=== PATIENT | male | born 1950 | race Caucasian/White ===

== ENCOUNTER 2018-11-27 19:04 | Emergency (ER) | payer OTHER ==
--- OUTSIDE RECORDS SUMMARY | 2018-11-27 19:08 | XMS REPORT | CCD ---
:1950 Demographics Address [address] [place] [address]- Home Phone Preferred Language Unknown Marital Status Unknown [employer]ar[employer] Affiliation Unknown Race Unknown Ethnic Group Unknown Author Organization [facility] Care Team Providers Name Role Phone Herlinda Sheikh Consulting Provider Unavailable Leslie Blum Consulting Provider TeriYeimy silvestre Consulting Provider Unavailable Neal Sethi Consulting Provider Unavailable PapThalia bell Consulting Provider Unavailable ChartServer, Login Consulting Provider Unavailable Cornelio Odell Consulting Provider Unavailable NONE, None Primary Care Provider Unavailable Franca Torres Consulting Provider Unavailable Adithya Larios Consulting Provider Unavailable Harley III, Justice A Consulting Provider Unavailable SYSTEM, SYSTEM Consulting Provider Unavailable Jes Nassar Consulting Provider Jose Enrique Zamora Consulting Provider Unavailable Andrew Rm Consulting Provider [phone] Tere Vivar Consulting Provider Unavailable Lori Bill Consulting Provider Unavailable Lyssa Draper Consulting Provider Dontae Quesada Consulting Provider [phone] Mike Newton Consulting Provider Argelia Tolbert Consulting Provider Mayelin Carrillo Consulting Provider Unavailable Prasanna Brandt Consulting Provider Unavailable Jeff Diamond Consulting Provider Sarah Lindsay Consulting Provider Nedra Saba Consulting Provider Unavailable Wood Sethi II Consulting Provider Unavailable Sherly Langford Consulting Provider Allergies, Adverse Reactions, Alerts Substance Reaction Status CODEINE ?? Active penicillins ?? Active Problem List Condition Effective Dates Status Kidney stone ?? Active Nephrostomy tube ?? Active Pain ?? Active Medications Medication Instructions Start Date End Date Status hydromorphone 1 mg, Route: IVP, ONCE, 01/20/2011 01/20/2011 Completed Priority: STAT, Start date: 01/20/11 17:54:00, Stop date: 01/20/11 17:54:00 Levsin SL 0.125 mg 0.125 mg, 1 tab, SL, 01/20/2011 ?? Ordered sublingual tablet Q8H, 90 tab, Substitution Allowed, TAB Levsin SL 0.125 mg 0.125 mg, 1 tab, SL, 01/20/2011 ?? Ordered sublingual tablet Q8H, 90 tab, Substitution Allowed, TAB Dilaudid 2 mg, Route: IV, ONCE, 01/20/2011 01/20/2011 Completed Priority: STAT, Start date: 01/20/11 17:55:00, Stop date: 01/20/11 17:55:00 ondansetron 4 mg, Route: IVP, Drug 01/20/2011 01/20/2011 Completed form: INJ, ONCE, Priority: STAT, Start date: 01/20/11 19:18:00, Stop date: 01/20/11 19:18:00 morphine Sulfate 4 mg, 1 mL, Route: IVP, 01/20/2011 01/20/2011 Discontinued Drug form: INJ, ONCE, Priority: STAT, Start date: 01/20/11 16:44:00, Stop date: 01/20/11 16:44:00 Sodium Chloride 0.9% 500 mL, Rate: 500 ml/hr, 01/20/2011 01/20/2011 Completed (Bolus) IV 500 mL Infuse over: 1 hr, Route: IV, Total Volume: 500, Bolus Dose, Priority: STAT, Start date: 01/20/11 16:44:00, Duration: 1 doses or times, Stop date: 01/20/11 17:43:00 Vital Signs Most recent to oldest 1 2 3 [Reference Range]: Height 175.26 cm ? (01/20/2011 12:27:00) ?? Temperature Oral 97.4 DegF 98.0 DegF 97.0 DegF [96.4-99.1 DegF] (01/20/2011 22:33:00) ?? (01/20/2011 17:07:00) ?? (2010 12:27:00) ?? Systolic Blood Pressure 125 mmHg 140 mmHg 133 mmHg [90-140 mmHg] (01/20/2011 22:33:00) ?? (01/20/2011 19:57:00) ?? (01/20/2011 17:07:00) ?? Diastolic Blood Pressure 68 mmHg 73 mmHg 70 mmHg [60-90 mmHg] (01/20/2011 22:33:00) ?? (01/20/2011 19:57:00) ?? (01/20/2011 17:07:00) ?? Respiratory Rate [14-20 18 BRMIN 16 BRMIN 16 BRMIN BRMIN] (01/20/2011 22:33:00) ?? (01/20/2011 19:57:00) ?? (01/20/2011 17:07: 00) ?? Peripheral Pulse Rate 61 bpm 61 bpm 68 bpm [60-100 bpm] (01/20/2011 22:33:00) ?? (01/20/2011 19:57:00) ?? (01/20/2011 17:07:00) ?? Weight 56.364 kg ? (01/20/2011 12:27:00) ?? Results URINALYSIS Most recent to oldest [Reference Range]: 1 UA Turbidity [>Clear] Cloudy *ABN* (01/20/2011 17:30:00) ?? UA Color [>Yellow] Red *ABN* (01/20/2011 17:30:00) ?? UA pH [5.0-8.0] 7.0 (01/20/2011 17:30:00) ?? UA Spec Grav [<<=1.030] 1.020 (01/20/2011 17:30:00) ?? UA Glucose [>Negative] Negative (01/20/2011 17:30:00) ?? UA Blood [>Negative] Large *ABN* (01/20/2011 17:30:00) ?? UA Ketones [>Negative] Negative *NA* (01/20/2011 17:30:00) ?? UA Protein [>Negative mg/dL] 100 mg/dL *ABN* (01/20/2011 17:30:00) ?? UA Urobilinogen [0.1-1.0 EU/dL] 0.2 EU/dL (01/20/2011 17:30:00) ?? UA Bili [>Negative] Negative (01/20/2011 17:30:00) ?? UA Leuk Est [>Negative] Moderate *ABN* (01/20/2011 17:30:00) ?? UA Nitrite [>Negative] Negative (01/20/2011 17:30:00) ?? UA WBC [>None Seen /HPF] 0-2 /HPF (01/20/2011 17:30:00) ?? UA RBC [>0-2 /HPF] >100 /HPF *ABN* (01/20/2011 17:30:00) ?? UA Bacteria [>None Seen /HPF] Occasional /HPF (01/20/2011 17:30:00) ?? UA Sq Epi [>Few /LPF] Rare /LPF (01/20/2011 17:30:00) ?? UA Amorph Letty [>None Seen /HPF] Occasional /HPF *ABN* (01/20/2011 17:30:00) ?? UA Mucus [>None Seen] None Seen (01/20/2011 17:30:00) ?? CHEMISTRY Most recent to oldest [Reference Range]: 1 Sodium Lvl [135-145 mEq/L] 135 mEq/L (01/20/2011 17:30:00) ?? Potassium Lvl [3.5-5.1 mEq/L] 4.3 mEq/L (01/20/2011 17:30:00) ?? Chloride Lvl [95-109 mEq/L] 97 mEq/L (01/20/2011 17:30:00) ?? CO2 [24-32 mEq/L] 28 mEq/L (01/20/2011 17:30:00) ?? AGAP [10.0-20.0 mEq/L] 14.3 mEq/L (01/20/2011 17:30:00) ?? Creatinine Lvl [0.5-1.4 mg/dL] 1.3 mg/dL (01/20/2011 17:30:00) ?? BUN [7-22 mg/dL] 14 mg/dL (01/20/2011 17:30:00) ?? Glucose Lvl 90 mg/dL 1 *NA* (01/20/2011 17:30:00) ?? Calcium Lvl [8.5-10.5 mg/dL] 9.1 mg/dL (01/20/2011 17:30:00) ?? 1Interpretive Data: Reference Ranges : 0 - 7 days : 41 - 90 mg/dL7 days - 150 yrs : 70 - 99 mg/dL (fasting), based on the clinical recommendations of the [employer].HEMATOLOGY Most recent to oldest [Reference Range]: 1 WBC [3.7-10.4 K/CMM] 5.4 K/CMM (01/20/2011 17:30:00) ?? RBC [4.70-6.10 M/CMM] 4.51 M/CMM *LOW* (01/20/2011:30:00) ?? Hgb [14.0-18.0 g/dL] 14.4 g/dL (01/20/2011:30:00) ?? Hct [42.0-54.0 %] 42.2 % (01/20/2011:30:00) ?? MCV [80.0-94.0 fL] 93.6 fL (01/20/2011:30:00) ?? MCH [27.0-31.0 pg] 31.8 pg *HI* (01/20/2011:30:00) ?? MCHC [32.0-36.0 g/dL] 34.0 g/dL (01/20/2011:30:00) ?? RDW [11.5-14.5 %] 12.5 % (01/20/2011:30:00) ?? Platelet [133-450 K/CMM] 183 K/CMM (01/20/2011:30:00) ?? MPV [7.4-10.4 fL] 8.1 fL (01/20/2011:30:00) ?? Segs [45.0-75.0 %] 65.0 % (01/20/2011:30:00) ?? Lymphocytes [20.0-40.0 %] 22.3 % (01/20/2011:30:00) ?? Monocytes [2.0-12.0 %] 8.1 % (01/20/2011:30:00) ?? Eosinophils [0.0-4.0 %] 3.0 % (01/20/2011 17:30:00) ?? Basophils [0.0-1.0 %] 1.6 % *HI* (01/20/2011 17:30:00) ?? Segs-Bands # [1.5-8.1 K/CMM] 3.5 K/CMM (01/20/2011 17:30:00) ?? Lymphocytes # [1.0-5.5 K/CMM] 1.2 K/CMM (01/20/2011 17:30:00) ?? Monocytes # [0.0-0.8 K/CMM] 0.4 K/CMM (01/20/2011 17:30:00) ?? Eosinophils # [0.0-0.5 K/CMM] 0.2 K/CMM (01/20/2011 17:30:00) ?? Basophils # [0.0-0.2 K/CMM] 0.1 K/CMM (01/20/2011 17:30:00) ?? RBC Morph Normal (01/20/2011 17:30:00) ?? Plt Morph Normal (01/20/2011 17:30:00) ?? IMMUNOLOGY Most recent to oldest [Reference Range]: 1 CDC-HIV 1/2 Ab [>Negative] Negative *NA* (01/20/2011 17:41:00) ?? Microbiology Reports PROCEDURE:Culture: Urine STATUS: Auth (Verified) BODY SITE: ?? COLLECTED DATE/TIME: 01/20/2011 16:40:00 SOURCE: Urine, Catheterized FREE TEXT SOURCE: CUP FINAL REPORTS Final ReportNo Growth At 2 DaysPRELIMINARY REPORTS* Preliminary ReportNo Growth After Overnight Incubation
--- OUTSIDE RECORDS SUMMARY | 2018-11-27 19:08 | XMS REPORT | Continuity of Care Document ---
:1950 Demographics Address [address] [place] [address] Home Phone Preferred Language en-US Marital Status Unknown Hoahaoism Affiliation Unknown Race Unknown Ethnic Group Unknown Author Organization [facility] Care Team Providers Name Role Phone [employer] Unavailable Unavailable Problems Problem Status Onset Classification Date Comments Source Date Reported CHEST PAIN Active [place] LOWER BACK PAIN Active [address] KIDNEY STONES Active [address] LIFEFL[employer] Active [address] HEADACHE Active [address] Kidney stone Active Problem 01/26/2011 [facility] [place] Nephrostomy Active Problem 01/26/2011 [facility] [place] Pain Active Problem 01/26/2011 [facility] [place] CALCULUS OF Active [facility] KIDNEY ANOMALY Active [facility] Medications Medication Details Route Status Patient Ordering Order Source Instructions Provider Date Vicodin 5/500 2 tab, Route: PO No Cristian [place] oral tablet PO, Drug Form: [place] [place] TAB, ONCE, Active Start date: 01/24/11 19:10:00, Stop date: 01/24/11 19:10:00 Flomax 0.4 mg 0.4 mg, 1 cap, PO Active Cristian [place] oral capsule PO, Daily, 30 [address] [place] cap, Substitution Allowed, CAP [place] 10/325 1 tab, PO, PO Active Cristian [place] oral tablet Q4-6H, PRN, 24 011 [place] tab, as needed for pain, Substitution Allowed, Maintenance NS (Bolus) IV 1,000 mL, IV No Cristian [place] 1000 mL Rate: 1,000 Longer 011 [place] ml/hr, Infuse Active over: 1 hr, Route: IV, Total Volume: 1,000, Priority: STAT, Start date: 01/24/11 16:03:00, Duration: 1 doses or times, Stop date: 01/24/11 17:02:00, Bolus DoseBolus Dose Zofran 4 mg, 2 mL, IVP No Cristian [place] Route: IVP, Longer [facility] Drug form: Active INJ, ONCE, Priority: STAT, Start date: 01/24/11 16:03:00, Stop date: 01/24/11 16:03:00 Dilaudid 1 mg, 0.5 mL, IV No Cristian [place] Route: IV, Longer [facility] Drug form: Active INJ, ONCE, Priority: STAT, Start date: 01/24/11 16:03:00, Stop date: 01/24/11 16:03:00 Saline Flush 5 ml, Route: IVP No Cristian [place] 0.9% IVP, Drug Longer [facility] Form: INJ, Active PRN, PRN Line Flush, Start date: 01/24/11 15:10:00, Duration: 24 hr, Stop date: 01/25/11 15:09:00 aspirin 325 mg 325 mg, 1 tab, PO No Yeaton [place] tablet Route: PO, Longer [facility] Drug form: Active TAB, ONCE, Priority: STAT, Start date: 01/24/11 15:03:00, Stop date: 01/24/11 15:03:00 Saline Flush 5 ml, Route: IVP No Milile [place] 0.9% IVP, Drug Longer [facility] Form: INJ, Active PRN, PRN Line Flush, Start date: 01/24/11 15:03:00, Duration: 30 day, Stop date: 02/23/11 15:02:00 Unknown Home Substitution Active [place] Medication Allowed [facility] Vicodin 5/500 Substitution Active [place] oral tablet Allowed, [address] [place] Maintenance Levsin SL 0.125 0.125 mg, 1 SL Active Sethi [place] mg sublingual tab, SL, Q8H, 011 Medical tablet 90 tab, Center Substitution Allowed, TAB Levsin SL 0.125 0.125 mg, 1 SL Active Sethi [place] mg sublingual tab, SL, Q8H, 011 Medical tablet 90 tab, Center Substitution Allowed, TAB ondansetron 4 mg, Route: IVP No Ric [facility] [place] IVP, Drug Longer 011 Medical form: INJ, Active Center ONCE, Priority: STAT, Start date: 01/20/11 19:18:00, Stop date: 01/20/11 19:18:00 Dilaudid 2 mg, Route: IV Zoë Larios [facility] [place] IV, ONCE, Longer 011 Medical Priority: Active Center STAT, Start date: 01/20/11 17:55:00, Stop date: 01/20/11 17:55:00 hydromorphone 1 mg, Route: IVP Zoë Larios [facility] IVP, ONCE, Longer 011 Medical Priority: Active Center STAT, Start date: 01/20/11 17:54:00, Stop date: 01/20/11 17:54:00 morphine Sulfate 4 mg, 1 mL, IVP Zoë Larios [facility] Route: IVP, Longer 011 Medical Drug form: Active Center INJ, ONCE, Priority: STAT, Start date: 01/20/11 16:44:00, Stop date: 01/20/11 16:44:00 Sodium Chloride 500 mL, Rate: IV Zoë Larios [facility] 0.9% (Bolus) IV 500 ml/hr, Longer 011 Medical 500 mL Infuse over: 1 Active Center hr, Route: IV, Total Volume: 500, Bolus Dose, Priority: STAT, Start date: 01/20/11 16:44:00, Duration: 1 doses or times, Stop date: 01/20/11 17:43:00 Allergies, Adverse Reactions, Alerts Substance Category Reaction Severity Reaction Status Date Comments Source type Reported CODEINE drug Allergy Active [place] allergy [facility] penicillins drug Allergy Active [facility] Immunizations No Data Provided for This Section Results Order Name Results Value Reference Date Interpretation Comments Source Range CHEMISTRY Lipase Lvl 127.0 73 - 393 01/24 [place] CHEMISTRY Amylase Lvl 63.0 25 - 115 01/24 [place] CHEMISTRY Total CK 74.0 12 - 191 01/24 [place] CHEMISTRY CK MB 1.2 0.5 - 3.6 01/24 [place] CHEMISTRY Troponin-I <0.02 0.00 - 09 Normal [place] 0.40 /2010 [place] CHEMISTRY AST 11.0 0 - 37 01/24 [place] CHEMISTRY Bili Total 0.2 0.2 - 1.3 01/24 Normal [place] CHEMISTRY Alk Phos 84.0 39 - 136 01/24 Normal [place] CHEMISTRY ALT 16.0 0 - 65 01/24 Normal [place] CHEMISTRY Albumin Lvl 3.7 3.5 - 5.0 01/24 Normal [place] CHEMISTRY A/G Ratio 0.9 0.7 - 1.6 01/24 Normal [place] /2010 [place] CHEMISTRY Globulin 3.9 2.0 - 4.0 01/24 Normal [place] CHEMISTRY B/C Ratio 13.0 6 - 25 01/24 Normal [place] CHEMISTRY AGAP 13.7 10.0 - 09 Normal [place] 20.0 /2010 [place] CHEMISTRY Sodium Lvl 136.0 135 - 145 01/24 Normal [place] CHEMISTRY Creatinine 1.6 0.5 - 1.4 01/24 HI [place] Lvl /2010 [place] CHEMISTRY BUN 20.0 7 - 22 01/24 Normal [place] CHEMISTRY Glucose Lvl 97.0 01/24 NA <sup>1</sup>I [place] nterpretive [place] Data: Reference Ranges : 0 - 7 days : 41 - 90 mg/dL 7 days - 150 yrs : 70 - 99 mg/dL (fasting), based on the clinical recommendatio ns of the [place] [employer]. CHEMISTRY Potassium Lvl 3.7 3.5 - 5.1 01/24 Normal [place] CHEMISTRY Total Protein 7.6 6.4 - 8.4 01/24 Normal [place] CHEMISTRY Calcium Lvl 9.1 8.5 - 10.5 01/24 Normal [place] CHEMISTRY CO2 25.0 24 - 32 01/24 Normal [place] CHEMISTRY Chloride Lvl 101.0 95 - 109 01/24 Normal [place] CHEMISTRY CK MB Index 1.6 0.0 - 2.5 01/24 Normal [place] HEMATOLOGY PTT 30.9 22.9 - 01/24 Normal <sup>3</sup>I MH [place] 35.8 /2011 nterpretive [place] Data: Heparin Therapeutic Range: 57 - 92 Seconds HEMATOLOGY PT 12.0 12.0 - 09 Normal [place] 14.7 /2011 [place] HEMATOLOGY INR 0.88 0.85 - 01/24 Normal <sup>2</sup>I [place] 1.17 /2010 [place]terpretive [place] Data: RECOMMENDED RANGES FOR PROTIME INR: 2.0-3.0 for most medical and surgical thromboemboli c states. 2.5-3.5 for artificial heart valves and recurrent embolism. INR SHOULD BE USED ONLY FOR PATIENTS ON STABLE ANTICOAGULANT THERAPY. HEMATOLOGY MCH 32.2 27.0 - 01/24 [facility] [place] 31.0 /2010 [place] HEMATOLOGY MCV 94.6 80.0 - 09 [facility] Sugar 94.0 /2010 [facility] HEMATOLOGY RDW 13.4 11.5 - 09 Normal [place] 14.5 /2010 [facility] HEMATOLOGY MCHC 34.0 32.0 - 01/24 Normal [place] 36.0 /2010 [facility] HEMATOLOGY MPV 7.5 7.4 - 10.4 01/24 Normal [place] /2010 [facility] HEMATOLOGY Platelet 194.0 133 - 450 01/24 Normal [place] /2010 [facility] HEMATOLOGY Hgb 13.4 14.0 - 01/24 LOW [place] 18.0 /2010 [facility] HEMATOLOGY RBC 4.16 4.70 - 01/24 LOW [place] 6.10 /2010 [place] HEMATOLOGY Hct 39.4 42.0 - 01/24 LOW [place] 54.0 /2010 [place] HEMATOLOGY WBC 5.5 3.7 - 10.4 01/24 Normal [place] /2010 [facility] HEMATOLOGY Segs 66.1 45.0 - 01/24 Normal [place] 75.0 /2010 [place] HEMATOLOGY Monocytes 7.5 2.0 - 12.0 01/24 Normal [place] /2010 [place] HEMATOLOGY Lymphocytes 22.5 20.0 - 01/24 Normal [place] 40.0 /2010 [place] HEMATOLOGY Eosinophils 3.1 0.0 - 4.0 / Normal [place] /2010 [place] HEMATOLOGY Monocytes # 0.4 0.0 - 0.8 / Normal [place] /2010 [place] HEMATOLOGY Lymphocytes # 1.2 1.0 - 5.5 / Normal [place] /2010 [place] HEMATOLOGY Eosinophils # 0.2 0.0 - 0.5 / Normal [place] /2010 [place] HEMATOLOGY Basophils 0.8 0.0 - 1.0 / Normal [place] /2010 [place] HEMATOLOGY Segs-Bands # 3.6 1.5 - 8.1 01/24 Normal [place] /2010 [place] HEMATOLOGY Basophils # 0.0 0.0 - 0.2 01/24 Normal [place] URINALYSIS UA pH 7.0 5.0 - 8.0 01/24 Normal [place] URINALYSIS UA Protein >=300 mg/dL >Negative 01/24 ABN [place] *ABN* Land (01/24/2011 15:00:00) ?? URINALYSIS UA Color Red >Yellow 01/24 [facility] [place] *ABN* [place] (01/24/2011 15:00:00) ?? URINALYSIS UA Turbidity Cloudy >Clear 01/24 ABN [place] *ABN* [place] (01/24/2011 15:00:00) ?? URINALYSIS UA Spec Grav 1.02 <<=1.030 01/24 Normal [place] URINALYSIS UA WBC 0-2 /HPF >None Seen 01/24 Normal [place] (01/24/2011 15:00:00) ?? Land URINALYSIS UA RBC >100 /HPF >0 - 2 01/24 [facility] [place] *ABN* [place] (01/24/2011 15:00:00) ?? URINALYSIS UA Bacteria Occasional /HPF >None Seen 01/24 Normal [place] (01/24/2011 15:00:00) ?? Land URINALYSIS UA Nitrite Negative >Negative 01/24 Normal [place] (01/24/2011 15:00:00) ?? Land URINALYSIS UA Leuk Est Moderate >Negative 01/24 [facility] [place] *ABN* [place] (01/24/2011 15:00:00) ?? URINALYSIS UA Sq Epi Rare /LPF >Few 01/24 Normal [place] (01/24/2011 15:00:00) ?? Land URINALYSIS UA 0.2 0.1 - 1.0 01/24 Normal [place] Urobilinogen /2010 [place] URINALYSIS UA Glucose Negative >Negative 01/24 Normal [place] (01/24/2011 15:00:00) ?? Land URINALYSIS UA Ketones Negative >Negative 01/24 NA [place] *NA* Land (01/24/2011 15:00:00) ?? URINALYSIS UA Bili Negative >Negative 01/24 NA [place] *NA* Land (01/24/2011 15:00:00) ?? URINALYSIS UA Blood Large >Negative 01/24 ABN [place] *ABN* /2010 [place] (01/24/2011 15:00:00) ?? IMMUNOLOGY [facility]-HIV 1/2 Negative >Negative 01/20 NA [facility] Ab *NA* /2010 Medical (01/20/2011 17:41:00) ?? Center CHEMISTRY AGAP 14.3 10.0 - 01/20 Normal [facility] 20.0 Medical Center CHEMISTRY Calcium Lvl 9.1 8.5 - 10.5 01/20 Normal [facility] Center CHEMISTRY Sodium Lvl 135.0 135 - 145 01/20 Normal [facility] Center CHEMISTRY Creatinine 1.3 0.5 - 1.4 01/20 Normal [facility] Lvl [facility] Center CHEMISTRY Glucose Lvl 90.0 01/20 NA <sup>1</sup>I nterpretive Medical Data: Center Reference Ranges : 0 - 7 days : 41 - 90 mg/dL 7 days - 150 yrs : 70 - 99 mg/dL (fasting), based on the clinical recommendatio ns of the [place] [employer]. CHEMISTRY BUN 14.0 7 - 22 01/20 Normal [facility] CHEMISTRY Potassium Lvl 4.3 3.5 - 5.1 01/20 Normal [facility] Center CHEMISTRY CO2 28.0 24 - 32 01/20 Normal [facility] Center CHEMISTRY Chloride Lvl 97.0 95 - 109 01/20 Normal [facility] HEMATOLOGY MPV 8.1 7.4 - 10.4 01/20 Normal [facility] HEMATOLOGY MCHC 34.0 32.0 - 01/20 Normal [place] 36.0 [facility] Center HEMATOLOGY MCH 31.8 27.0 - 09 HI [place] 31.0 [facility] Center HEMATOLOGY RDW 12.5 11.5 - 01/20 Normal [place] 14.5 [facility] HEMATOLOGY Platelet 183.0 133 - 450 01/20 Normal [facility] HEMATOLOGY Hgb 14.4 14.0 - 01/20 Normal [place] 18.0 /2010 [facility] HEMATOLOGY MCV 93.6 80.0 - 01/20 Normal [place] 94.0 [facility] HEMATOLOGY Hct 42.2 42.0 - 01/20 Normal [place] 54.0 /2010 Medical Center HEMATOLOGY WBC 5.4 3.7 - 10.4 01/20 Normal Medical Center HEMATOLOGY RBC 4.51 4.70 - 01/20 LOW [place] 6.10 /2010 Medical Center HEMATOLOGY Basophils 1.6 0.0 - 1.0 / [place] [facility] HEMATOLOGY Segs-Bands # 3.5 1.5 - 8.1 01/20 Normal [facility] [place] HEMATOLOGY Monocytes # 0.4 0.0 - 0.8 01/20 Normal Medical [facility] HEMATOLOGY Eosinophils # 0.2 0.0 - 0.5 01/20 Normal Medical [facility] HEMATOLOGY Basophils # 0.1 0.0 - 0.2 01/20 Normal Medical [facility] HEMATOLOGY RBC Morph Normal 01/20 Normal [facility] [place] (01/20/2011 17:30:00) ?? [facility] HEMATOLOGY Monocytes 8.1 2.0 - 12.0 01/20 Normal [facility] HEMATOLOGY Eosinophils 3.0 0.0 - 4.0 01/20 Normal [facility] HEMATOLOGY Lymphocytes 22.3 20.0 - 01/20 Normal [place] 40.0 Medical Center HEMATOLOGY Lymphocytes # 1.2 1.0 - 5.5 01/20 Normal Medical Center HEMATOLOGY Plt Morph Normal 01/20 Normal [facility] [place] (01/20/2011 17:30:00) ?? [facility] HEMATOLOGY Segs 65.0 45.0 - 01/20 Normal [place] 75.0 Medical Center URINALYSIS UA Protein 100 mg/dL >Negative 01/20 ABN [facility] [place] *ABN* Medical (01/20/2011 17:30:00) ?? Center URINALYSIS UA pH 7.0 5.0 - 8.0 01/20 Normal Medical Center URINALYSIS UA Bili Negative >Negative 01/20 Normal [facility] [place] (01/20/2011 17:30:00) ? Medical Center URINALYSIS UA Ketones Negative >Negative 01/20 NA [facility] [place] *NA* Medical (01/20/2011 17:30:00) ?? Center URINALYSIS UA Glucose Negative >Negative 01/20 Normal [facility] [place] (01/20/2011 17:30:00) ?? Medical Center URINALYSIS UA Spec Grav 1.02 <<=1.030 01/20 Normal [place] [facility] URINALYSIS UA Turbidity Cloudy >Clear 01/20 ABN [place] *ABN* Medical (01/20/2011 17:30:00) ?? Center URINALYSIS UA Color Red >Yellow 01/20 [facility] *ABN* Medical (01/20/2011 17:30:00) ?? Center URINALYSIS UA Leuk Est Moderate >Negative 01/20 ABN [facility] [place] *ABN* Medical (01/20/2011 17:30:00) ?? Center URINALYSIS UA Nitrite Negative >Negative 01/20 Normal [facility] [place] (01/20/2011 17:30:00) ?? Medical Center URINALYSIS UA 0.2 0.1 - 1.0 01/20 Normal [facility] Urobilinogen [facility]YSIS [facility] Blood Large >[facility] ?? Center URINALYSIS UA Amorph Occasional /HPF >None Seen 01/20 [facility] *ABN* Medical (01/20/2011 17:30:00) ?? Center URINALYSIS UA Mucus None Seen >None Seen 01/20 Normal [facility] [place] (01/20/2011 17:30:00) ?? Medical Center URINALYSIS UA Sq Epi Rare /LPF >Few 01/20 Normal [facility] [place] (01/20/2011 17:30:00) ?? Medical Center URINALYSIS UA WBC 0-2 /HPF >None Seen 01/20 Normal [facility] [place] (01/20/2011 17:30:00) ?? Medical Center URINALYSIS UA Bacteria Occasional /HPF >None Seen 01/20 [facility] (01/20/2011 17:30:00) ?? /2010 Medical Center URINALYSIS UA RBC >100 /HPF >0 - 2 01/20 [facility] *ABN* Medical (01/20/2011 17:30:00) ?? Center Microbiolog Culture: 01/20 [facility] y Urine Medical Center Pathology Reports No Data Provided for This Section Diagnostic Reports No Data Provided for This Section Consultation Notes No Data Provided for This Section Discharge Summaries No Data Provided for This Section History and Physicals No Data Provided for This Section Vital Signs Vital Sign Value Date Comments Source Systolic (mm Hg) 136.0 01/25/2011 [place] Diastolic (mm Hg) 64.0 01/25/2011 [place] Peripheral Pulse Rate 58.0 01/25/2011 [place] Temperature Oral (F) 97.7 F 01/25/2011 [place] Respitory Rate 20.0 01/25/2011 [place] Height 175.26 cm 01/24/2011 [place] Weight 58.636 01/24/2011 [place] Temperature Oral (F) 97.4 F 01/24/2011 [place] Respitory Rate 20.0 01/24/2011 [place] Systolic (mm Hg) 129.0 01/24/2011 [place] Peripheral Pulse Rate 79.0 01/24/2011 [place] Diastolic (mm Hg) 74.0 01/24/2011 [place] Systolic (mm Hg) 125.0 01/21/2011 [facility] Diastolic (mm Hg) 68.0 01/21/2011 [facility] Peripheral Pulse Rate 61.0 01/21/2011 [facility] Temperature Oral (F) 97.4 F 01/21/2011 [facility] Respitory Rate 18.0 01/21/2011 [facility] Systolic (mm Hg) 140.0 01/21/2011 [facility] Respitory Rate 16.0 01/21/2011 [facility] Center Diastolic (mm Hg) 73.0 01/21/2011 [facility] Peripheral Pulse Rate 61.0 01/21/2011 [facility] Temperature Oral (F) 98.0 F 01/20/2011 [facility] Respitory Rate 16.0 01/20/2011 [facility] Peripheral Pulse Rate 68.0 01/20/2011 [facility] Diastolic (mm Hg) 70.0 01/20/2011 [facility] Systolic (mm Hg) 133.0 01/20/2011 [facility] Height 175.26 cm 01/20/2011 [facility] Weight 56.364 01/20/2011 [facility] Temperature Oral (F) 97.0 F 01/20/2011 [facility] Encounters Location Location Encounter Encounter Reason Attending ADM DC Status Source Details Type Number For Provider Date Date Visit [facility] Emergency [id number] HEADACHE STEPHANY 09/23 09/24 Active [facility] [place] [facility] 7 MAGDY /2009 [facility] AA [id number] [employer] KIRSTIN HENRIQUEZ 09/23 09/23 Active [facility] Medical 0 HT /2009 [facility] Inpatient [id number] KIDNEY JENNIFER 09/22 09/25 Active [facility] Medical 0 [employer] [facility] OU [id number] KIDNEY JENNIFER 10/29 10/30 Active [facility] Medical 7 [employer] [facility] Emergency [id number] MURPHY 01/20 01/20 Discharg [facility] Medical 1 NOFFSINGER /2010 ed [facility] Emergency [id number] CHEST CHRISTOPHER 01/24 01/24 Active [place] 2 PAIN CRISTIAN /2010 [place] Procedures No Data Provided for This Section Assessment and Plan No Data Provided for This Section Plan of Care No Data Provided for This Section Social History No Data Provided for This Section Family History No Data Provided for This Section Advance Directives No Data Provided for This Section Functional Status No Data Provided for This Section
--- OUTSIDE RECORDS SUMMARY | 2018-11-27 19:09 | XMS REPORT ---
:1950 [facility] Address [address] [facility] [place] [address] Care Team Providers Name Role Phone DR LOLIS EVANGELISTA Unavailable Unavailable Problems This patient has no known problems. Allergies, Adverse Reactions, Alerts This patient has no known allergies or adverse reactions. Medications This patient has no known medications. Encounters Start End Encounter Admission Attending Care Care Encounter Date/Time Date/Time Type Type Clinicians Facility Department ID 2018-02-02 2018-02-02 Inpatient C LOLIS EVANGELISTA [facility] [id number] 17:59:00 22:55:00
--- OUTSIDE RECORDS SUMMARY | 2018-11-27 19:09 | XMS REPORT | CCD ---
:1950 Demographics Address [address] [place] [address]- Home Phone Preferred Language Unknown Marital Status Unknown Anabaptist Affiliation Unknown Race Unknown Ethnic Group Unknown Author Organization [facility] Team Providers Name Role Phone Leslie Blum Consulting Provider Yeimy Williamson Consulting Provider Unavailable Ed Mckeon Consulting Provider Unavailable PCP, None Consulting Provider Unavailable Tiara Aponte Consulting Provider Unavailable Mignon Guajardo Consulting Provider Thalia Salomon Consulting Provider Unavailable Joaquina Cruz Consulting Provider [phone] Nneka Tee Consulting Provider Unavailable [employer], Login Consulting Provider Unavailable Norma Redd Consulting Provider [phone] Maria C Ken Consulting Provider Unavailable Winnie Valencia Consulting Provider [phone] NONE, None Primary Care Provider Unavailable Luis Hoover Consulting Provider [phone] Jim Foster Consulting Provider SYSTEM, SYSTEM Consulting Provider Unavailable Jes Nassar Consulting Provider Tere Vivar Consulting Provider Unavailable Gisel Parikh Consulting Provider Tyler Keareny Consulting Provider Mary Keith Consulting Provider [phone] Sarah Lindsay Consulting Provider Dolores Thompson Consulting Provider [phone] Darline Amezquita Consulting Provider Unavailable Allergies, Adverse Reactions, Alerts Substance Reaction Status CODEINE ?? Active penicillins ?? Canceled Problem List Condition Effective Dates Status Kidney stone ?? Active Nephrostomy tube ?? Active Pain ?? Active Medications Medication Instructions Start Date End Date Status aspirin 325 mg tablet 325 mg, 1 tab, Route: PO, 01/24/2011 01/24/2011 Discontinued Drug form: TAB, ONCE, Priority: STAT, Start date: 01/24/11 15:03:00, Stop date: 01/24/11 15:03:00 Saline Flush 0.9% 5 ml, Route: IVP, Drug 01/24/2011 01/24/2011 Discontinued Form: INJ, PRN, PRN Line Flush, Start date: 01/24/11 15:03:00, Duration: 30 day, Stop date: 02/23/11 15:02:00 Vicodin 5/500 oral 2 tab, Route: PO, Drug 01/24/2011 01/24/2011 Completed tablet Form: TAB, ONCE, Start date: 01/24/11 19:10:00, Stop date: 01/24/11 19:10:00 NS (Bolus) IV 1000 mL 1,000 mL, Rate: 1,000 ml/hr, Infuse over: 1 hr, Route: IV, Total Volume: 1,000, Priority: STAT, Start date: 01/24/11 16:03:00, Duration : 1 doses or times, Stop date: 01/24/11 17:02:00, Bolus Dose 01/24/20112010 Completed Bolus Dose Zofran 4 mg, 2 mL, Route: IVP, 01/24/2011 01/24/2011 Completed Drug form: INJ, ONCE, Priority: STAT, Start date: 01/24/11 16:03:00, Stop date: 01/24/11 16:03:00 Dilaudid 1 mg, 0.5 mL, Route: IV, 01/24/2011 01/24/2011 Completed Drug form: INJ, ONCE, Priority: STAT, Start date: 01/24/11 16:03:00, Stop date: 01/24/11 16:03:00 Unknown Home Medication Substitution Allowed 01/24/2011 ?? Ordered Vicodin 5/500 oral Substitution Allowed, 01/24/2011 ?? Ordered tablet Maintenance Saline Flush 0.9% 5 ml, Route: IVP, Drug 01/24/2011 01/24/2011 Discontinued Form: INJ, PRN, PRN Line Flush, Start date: 01/24/11 15:10:00, Duration: 24 hr, Stop date: 01/25/11 15:09:00 Flomax 0.4 mg oral 0.4 mg, 1 cap, PO, Daily, 01/24/2011 ?? Ordered capsule 30 cap, Substitution Allowed, CAP [place] 10/325 oral tablet 1 tab, PO, Q4-6H, PRN, 24 01/24/2011 01/28/2011 Ordered tab, as needed for pain, Substitution Allowed, Maintenance Vital Signs Most recent to oldest [Reference 1 2 Range]: Height 175.26 cm ?? (01/24/2011 14:40:00) ?? Temperature Oral [96.4-99.1 DegF] 97.7 DegF 97.4 DegF (01/24/2011 19:06:00) ?? (01/24/2011 14:40:00) ?? Systolic Blood Pressure [90-140 136 mmHg 129 mmHg mmHg] (01/24/2011 19:06:00) ?? (01/24/2011 14:40:00) ?? Diastolic Blood Pressure [60-90 64 mmHg 74 mmHg mmHg] (01/24/2011 19:06:00) ?? (01/24/2011 14:40:00) ?? Respiratory Rate [14-20 BRMIN] 20 BRMIN 20 BRMIN (01/24/2011 19:06:00) ?? (01/24/2011 14:40:00) ?? Peripheral Pulse Rate [60-100 bpm] 58 bpm 79 bpm *LOW* (01/24/2011 14:40:00) ?? (01/24/2011 19:06:00) ?? Weight 58.636 kg ?? (01/24/2011 14:40:00) ?? Results URINALYSIS Most recent to oldest [Reference Range]: 1 UA Turbidity [>Clear] Cloudy *ABN* (01/24/2011 15:00:00) ?? UA Color [>Yellow] Red *ABN* (01/24/2011 15:00:00) ?? UA pH [5.0-8.0] 7.0 (01/24/2011 15:00:00) ?? UA Spec Grav [<<=1.030] 1.020 (01/24/2011 15:00:00) ?? UA Glucose [>Negative] Negative (01/24/2011 15:00:00) ?? UA Blood [>Negative] Large *ABN* (01/24/2011 15:00:00) ?? UA Ketones [>Negative] Negative *NA* (01/24/2011 15:00:00) ?? UA Protein [>Negative mg/dL] >=300 mg/dL *ABN* (01/24/2011 15:00:00) ?? UA Urobilinogen [0.1-1.0 EU/dL] 0.2 EU/dL (01/24/2011 15:00:00) ?? UA Bili [>Negative] Negative *NA* (01/24/2011 15:00:00) ?? UA Leuk Est [>Negative] Moderate *ABN* (01/24/2011 15:00:00) ?? UA Nitrite [>Negative] Negative (01/24/2011 15:00:00) ?? UA WBC [>None Seen /HPF] 0-2 /HPF (01/24/2011 15:00:00) ?? UA RBC [>0-2 /HPF] >100 /HPF *ABN* (01/24/2011 15:00:00) ?? UA Bacteria [>None Seen /HPF] Occasional /HPF (01/24/2011 15:00:00) ?? UA Sq Epi [>Few /LPF] Rare /LPF (01/24/2011 15:00:00) ?? CHEMISTRY Most recent to oldest [Reference Range]: 1 Sodium Lvl [135-145 mEq/L] 136 mEq/L (01/24/2011 15:11:00) ?? Potassium Lvl [3.5-5.1 mEq/L] 3.7 mEq/L (01/24/2011 15:11:00) ?? Chloride Lvl [95-109 mEq/L] 101 mEq/L (01/24/2011 15:11:00) ?? CO2 [24-32 mEq/L] 25 mEq/L (01/24/2011 15:11:00) ?? AGAP [10.0-20.0 mEq/L] 13.7 mEq/L (01/24/2011 15:11:00) ?? Creatinine Lvl [0.5-1.4 mg/dL] 1.6 mg/dL *HI* (01/24/2011 15:11:00) ?? BUN [7-22 mg/dL] 20 mg/dL (01/24/2011 15:11:) ?? B/C Ratio [6-25] 13 (01/24/2011::) ?? Glucose Lvl 97 mg/dL 1 *NA* (01/24/2011::) ?? Total Protein [6.4-8.4 g/dL] 7.6 g/dL (01/24/2011::) ?? Albumin Lvl [3.5-5.0 g/dL] 3.7 g/dL (01/24/2011::) ?? Globulin [2.0-4.0 g/dL] 3.9 g/dL (01/24/2011::) ?? A/G Ratio [0.7-1.6] 0.9 (01/24/2011::) ?? Calcium Lvl [8.5-10.5 mg/dL] 9.1 mg/dL (01/24/2011::) ?? ALT [0-65 U/L] 16 U/L (01/24/2011::) ?? AST [0-37 U/L] 11 U/L (01/24/2011::) ?? Alk Phos [39-136 U/L] 84 U/L (01/24/2011::) ?? Bili Total [0.2-1.3 mg/dL] 0.2 mg/dL (01/24/2011::) ?? Amylase Lvl [25-115 U/L] 63 U/L (01/24/2011::) ?? Lipase Lvl [73-393 U/L] 127 U/L (01/24/2011:11:00) ?? Total CK [12-191 U/L] 74 U/L (01/24/2011:11:) ?? CK MB [0.5-3.6 ng/mL] 1.2 ng/mL (01/24/2011:11:00) ?? CK MB Index [0.0-2.5] 1.6 (01/24/2011:) ?? Troponin-I [0.00-0.40 ng/mL] <0.02 ng/mL (01/24/2011::) ?? 1Interpretive Data: Reference Ranges : 0 - 7 days : 41 - 90 mg/dL7 days - 150 yrs : 70 - 99 mg/dL (fasting), based on the clinical recommendations of the [place] [employer].HEMATOLOGY Most recent to oldest [Reference Range]: 1 WBC [3.7-10.4 K/CMM] 5.5 K/CMM (01/24/2011:) ?? RBC [4.70-6.10 M/CMM] 4.16 M/CMM *LOW* (01/24/2011) ?? Hgb [14.0-18.0 g/dL] 13.4 g/dL *LOW* (01/24/2011:) ?? Hct [42.0-54.0 %] 39.4 % *LOW* (01/24/2011) ?? MCV [80.0-94.0 fL] 94.6 fL *HI* (01/24/2011) ?? MCH [27.0-31.0 pg] 32.2 pg *HI* (01/24/2011) ?? MCHC [32.0-36.0 g/dL] 34.0 g/dL (01/24/2011) ?? RDW [11.5-14.5 %] 13.4 % (01/24/2011) ?? Platelet [133-450 K/CMM] 194 K/CMM (01/24/2011:) ?? MPV [7.4-10.4 fL] 7.5 fL (01/24/2011) ?? Segs [45.0-75.0 %] 66.1 % (01/24/2011:) ?? Lymphocytes [20.0-40.0 %] 22.5 % (01/24/2011) ?? Monocytes [2.0-12.0 %] 7.5 % (01/24/2011::) ?? Eosinophils [0.0-4.0 %] 3.1 % (01/24/2011) ?? Basophils [0.0-1.0 %] 0.8 % (01/24/2011) ?? Segs-Bands # [1.5-8.1 K/CMM] 3.6 K/CMM (01/24/2011) ?? Lymphocytes # [1.0-5.5 K/CMM] 1.2 K/CMM (01/24/2011::) ?? Monocytes # [0.0-0.8 K/CMM] 0.4 K/CMM (01/24/2011::) ?? Eosinophils # [0.0-0.5 K/CMM] 0.2 K/CMM (01/24/2011::) ?? Basophils # [0.0-0.2 K/CMM] 0.0 K/CMM (01/24/2011::) ?? PT [12.0-14.7 seconds] 12.0 seconds (01/24/2011:) ?? INR [0.85-1.17] 0.88 2 (01/24/2011) ?? PTT [22.9-35.8 seconds] 30.9 seconds 3 (01/24/2011:) ?? 2Interpretive Data: RECOMMENDED RANGES FOR PROTIME INR: 2.0-3.0 for most medical and surgical thromboembolic states. 2.5-3.5 for artificial heart valves and recurrent embolism.INR SHOULD BE USED ONLY FOR PATIENTS ON STABLE ANTICOAGULANT THERAPY.3Interpretive Data: Heparin Therapeutic Range: 57 - 92 Seconds
[2018-11-27] MEDS ORDERED: NA CHLORIDE 0.9% 1,000 ML ONE (19:42)
[2018-11-27] MEDS ORDERED: FENTANYL CITR 100 MCG/2 ML ONE (19:42)
[2018-11-27] MEDS ORDERED: ONDANSETRON 4 MG/2 ML VIAL ONE ×2 (19:42→21:25)
--- NOTE | 2018-11-27 20:15 | RAD REPORT ---
EXAM DESCRIPTION: CT - Head C Spine Cap Wo Con - 11/27/2018 7:52 pm CLINICAL HISTORY: Trauma head, neck, chest and abdomen pain COMPARISON: CT abdomen and pelvis September 2016. TECHNIQUE: Axial [address] head images were obtained. Axial [address] cervical spine images were obtain ed with sagittal and coronal reconstruction images reviewed. Axial 5 mm images of the chest, abdomen and pelvis were obtained. All CT scans are performed using dose optimization technique as appropriate and may include automated exposure control or mA/KV adjustment according to patient size. FINDINGS: No intracranial hemorrhage, mass or edema. No midline shift or abnormal fluid collection. Mastoid air cells and paranasal sinuses are clear. No skull fracture. Mild atrophy and minimal chron ic ischemic change present. Ventricles are in proportion to volume loss. Cervical bodies are normal in height. There is reversal of the usual cervical lordosis and slight ret rolisthesis of C5 relative to C4 and C6 bodies. C5-6 and C6-7 disc space narrowing present. No fractu re or acute bone finding.No other significant disc space narrowing seen. Prominent degenerative bacon e at the dens anterior arch C1 level. Left bony foraminal encroachment at C3-4. Prominent left facet degenerative change at C4-5. Bilateral bony foraminal encroachment at C5-6 and significant right bony foraminal stenosis at C6-7.No prevertebral soft tissue thickening or paraspinal mass.Central canal d etail is inherently limited on CT imaging. CT chest shows no pneumothorax, pulmonary contusion or pleural fluid collection. Scarring changes are present in the lung parenchyma. There is a calcified granuloma seen in the left upper lobe. In the p osterior gutter on the left there is a 12 x 5 mm spiculated density more pronounced than seen in 2017 . In all likelihood this is progressive scarring. However, given the growth, continued close follow-u p is needed. CT re-evaluation in 3-6 months is recommended. PET-CT imaging could potentially be used if the patient has risk factors. The size and shape of the mass is currently borderline for accurate PET evaluation. No mediastinal hematoma and the aorta and pulmonary arteries are unremarkable. No kiesha st will mass or abnormal axillary finding. No displaced rib fracture or other significant bony findin g. Pectus excavatum deformity is present. There is no pericardial thickening or effusion. No acute injury to the solid abdominal viscera is seen. Patient has multiple bilateral nonobstructing calculi 3-7 mm in size. Gallbladder and biliary tree are unremarkable. No gastric dilatation or wall thickening. Moderately large stool volume present throughout the colon. There is prominent sigmoid d iverticulosis without diverticulitis. Patient has several distal small bowel loops that are distended to mildly dilated. No obstructing mass or abrupt transition point not confirmed. No free air, free fluid or abnormal stranding. No hernia, mass or bulky lymphadenopathy. Disc and bony degenerative changes are present. Patient has very dense arterial tree calcifications. A 3.1 x 3.1 cm infrarenal abdominal aortic aneur ysm present. No displaced calcifications. IMPRESSION: Mild atrophy and minimal chronic ischemic changes are present. No acute CT Head finding. Prominent cervical spine degenerative changes are present as detailed in the body of the report. No a cute findings seen. No acute injury to the chest. There is a 12 x 5 mm spiculated density in the posterior gutter on the left that has increased from 2017. This is probably progressive scarring but needs continued close fo llow-up. Malignancy is not excluded. Repeat imaging with CT in 3-6 months could be performed. The mas s is currently borderline for accurate detection on PET-CT imaging. Several borderline to mildly dilated distal small bowel loops are present without obstructing mass or specific point of transition. Correlation is needed with patient's symptoms. There is prominent dive rticulosis without diverticulitis. No acute traumatic injury to the abdomen or pelvis. Approximately 3.1 centimeter infrarenal abdominal aortic aneurysm. No acute component seen on noncont rast imaging. No significant CT Abdomen and Pelvis finding.
[2018-11-27 20:20] LABS: Protime INR 1.03
[2018-11-27 20:23] LABS: Absolute Lymphocytes (CBC) 1.4 K/uL (0.7-4.9); Basophils % 0.9 % (0-1.3); Eosinophils % 2.8 % (0-4.4); Hematocrit 36.8 % (39.6-49.0); Lymphocytes % 24.8 % (15.3-44.8); RBC Red Blood Cell Count 3.75 M/uL (4.33-5.43)
[2018-11-27 20:30] LABS: ALT/SGPT 14 U/L (12-78); AST/SGOT 22 U/L (15-37); Albumin 3.3 g/dL (3.4-5.0); Alkaline Phosphatase 114 U/L (45-117); BUN Blood Urea Nitrogen 18 mg/dL (7-18); Bicarbonate 28 mmol/L (21-32); Bilirubin Direct < 0.1 mg/dL (0-0.2); Bilirubin Total 0.2 mg/dL (0.2-1.0); Glucose Level 75 mg/dL (74-106); Magnesium 1.9 mg/dL (1.8-2.4); NT PRO-BNP 2189 pg/mL (<125); Potassium 4.9 mmol/L (3.5-5.1); Sodium Level 135 mmol/L (136-145); Troponin (Emerg Dept Use Only) < 0.02 ng/mL (0.0-0.045)
--- NOTE | 2018-11-27 20:43 | RAD REPORT ---
EXAM DESCRIPTION: RAD - Pelvis - 11/27/2018 8:16 pm CLINICAL HISTORY: Fall, pelvic and hip pain COMPARISON: None. TECHNIQUE: AP imaging of the pelvis was obtained. FINDINGS: No pelvic fracture identified. Detail is somewhat limited by osteopenia and overlying cheryl l and soft tissue content. No fracture or dislocation of either proximal femur. Patient has very dens e arterial tree calcifications. Hip joint degenerative changes are present. IMPRESSION: No fracture or acute finding.
--- NOTE | 2018-11-27 20:44 | RAD REPORT ---
EXAM DESCRIPTION: RAD - Chest Single View - 11/27/2018 8:17 pm CLINICAL HISTORY: Cough COMPARISON: December 2016 TECHNIQUE: AP portable chest image was obtained 2014 hours . FINDINGS: No acute lung parenchymal process. Scattered fibrotic lung pattern is similar to compariso n. Small granulomas noted. Heart and vasculature are normal. No measurable pleural effusion and no pn eumothorax. No acute bony abnormality seen. No acute aortic findings suspected. IMPRESSION: No acute cardiopulmonary process. Fibrotic lung pattern similar to comparison.
--- NOTE | 2018-11-27 20:44 | RAD REPORT ---
EXAM DESCRIPTION: RAD - Hip Right 2 View - 11/27/2018 8:13 pm CLINICAL HISTORY: Fall, hip pain COMPARISON: None. FINDINGS: AP and frog-leg views of the right hip were obtained. There is no fracture or dislocation . No AVN or focal femoral head abnormality. Acetabular degenerative changes minimal. Dense arterial tree calcifications are present. No significant soft tissue finding evident. IMPRESSION: Mild degenerative change with no acute finding.
--- NOTE | 2018-11-27 20:50 | RAD REPORT ---
EXAM DESCRIPTION: RAD - Hip Left 2 View - 11/27/2018 8:45 pm CLINICAL HISTORY: Fall, left hip pain COMPARISON: None. FINDINGS: AP and frogleg views of the left hip were obtained. There is no fracture or dislocation. N o AVN or focal femoral head abnormality. Mild degenerative change seen along the superior acetabular rim. No suspicious soft tissue finding identifiable. Arterial tree calcifications are present. IMPRESSION: Negative left hip examination for acute or significant findings.
--- NOTE | 2018-11-27 20:54 | ER ---
Nurse's Notes [facility] Name: Jean Pierre Martinez Age: 68 yrs Sex: Male : 1950 Arrival Date: 11/27/2018 Time: 19:10 Bed 4 Private MD: Diagnosis: Fall down embankment (hill);Pain in left hip;Pain in hip;Low back pain Presentation: 11/27 19:10 Presenting complaint: EMS states: pt reports having had a fall today at home, from a sg standing position. Denies hitting head, denies LOC, reports hitting the side table by his bed with the lower part of his back. pt states pain is worsening with standing, reports is able to walk. Transition of care: patient was not received from another setting of care. Onset of symptoms was November 27, 2018. Risk Assessment: Do you want to hurt yourself or someone else? Patient reports no desire to harm self or others. Initial Sepsis Screen: Does the patient meet any 2 criteria? No. Patient's initial sepsis screen is negative. Does the patient have a suspected source of infection? No. Patient's initial sepsis screen is negative. Care prior to arrival: None. 19:10 Method Of Arrival: EMS: [facility] 19:10 Acuity: BILL 4 sg Historical: - Allergies: 19:15 Codeine; sg - PMHx: 19:15 GERD; Hypertension; Kidney stones; Myocardial infarction; sg - PSHx: 19:15 Prostate; Lithotripsy; sg - Immunization history:: Adult Immunizations up to date. - Social history:: Smoking status: Patient/guardian denies using tobacco. - Ebola Screening: : Patient negative for fever greater than or equal to 101.5 degrees Fahrenheit, and additional compatible Ebola Virus Disease symptoms Patient denies exposure to infectious person Patient denies travel to an Ebola-affected area in the 21 days before illness onset No symptoms or risks identified at this time. - Family history:: not pertinent. Screenin:18 Abuse screen: Denies threats or abuse. Nutritional screening: No deficits noted. ea Tuberculosis screening: No symptoms or risk factors identified. Fall Risk Fall in past 12 months (25 points). Assessment: 19:05 General: Appears uncomfortable, Behavior is calm, cooperative, appropriate for age. ea Pain: Complains of pain in back. Neuro: Level of Consciousness is awake, alert, obeys commands. Cardiovascular: Patient's skin is warm and dry. Respiratory: Airway is patent Respiratory effort is even, unlabored, Respiratory pattern is regular, symmetrical. GI: No signs and/or symptoms were reported involving the gastrointestinal system. Derm: Skin is dry, Skin is pale, Skin temperature is warm. 20:00 Reassessment: Patient appears in no apparent distress at this time. Patient and/or tl2 family updated on plan of care and expected duration. Pain level reassessed. Patient is alert, oriented x 3, equal unlabored respirations, skin warm/dry/pink. PT states nausea has decreased. 21:14 Reassessment: pt became nauseated after fentanyl administration, approved zofran tl2 before discharge, see JUL. 21:16 Reassessment: Pt and family verbalized understanding of discharge instructions, need tl2 for follow up and prescription usage. Vital Signs: 19:15 BP 149 / 74; Pulse 56; Resp 18; Temp 97.2; Pulse Ox 100% on R/A; Pain 7/10; sg 20:26 BP 164 / 74; Pulse 57; Resp 18; Pulse Ox 100% on R/A; tl2 21:16 BP 174 / 82; Pulse 55; Resp 18; Pulse Ox 100% on R/A; Pain 5/10; tl2 ED Course: 19:10 Patient arrived in ED. dl4 19:11 Brendan Pa MD is Attending Physician. jordan 19:11 Arm band placed on. sg 19:14 Triage completed. sg 19:16 Naty Holcomb, RN is Primary Nurse. ea 19:18 Patient has correct armband on for positive identification. Bed in low position. Call ea light in reach. Side rails up X2. 19:36 Maintain EMS IV. Dressing intact. Good blood return noted. Site clean \T\ dry. Gauge \T\ tl 2 site: 20 g R wrist. 19:38 EKG done, by sterile preparation technician. reviewed by Brendan Pa MD. tl2 19:51 CT completed. Patient tolerated procedure well. Patient moved to CT. Patient moved back nj from CT. 19:52 Head C Spine Cap Wo Con In Process Unspecified. EDMS 20:13 Chest Single View In Process Unspecified. EDMS 20:13 Pelvis In Process Unspecified. EDMS 20:14 Hip Right 2 View In Process Unspecified. EDMS 20:46 Hip Left 2 View XRAY In Process Unspecified. EDMS 21:16 No provider procedures requiring assistance completed. IV discontinued, intact, tl2 bleeding controlled, No redness/swelling at site. Pressure dressing applied. Administered Medications: 19:35 Drug: NS 0.9% 1000 ml Route: IV; Rate: 125 ml/hr; Site: right wrist; tl2 21:17 Follow up: IV Status: pt discharged; IV Intake: 200ml tl2 19:35 Drug: fentaNYL (PF) 25 mcg Route: IVP; Site: right wrist; tl2 20:00 Follow up: Response: No adverse reaction; Pain is decreased tl2 19:36 Drug: Zofran 4 mg Route: IVP; Site: right wrist; tl2 20:00 Follow up: Response: No adverse reaction; Nausea is decreased; Vomiting decreased tl2 21:14 Drug: fentaNYL (PF) 25 mcg Route: IVP; Site: right wrist; tl2 21:17 Follow up: Response: No adverse reaction; Medication administered at discharge. tl2 21:14 Drug: Zofran 4 mg Route: IVP; Site: right wrist; tl2 21:17 Follow up: Response: No adverse reaction; Medication administered at discharge. tl2 Intake: 21:17 IV: 200ml; Total: 200ml. tl2 Outcome: 20:53 Discharge ordered by . jordan 21:16 Discharged to home via wheelchair, with family. tl2 21:16 Condition: stable 21:16 Discharge instructions given to patient, family, Instructed on discharge instructions, follow up and referral plans. medication usage, Demonstrated understanding of instructions, follow-up care, medications, Prescriptions given X 1. 21:25 Patient left the ED. tl2 Signatures: Dispatcher [employer] EDMS Santy Mahoney RN RN sg Anderson, Corey, MD MD cha Knox, Taylor RN TERESE tl2 Tobias Grove Elena, RN RN ea Luna, David dl4
--- NOTE | 2018-11-27 20:54 | EDPHYS ---
Physician Documentation [facility] Name: Jean Pierre Martinez Age: 68 yrs Sex: Male : 1950 Arrival Date: 11/27/2018 Time: 19:10 Bed 4 Private MD: ED Physician Brendan Pa HPI: 11/27 19:23 This 68 yrs old Male presents to ER via EMS with complaints of Fall Injury. jordan 19:23 Details of fall: The patient fell from an upright position, while standing. Onset: The jordan symptoms/episode began/occurred just prior to arrival. Associated injuries: The patient sustained right hip, decreased range of motion, painful injury, lumbar area, decreased range of motion. Severity of symptoms: At their worst the symptoms were mild, moderate, in the emergency department the symptoms are unchanged. The patient has not experienced similar symptoms in the past. Historical: - Allergies: 19:15 Codeine; sg - PMHx: 19:15 GERD; Hypertension; Kidney stones; Myocardial infarction; sg - PSHx: 19:15 Prostate; Lithotripsy; sg - Immunization history:: Adult Immunizations up to date. - Social history:: Smoking status: Patient/guardian denies using tobacco. - Ebola Screening: : Patient negative for fever greater than or equal to 101.5 degrees Fahrenheit, and additional compatible Ebola Virus Disease symptoms Patient denies exposure to infectious person Patient denies travel to an Ebola-affected area in the 21 days before illness onset No symptoms or risks identified at this time. - Family history:: not pertinent. ROS: 19:23 Constitutional: Negative for fever, chills, and weight loss, Eyes: Negative for injury, jordan pain, redness, and discharge, ENT: Negative for injury, pain, and discharge, Neck: Negative for injury, pain, and swelling, Cardiovascular: Negative for chest pain, palpitations, and edema, Respiratory: Negative for shortness of breath, cough, wheezing, and pleuritic chest pain, Abdomen/GI: Negative for abdominal pain, nausea, vomiting, diarrhea, and constipation, : Negative for injury, bleeding, discharge, and swelling, Neuro: Negative for headache, weakness, numbness, tingling, and seizure, Psych: Negative for depression, anxiety, suicide ideation, homicidal ideation, and hallucinations, Allergy/Immunology: Negative for hives, rash, and allergies, Endocrine: Negative for neck swelling, polydipsia, polyuria, polyphagia, and marked weight changes, Hematologic/Lymphatic: Negative for swollen nodes, abnormal bleeding, and unusual bruising. 19:23 Back: Positive for decreased range of motion, pain at rest, pain with movement. Exam: 19:23 Constitutional: This is a well developed, well nourished patient who is awake, alert, jordan and in no acute distress. Head/Face: Normocephalic, atraumatic. Eyes: Pupils equal round and reactive to light, extra-ocular motions intact. Lids and lashes normal. Conjunctiva and sclera are non-icteric and not injected. Cornea within normal limits. Periorbital areas with no swelling, redness, or edema. ENT: Nares patent. No nasal discharge, no septal abnormalities noted. Tympanic membranes are normal and external auditory canals are clear. Oropharynx with no redness, swelling, or masses, exudates, or evidence of obstruction, uvula midline. Mucous membranes moist. Neck: Trachea midline, no thyromegaly or masses palpated, and no cervical lymphadenopathy. Supple, full range of motion without nuchal rigidity, or vertebral point tenderness. No Meningismus. Chest/axilla: Normal chest wall appearance and motion. Nontender with no deformity. No lesions are appreciated. Cardiovascular: Regular rate and rhythm with a normal S1 and S2. No gallops, murmurs, or rubs. Normal PMI, no JVD. No pulse deficits. Respiratory: Lungs have equal breath sounds bilaterally, clear to auscultation and percussion. No rales, rhonchi or wheezes noted. No increased work of breathing, no retractions or nasal flaring. Abdomen/GI: Soft, non-tender, with normal bowel sounds. No distension or tympany. No guarding or rebound. No evidence of tenderness throughout. Male : Normal genitalia with no discharge or lesions. Skin: Warm, dry with normal turgor. Normal color with no rashes, no lesions, and no evidence of cellulitis. Neuro: Awake and alert, GCS 15, oriented to person, place, time, and situation. Cranial nerves II-XII grossly intact. Motor strength 5/5 in all extremities. Sensory grossly intact. Cerebellar exam normal. Normal gait. Psych: Awake, alert, with orientation to person, place and time. Behavior, mood, and affect are within normal limits. 19:23 Back: pain, that is mild, that is moderate, ROM is normal, normal spinal alignment noted, CVA tenderness, is absent, vertebral tenderness, is not appreciated. Vital Signs: 19:15 BP 149 / 74; Pulse 56; Resp 18; Temp 97.2; Pulse Ox 100% on R/A; Pain 7/10; sg 20:26 BP 164 / 74; Pulse 57; Resp 18; Pulse Ox 100% on R/A; tl2 21:16 BP 174 / 82; Pulse 55; Resp 18; Pulse Ox 100% on R/A; Pain 5/10; tl2 MDM: 19:11 Patient medically screened. [facility] 19:23 Data reviewed: vital signs, nurses notes, lab test result(s), EKG, radiologic studies, [facility] CT scan, plain films. 11/27 19:22 Order name: Basic Metabolic Panel; Complete Time: 20:51 [facility] 11/27 19:22 Order name: CBC with Diff; Complete Time: 20:27 [facility] 11/27 19:22 Order name: LFT's; Complete Time: 20:51 [facility] 11/27 19:22 Order name: Magnesium; Complete Time: 20:51 [facility] 11/27 19:22 Order name: NT PRO-BNP; Complete Time: 20:51 [facility] 11/27 19:22 Order name: PT-INR; Complete Time: 20:51 [facility] 11/27 19:22 Order name: Troponin (emerg Dept Use Only); Complete Time: 20:51 [facility] 11/27 19:22 Order name: XRAY Chest (1 view) [facility] 11/27 19:22 Order name: Pelvis XRAY [facility] 11/27 19:22 Order name: Hip Right 2 View XRAY [facility] 11/27 19:22 Order name: CT Traumagram (Head C Spine CAP wo con) [facility] 11/27 19:25 Order name: Chest Single View; Complete Time: 20:51 [facility] 11/27 19:25 Order name: Pelvis; Complete Time: 20:51 [facility] 11/27 19:25 Order name: Hip Right 2 View; Complete Time: 20:51 [facility] 11/27 19:22 Order name: EKG; Complete Time: 19:24 [facility] 11/27 19:22 Order name: Cardiac monitoring; Complete Time: 19:36 [facility] 11/27 19:22 Order name: EKG - Nurse/Tech; Complete Time: 19:36 [facility] 11/27 19:22 Order name: IV Saline Lock; Complete Time: 19:36 [facility] 11/27 19:22 Order name: Labs collected and sent; Complete Time: 19:36 [facility] 11/27 19:22 Order name: O2 Per Protocol; Complete Time: 19:36 [facility] 11/27 19:22 Order name: O2 Sat Monitoring; Complete Time: 19:36 [facility] 11/27 19:25 Order name: EKG Electrocardiogram [facility] 11/27 19:26 Order name: Head C Spine Cap Wo Con; Complete Time: 20:27 [facility] 11/27 20:26 Order name: Hip Left 2 View XRAY; Complete Time: 20:54 [facility] Administered Medications: 19:35 Drug: NS 0.9% 1000 ml Route: IV; Rate: 125 ml/hr; Site: right wrist; tl2 21:17 Follow up: IV Status: pt discharged; IV Intake: 200ml tl2 19:35 Drug: fentaNYL (PF) 25 mcg Route: IVP; Site: right wrist; tl2 20:00 Follow up: Response: No adverse reaction; Pain is decreased tl2 19:36 Drug: Zofran 4 mg Route: IVP; Site: right wrist; tl2 20:00 Follow up: Response: No adverse reaction; Nausea is decreased; Vomiting decreased tl2 21:14 Drug: fentaNYL (PF) 25 mcg Route: IVP; Site: right wrist; tl2 21:17 Follow up: Response: No adverse reaction; Medication administered at discharge. tl2 21:14 Drug: Zofran 4 mg Route: IVP; Site: right wrist; tl2 21:17 Follow up: Response: No adverse reaction; Medication administered at discharge. tl2 Disposition: 11/27/18 20:53 Discharged to Home. Impression: Fall down embankment (hill), Pain in left hip, Pain in hip, Low back pain. - Condition is Stable. - Discharge Instructions: Joint Pain, Arthritis, Fall Prevention in the Home, Musculoskeletal Pain, Fall Prevention in the Home, [id number], Hip Pain, Arthritis, [id number], Joint Pain, Gqdv-[id number]. - Prescriptions for Tramadol 50 mg Oral Tablet - take 1 tablet by ORAL route every 8 hours as needed; 30 tablet. - Medication Reconciliation Form, Thank You Letter, Antibiotic Education, Prescription Opioid Use form. - Follow up: Private Physician; When: 2 - 3 days; Reason: Recheck today's complaints, Continuance of care, Re-evaluation by your physician. - Problem is new. - Symptoms have improved. Signatures: Dispatcher [employer] EDSanty Watson RN RN Brendan Davis MD MD cha Knox, Taylor, RN RN tl2 Corrections: (The following items were deleted from the chart) 21:25 20:53 11/27/2018 20:53 Discharged to Home. Impression: Fall down embankment (hill); tl2 Pain in left hip; Pain in hip; Low back pain. Condition is Stable. Discharge Instructions: Joint Pain, Arthritis, Musculoskeletal Pain, Hip Pain, Arthritis, Pzyh-[id number], Joint Pain, Socr-cb-[id number]. Prescriptions for Tramadol 50 mg Oral Tablet - take 1 tablet by ORAL route every 8 hours as needed; 30 tablet. and Forms are Medication Reconciliation Form, Thank You Letter, Antibiotic Education, Prescription Opioid Use. Follow up: Private Physician; When: 2 - 3 days; Reason: Recheck today's complaints, Continuance of care, Re-evaluation by your physician. Problem is new. Symptoms have improved. jordan
[2018-11-27 22:00] VITALS: TEMP 97.2; O2SAT 100
[2018-11-27 22:04] VITALS: BP 174/82
--- NOTE | 2018-11-28 11:09 | EKG ---
Test Date: 2018-11-27 Test Time: 19:33:47 Evaporator Supervisor: PEYMAN MEASUREMENT RESULTS: Intervals: Rate: 59 [place]: 192 QRSD: 102 QT: 470 QTc: 465 [place]: P: 83 [place]: 192 QRS: 66 T: 48 INTERPRETIVE STATEMENTS: Sinus bradycardia Anterior infarct, age undetermined Abnormal ECG Compared to ECG 12/21/2016 20:52:57 Myocardial infarct finding now present Electronically Signed On 11-28-18 11:08:00 CDT by Wilbert Zamorano
== END 2018-11-27 21:25 | disposition home or self-care (01) ==
LOC: ER 19:04
DX: M25.552 Pain in left hip (principal); M25.551 Pain in right hip; M54.5 Low back pain; W17.81XA Fall down embankment (hill), initial encounter; Y93.01 Activity, walking, marching and hiking; Y92.9 Unspecified place or not applicable; I10 Essential (primary) hypertension; Z88.5 Allergy status to narcotic agent
CPT/HCPCS: 96361; 93005; 85025; 80048; 36415; 83735; 85610; 80076; 84484; 83880; 70450; 71250; 72125; 71045; 72170; 73502 ×2; 96375; 96374; 99284; J3010; J7030; J2405 ×2

== ENCOUNTER 2019-02-14 11:01 | Inpatient (IN) | payer OTHER ==
[2019-02-14] MEDS ORDERED: ONDANSETRON 4 MG/2 ML VIAL ONE (11:26)
[2019-02-14] MEDS ORDERED: FENTANYL CITR 100 MCG/2 ML ONE ×2 (11:26→13:04)
[2019-02-14 11:38] LABS: Absolute Lymphocytes (CBC) 0.8 K/uL (0.7-4.9); Basophils % 0.9 % (0-1.3); Hematocrit 30.1 % (39.6-49.0); Lymphocytes % 21.4 % (15.3-44.8); MPV 7.3 fL (7.6-11.3)
[2019-02-14 11:42] LABS: Protime INR 1.04
[2019-02-14 11:54] LABS: ALT/SGPT 13 U/L (12-78); AST/SGOT 17 U/L (15-37); Albumin 3.5 g/dL (3.4-5.0); Alkaline Phosphatase 92 U/L (45-117); BUN Blood Urea Nitrogen 17 mg/dL (7-18); Bicarbonate 27 mmol/L (21-32); Bilirubin Direct 0.1 mg/dL (0-0.2); Bilirubin Total 0.2 mg/dL (0.2-1.0); Glucose Level 89 mg/dL (74-106); Protein, Total 6.5 g/dL (6.4-8.2); Sodium Level 125 mmol/L (136-145)
[2019-02-14 11:55] LABS: Magnesium 1.7 mg/dL (1.8-2.4); NT PRO-BNP 2154 pg/mL (<125); Troponin (Emerg Dept Use Only) < 0.02 ng/mL (0.0-0.045)
--- NOTE | 2019-02-14 12:06 | RAD REPORT ---
EXAM DESCRIPTION: RAD - Chest Single View - 02/14/2019 11:57 am CLINICAL HISTORY: pre op Chest pain. COMPARISON: Chest Single View dated 11/27/2018; Chest Single View dated 12/21/2016; Abdomen 1 View (KUB ) dated 08/11/2016; Abdomen 1 View (KUB) dated 07/13/2016 FINDINGS: Portable technique limits examination quality. The lungs are emphysematous but grossly clear. The heart is upper limit normal in size. No displaced fractures.Aortic atherosclerosis. IMPRESSION: No acute intrathoracic process suspected. Mild COPD.
--- NOTE | 2019-02-14 12:10 | RAD REPORT ---
EXAM DESCRIPTION: RAD - Hip Right 2 View - 02/14/2019 11:57 am CLINICAL HISTORY: fall;Pain COMPARISON: Hip Right 2 View dated 11/27/2018 FINDINGS: Nondisplaced right IT fracture is seen. The bones are demineralized
[2019-02-14] MEDS ORDERED: MAGNESIUM SULFATE 1 gm IVPB 1 GM/100 ML BAG IV ONE (12:23)
[2019-02-14] MEDS ORDERED: NA CHLORIDE 0.9% 1,000 ML ONE (12:23)
--- NOTE | 2019-02-14 12:59 | ER ---
Nurse's Notes [facility] Name: Jean Pierre Martinez Age: 68 yrs Sex: Male : 1950 Arrival Date: 02/14/2019 Time: 11:03 Bed 5 Private MD: Diagnosis: Intertrochanteric fracture of femur Presentation: 02/14 11:06 Presenting complaint: Patient states: R hip/ leg pain from "hip all the way down to the ss toes" that began after falling in the kitchen about 45 minutes ago. Transition of care: patient was not received from another setting of care. Onset of symptoms was February 14, 2019. Risk Assessment: Do you want to hurt yourself or someone else? Patient reports no desire to harm self or others. Initial Sepsis Screen: Does the patient meet any 2 criteria? No. Patient's initial sepsis screen is negative. Does the patient have a suspected source of infection? No. Patient's initial sepsis screen is negative. Care prior to arrival: None. 11:06 Method Of Arrival: EMS: [facility] 11:06 Acuity: BILL 3 11:06 Mechanism of Injury: Fall from standing position. Trauma event details: Injury occurred ss in the [facility], Injury occurred: Injury occurred: February 14, 2019. Trauma Activation: Alert Physician: ED Physician; Name: ; Notified At: ; Arrived At: Physician: General Surgeon; Name: ; Notified At: ; Arrived At: Physician: Radiology; Name: ; Notified At: ; Arrived At: Physician: Respiratory; Name: ; Notified At: ; Arrived At: Physician: Lab; Name: ; Notified At: ; Arrived At: Historical: - Allergies: 11:08 Codeine; ss - PMHx: 11:08 GERD; Hypertension; Kidney stones; Myocardial infarction; ss - PSHx: 11:08 Prostate; Lithotripsy; ss - Immunization history:: Adult Immunizations up to date. - Social history:: Smoking status: Patient/guardian denies using tobacco. - Immunization history: Last tetanus immunization: unknown. - Ebola Screening: : Patient denies exposure to infectious person Patient denies travel to an Ebola-affected area in the 21 days before illness onset. Screenin:08 Abuse screen: Denies threats or abuse. Denies injuries from another. Tuberculosis ss screening: Never had TB. Fall risk At risk due to immobility, prior history of falls. Primary Survey: 11:08 NO uncontrolled hemorrhage observed. A: The patient is alert. Airway: patent, No ss supplemental oxygen in use on arrival. Oral cavity: clear, Trachea midline. Breathing/Chest: Respiratory pattern: regular, Respiratory effort: spontaneous, unlabored, Breath sounds: clear, bilaterally. Chest inspection: symmetrical rise and fall of the chest. Circulation: Pulses: palpable right radial artery, right posterior tibial artery, left radial artery and left posterior tibial artery. Skin color: pink, Skin temperature: warm. Disability Alert. Exposure/Environment: All clothing and personal items were removed. Forensic evidence collection is not deemed to be indicated at this time. Items placed in patient belonging bag. There is no evidence of uncontrolled external bleeding. Obvious injury(ies) are noted at this time: Patient c/o pain to R hip/ leg A warming method has been applied: A warm blanket has been provided to the patient. 12:08 Reassessment Airway Airway Patent Oxygen Non-rebreather Oral cavity Clear Trachea ss Midline Breathing/Chest Respiratory pattern Regular Respiratory effort Spontaneous Unlabored Breath sounds Clear Chest inspection Symmetrical Disability Alert. Secondary Survey: 11:08 HEENT: No deficits noted. Nose: clear. : No deficits noted. Musculoskeletal: ss Circulation, motion, and sensation intact. Range of motion: limited in right hip Swelling absent. Assessment: 11:06 General: Appears uncomfortable, Behavior is calm, cooperative, Denies fever, feeling ss ill, fatigue, chills. Pain: Complains of pain in right hip, R leg Pain currently is 9 out of 10 on a pain scale. Quality of pain is described as aching, throbbing, Pain began 1 hour ago. Is continuous, Aggravated by increased activity, repositioning. Neuro: Level of Consciousness is awake, alert, obeys commands, Oriented to person, place, time, situation, Wood Mechanist are equal bilaterally Pupils are PERRLA, Reports intermittent dizziness. "I'm taking medicine for dizziness, but I've been falling more.". EENT: Nares are clear Oral mucosa is moist. Throat is clear. Cardiovascular: Capillary refill < 3 seconds is brisk in bilateral fingers. Respiratory: Airway is patent Respiratory effort is even, unlabored, Respiratory pattern is regular, symmetrical. GI: Patient currently denies nausea, vomiting. : No signs and/or symptoms were reported regarding the genitourinary system. Derm: Skin is intact, is healthy with good turgor, Skin is dry, Skin is pink, warm \\T\\ dry. normal. Musculoskeletal: Circulation, motion, and sensation intact. Range of motion: limited in right hip Swelling absent. 12:50 Reassessment: Patient appears in no apparent distress at this time. Patient and/or ss family updated on plan of care and expected duration. Pain level reassessed. Patient is alert, oriented x 3, equal unlabored respirations, skin warm/dry/pink. MARCELLE Diaz at bedside updating patient and family on plan of care. 13:34 Reassessment: report given to TERESE PRICE. Vital Signs: 11:06 BP 148 / 65; Pulse 60; Resp 18; Temp 97.5(O); Pulse Ox 100% on R/A; Weight 57.61 kg; ss Height 5 ft. 9 in. (175.26 cm); Pain 9/10; 12:08 BP 151 / 71; Pulse 59; Resp 18; Pulse Ox 96% on R/A; Pain 7/10; ss 11:06 Body Mass Index 18.75 (57.61 kg, 175.26 cm) Jaxon Coma Score: 11:08 Eye Response: spontaneous(4). Verbal Response: oriented(5). Motor Response: obeys commands(6). Total: 15. Trauma Score (Adult): 11:08 Eye Response: spontaneous(1); Verbal Response: oriented(1); Motor Response: obeys commands(2); Systolic BP: > 89 mm Hg(4); Respiratory Rate: 10 to 29 per min(4); Jaxon Score: 15; Trauma Score: 12 ED Course: 11:03 Patient arrived in ED. ss 11:05 Christen Garcia, TERESE is Primary Nurse. ss 11:06 Arm band placed on right wrist. ss 11:07 Triage completed. ss 11:08 Patient has correct armband on for positive identification. Bed in low position. Call ss light in reach. Side rails up X2. Patient maintains SpO2 saturation greater than 95% on room air. bag making machine operator on. Pulse ox on. NIBP on. 11:08 Maintain EMS IV. Dressing intact. Good blood return noted. Site clean \\T\\ dry. Gauge \\T\\ ss site: 20 gauge in R AC. IV is patent, with good blood return, Flushed right antecubital with 5 ml normal saline. Patient maintains SpO2 saturation greater than 95% on room air. Thermoregulation: warm blanket given to patient. 11:10 Jonnathan Weeks PA is PHCP. jr8 11:10 Brian Gunter MD is Attending Physician. jr8 11:56 EKG done, by warehouse technician. reviewed by Jonnathan IBANEZ. at1 11:57 XRAY Chest (1 view) In Process Unspecified. EDMS 11:57 XRAY Hip RIGHT 2 view In Process Unspecified. EDMS 12:57 Alecia Billy MD is Hospitalizing Provider. jr8 13:33 No provider procedures requiring assistance completed. Patient admitted, IV remains in ss place. Administered Medications: 11:28 Drug: Zofran 4 mg Route: IVP; Site: right antecubital; ss 11:56 Follow up: Response: No adverse reaction ss 11:30 Drug: fentaNYL (PF) 50 mcg Route: IVP; Site: right antecubital; ss 11:56 Follow up: Response: No adverse reaction; Pain is decreased ss 12:31 Drug: NS 0.9% 1000 ml Route: IV; Rate: 1000 ml; Site: right antecubital; ss 13:34 Follow up: IV Status: Infusion continued upon admission ss 12:32 Drug: Magnesium Sulfate 1 grams Route: IVPB; Infused Over: 1 hrs; Site: right ss antecubital; 13:36 Follow up: IV Status: Completed infusion ss 13:20 Drug: fentaNYL (PF) 50 mcg Route: IVP; Site: right antecubital; ss 13:36 Follow up: Response: No adverse reaction; Pain is decreased; Pain is decreased RASS 0 ss Intake: 13:34 PO: 0ml; Total: 0ml. ss Output: 13:34 Urine: 0ml; Total: 0ml. ss Outcome: 12:59 Decision to Hospitalize by Provider. jr8 13:33 Condition: good ss 13:33 Instructed on the need for admit. 13:33 Patient's length of stay in the Emergency Department was greater than 2 hours. Patient ss admittedPatient's length of stay extended due to 13:39 Admitted to Tele accompanied by tech, via stretcher, room 204, with chart, Report ss called to TERESE PRICE 13:40 Patient left the ED. ss Signatures: Dispatcher [employer] Christen Blanchard RN RN Jonnathan Contreras PA PA jr8 Merline Martínez, dry mill operator EKG Tat1
--- NOTE | 2019-02-14 12:59 | EDPHYS ---
Physician Documentation [facility] Name: Jean Pierre Martinez Age: 68 yrs Sex: Male : 1950 Arrival Date: 02/14/2019 Time: 11:03 Bed 5 Private MD: ED Physician Brian Gunter HPI: 02/14 11:15 This 68 yrs old Male presents to ER via EMS with complaints of fall. jr8 11:15 Details of fall: The patient fell from an upright position, while standing. Onset: The jr8 symptoms/episode began/occurred acutely, today. Associated injuries: The patient sustained right leg. Severity of symptoms: At their worst the symptoms were moderate, in the emergency department the symptoms are unchanged. The patient has not experienced similar symptoms in the past. The patient has not recently seen a physician. Patient stated that he fell backwards landing on right side. [place] crack in hip. Pain with decreased ROM since incident. Unable to ambulate. Unknown if he got dizzy or not . Historical: - Allergies: 11:08 Codeine; ss - PMHx: 11:08 GERD; Hypertension; Kidney stones; Myocardial infarction; ss - PSHx: 11:08 Prostate; Lithotripsy; ss - Immunization history:: Adult Immunizations up to date. - Social history:: Smoking status: Patient/guardian denies using tobacco. - Immunization history: Last tetanus immunization: unknown. - Ebola Screening: : Patient denies exposure to infectious person Patient denies travel to an Ebola-affected area in the 21 days before illness onset. ROS: 11:15 Eyes: Negative for injury, pain, redness, and discharge, ENT: Negative for injury, jr8 pain, and discharge, Neck: Negative for injury, pain, and swelling, Cardiovascular: Negative for chest pain, palpitations, and edema, Respiratory: Negative for shortness of breath, cough, wheezing, and pleuritic chest pain, Abdomen/GI: Negative for abdominal pain, nausea, vomiting, diarrhea, and constipation, Back: Negative for injury and pain, Skin: Negative for injury, rash, and discoloration, Neuro: Negative for headache, weakness, numbness, tingling, and seizure. 11:15 MS/extremity: Positive for pain, tenderness, of the right leg. Exam: 11:15 Eyes: Pupils equal round and reactive to light, extra-ocular motions intact. Lids and jr8 lashes normal. Conjunctiva and sclera are non-icteric and not injected. Cornea within normal limits. Periorbital areas with no swelling, redness, or edema. ENT: Nares patent. No nasal discharge, no septal abnormalities noted. Tympanic membranes are normal and external auditory canals are clear. Oropharynx with no redness, swelling, or masses, exudates, or evidence of obstruction, uvula midline. Mucous membranes moist. Neck: Trachea midline, no thyromegaly or masses palpated, and no cervical lymphadenopathy. Supple, full range of motion without nuchal rigidity, or vertebral point tenderness. No Meningismus. Cardiovascular: Regular rate and rhythm with a normal S1 and S2. No gallops, murmurs, or rubs. Normal PMI, no JVD. No pulse deficits. Respiratory: Lungs have equal breath sounds bilaterally, clear to auscultation and percussion. No rales, rhonchi or wheezes noted. No increased work of breathing, no retractions or nasal flaring. Abdomen/GI: Soft, non-tender, with normal bowel sounds. No distension or tympany. No guarding or rebound. No evidence of tenderness throughout. Back: No spinal tenderness. No costovertebral tenderness. Full range of motion. Skin: Warm, dry with normal turgor. Normal color with no rashes, no lesions, and no evidence of cellulitis. Neuro: Awake and alert, GCS 15, oriented to person, place, time, and situation. Cranial nerves II-XII grossly intact. Motor strength 5/5 in all extremities. Sensory grossly intact. Cerebellar exam normal. Normal gait. 11:15 Musculoskeletal/extremity: Extremities: grossly normal except: noted in the right leg: pain, tenderness, later hip near greater trochanter , ROM: limited active range of motion, in the right leg, limited passive range of motion, in the right leg, Circulation is intact in all extremities. Sensation intact. Vital Signs: 11:06 BP 148 / 65; Pulse 60; Resp 18; Temp 97.5(O); Pulse Ox 100% on R/A; Weight 57.61 kg; ss Height 5 ft. 9 in. (175.26 cm); Pain 9/10; 12:08 BP 151 / 71; Pulse 59; Resp 18; Pulse Ox 96% on R/A; Pain 7/10; ss 11:06 Body Mass Index 18.75 (57.61 kg, 175.26 cm) ss [place] Coma Score: 11:08 Eye Response: spontaneous(4). Verbal Response: oriented(5). Motor Response: obeys ss commands(6). Total: 15. Trauma Score (Adult): 11:08 Eye Response: spontaneous(1); Verbal Response: oriented(1); Motor Response: obeys ss commands(2); Systolic BP: > 89 mm Hg(4); Respiratory Rate: 10 to 29 per min(4); [place] Score: 15; Trauma Score: 12 MDM: 11:10 Patient medically screened. jr8 12:55 Data reviewed: vital signs, nurses notes, lab test result(s), EKG, radiologic studies, jr8 plain films. Data interpreted: Pulse oximetry: on room air is 96 %. Interpretation: normal. Counseling: I had a detailed discussion with the patient and/or guardian regarding: the historical points, exam findings, and any diagnostic results supporting the discharge/admit diagnosis, lab results, radiology results, the need for further work-up and treatment in the hospital. ED course: Consulted Dr. Armstrong and will see patient . 02/14 11:13 Order name: Basic Metabolic Panel; Complete Time: 11:57 8 02/14 11:13 Order name: CBC with Diff; Complete Time: 11:46 8 02/14 11:13 Order name: LFT's; Complete Time: 11:57 8 02/14 11:13 Order name: Magnesium; Complete Time: 11:57 8 02/14 11:13 Order name: NT PRO-BNP; Complete Time: 11:57 8 02/14 11:13 Order name: PT-INR; Complete Time: 11:46 8 02/14 11:13 Order name: XRAY Chest (1 view); Complete Time: 12:42 jr8 02/14 11:13 Order name: XRAY Hip RIGHT 2 view; Complete Time: 12:42 jr8 02/14 11:13 Order name: Troponin (emerg Dept Use Only); Complete Time: 11:57 8 02/14 11:19 Order name: TS; Complete Time: 12:42 8 02/14 11:13 Order name: EKG; Complete Time: 11:15 8 02/14 11:13 Order name: Cardiac monitoring; Complete Time: :8 02/14 11:13 Order name: EKG - Nurse/Tech; Complete Time: 11:56 02/14 11:13 Order name: IV Saline Lock; Complete Time: 8 02/14 11:13 Order name: Labs collected and sent; Complete Time: 8 02/14 11:13 Order name: O2 Per Protocol; Complete Time: 02/14 11:13 Order name: O2 Sat Monitoring; Complete Time: Administered Medications: 11:28 Drug: Zofran 4 mg Route: IVP; Site: right antecubital; ss 11:56 Follow up: Response: No adverse reaction ss 11:30 Drug: fentaNYL (PF) 50 mcg Route: IVP; Site: right antecubital; ss 11:56 Follow up: Response: No adverse reaction; Pain is decreased ss 12:31 Drug: NS 0.9% 1000 ml Route: IV; Rate: 1000 ml; Site: right antecubital; ss 13:34 Follow up: IV Status: Infusion continued upon admission ss 12:32 Drug: Magnesium Sulfate 1 grams Route: IVPB; Infused Over: 1 hrs; Site: right ss antecubital; 13:36 Follow up: IV Status: Completed infusion ss 13:20 Drug: fentaNYL (PF) 50 mcg Route: IVP; Site: right antecubital; ss 13:36 Follow up: Response: No adverse reaction; Pain is decreased; Pain is decreased RASS 0 ss Disposition: 14:41 Co-signature as Attending Physician, Brian Gunter MD. rn Disposition: 02/14/19 12:59 Hospitalization ordered by Alecia Billy for Inpatient Admission. Preliminary diagnosis is Intertrochanteric fracture of femur. - Bed requested for Telemetry/MedSurg (Inpatient). - Status is Inpatient Admission. ss - Condition is Stable. - Problem is new. - Symptoms have improved. UTI on Admission? No Signatures: Dispatcher [employer] Vane Anguiano RN RN dw Nieto, Roman, MD MD rn Smirch, Shelby, RN RN Jonnathan Weeks PA PA jr8 Corrections: (The following items were deleted from the chart) 13:26 12:59 Hospitalization Ordered by Alecia Billy MD for Inpatient Admission. Preliminary dw diagnosis is Intertrochanteric fracture of femur. Bed requested for Telemetry/MedSurg (Inpatient). Status is Inpatient Admission. Condition is Stable. Problem is new. Symptoms have improved. UTI on Admission? No. jr8 13:40 13:26 02/14/2019 12:59 Hospitalization Ordered by Alecia Billy MD for Inpatient ss Admission. Preliminary diagnosis is Intertrochanteric fracture of femur. Bed requested for Telemetry/MedSurg (Inpatient). Status is Inpatient Admission. Condition is Stable. Problem is new. Symptoms have improved. UTI on Admission? No. dw
[2019-02-14 14:35] VITALS: BMI 18.7
[2019-02-14] MEDS: NA CHLORIDE 0.9% 1,000 ML IV SCH ×2 (14:37→20:09)
[2019-02-14] MEDS: MORPHINE 2 MG/ML SYR IV PRN ×3 (16:31→23:27)
--- NOTE | 2019-02-14 16:39 | P.HP ---
Certification for Inpatient Patient admitted to: Inpatient With expected LOS: >2 Midnights Practitioner: I am a practitioner with admitting privileges, knowledge of patient current condition, hospital course, and medical plan of care. Services: Services provided to patient in accordance with Admission requirements found in Title 42 Section 412.3 of the Code of Federal Regulations Patient History Date of Service: 02/14/19 Reason for admission: Fall/fracture History of Present Illness: This is a 68-year-old male past medical history of hypertension, bypass in April 2018, CAD who presented after a mechanical fall. Per patient, he had a fall today when he was walking out of the house. He thinks he lost his balance and fell. He did not hit his head but it is right-sided for the hip. He denies any dizziness, chest pain, shortness of breath, headache, vision changes, speech changes prior to the fall. He does state that he has had some falls recently, along with dizziness. He is on meclizine for the dizziness. But he did not have any dizziness or chest pain prior to this fall. Because of the unbearable pain, he was brought to the emergency room. In the ER, blood pressure was 148/65, heart rate of 60, respirations of 18, afebrile at 97.5 and satting 100% on room air. BMI of 18.75. Labs remarkable for sodium low at 125. Hip x-ray was done, which showed right intertrochanteric fracture. Chest x-ray without any acute abnormalities. In the ER, he received Zofran, IV fluids and fentanyl. At the time of my exam, patient was in moderate amount distress due to pain, hemodynamically stable, alert oriented x3. Allergies codeine [Codeine] Allergy (Verified 06/14/16 09:15) Nausea/Vomiting Home medications list reviewed: Yes Home Medications: Gabapentin 300 mg PO TID 03/26/12 Oxcarbazepine 600 mg PO TID 03/26/12 Tramadol HCl [Tramadol HCl ER] 300 mg PO DAILY 03/26/12 Hydrocodone Bit/Acetaminophen [Hydrocodon-Acetaminophen 5-325] 1 each PO Q6HP PRN #40 tablet 06/04/12 Meclizine HCl [Motion Relief] 25 mg PO BID PRN 01/13/15 Metoprolol Tartrate [Lopressor*] 50 mg PO DAILY 02/14/19 Pantoprazole [Protonix Tab] 40 mg PO DAILY 02/14/19 - Past Medical/Surgical History Has patient received pneumonia vaccine in the past: No Diabetic: No - Social History Smoking Status: Former smoker Alcohol use: No CD- Drugs: No Caffeine use: Yes Review of Systems 10-point ROS is otherwise unremarkable Physical Examination - Physical Exam General: Alert, Oriented x3, Moderate distress HEENT: Atraumatic, PERRLA, Mucous membr. moist/pink, EOMI, Sclerae nonicteric Neck: Supple, 2+ carotid pulse no bruit, No LAD, Without JVD or thyroid abnormality Respiratory: Clear to auscultation bilaterally, Normal air movement Cardiovascular: Regular rate/rhythm, Normal S1 S2 Gastrointestinal: Normal bowel sounds, No tenderness Musculoskeletal: Tenderness Integumentary: No rashes Neurological: Normal gait, Normal speech, Normal strength at 5/5 x4 extr, Normal tone, Normal affect Lymphatics: No axilla or inguinal lymphadenopathy - Studies Laboratory Data (last 24 hrs) 02/14/19 11:18: PT 12.3, INR 1.04 02/14/19 11:18: WBC 3.8 L, Hgb 10.6 L, Hct 30.1 L, Plt Count 165 02/14/19 11:18: Sodium 125 L, Potassium 4.0, BUN 17, Creatinine 1.19, Glucose 89 , Magnesium 1.7 L, Total Bilirubin 0.2, AST 17, ALT 13, Alkaline Phosphatase 92 Assessment and Plan - Problems (Diagnosis) (1) Intertrochanteric fracture of right hip Current Visit: Yes Status: Acute Plan: -Dr. Armstrong, orthopedics consulted. Awaiting recommendations. -IV pain control -continue gentle hydration -keep NPO -he will likely need surgical intervention, pending orthopedic recommendations Qualifiers: Encounter type: initial encounter Fracture type: closed Fracture alignment: nondisplaced Qualified Code(s): S72.144A - Nondisplaced intertrochanteric fracture of right femur, initial encounter for closed fracture (2) Hypertension Current Visit: Yes Status: Chronic Plan: Stable. Will resume home medications Qualifiers: Hypertension type: essential hypertension Qualified Code(s): I10 - Essential (primary) hypertension (3) CAD (coronary artery disease) Current Visit: Yes Status: Acute Plan: Stable, Will resume home medications Qualifiers: Coronary Disease-Associated Artery/Lesion type: bypass graft [place] vs. transplanted heart: [place] heart Associated angina: without angina Qualified Code(s): I25.810 - Atherosclerosis of coronary artery bypass graft(s) without angina pectoris - Plan DVT prophylaxis: Hold chemical anticoagulation for surgery. SCDs GI prophylaxis: Protonix Diet: NPO Disposition: Admit to floor with tele. Awaiting orthopedic surgery recommendations and surgical intervention. - Advance Directives Does patient have a Living Will: No Does patient have a Durable POA for Healthcare: Yes
--- NOTE | 2019-02-14 16:51 | EKG ---
Test Date: 2019-02-14 Test Time: 11:53:31 [employer] Supplies Salesperson: BETITO MEASUREMENT RESULTS: Intervals: Rate: 53 AK: 220 QRSD: 110 QT: 470 QTc: 441 [place]: P: 74 AK: 220 QRS: 55 T: 56 INTERPRETIVE STATEMENTS: Sinus bradycardia with 1st degree AV block Nonspecific ST and T wave abnormality Abnormal ECG Compared to ECG 11/27/2018 19:33:47 First degree AV block now present ST (T wave) deviation now present Myocardial infarct finding no longer present Electronically Signed On 02-14-19 16:51:02 CDT by Dontae Looney
[2019-02-14 17:40] LABS: Urine Appearance CLEAR; Urine Bilirubin NEGATIVE (NEG); Urine Blood 2+ (NEG); Urine Color YELLOW; Urine Glucose NEGATIVE (NEG); Urine Microscopic Reflex ORDER UMIC; Urine Protein NEGATIVE (NEG); Urine Specific Gravity 1.015 (1.005-1.030)
[2019-02-14] MEDS ORDERED: HYDROCODONE/APAP 5/325 MG TAB PO PRN (18:00)
[2019-02-14 18:08] LABS: Urine Bacteria <20 /HPF (NONE SEEN); Urine RBC 20-50 /HPF (NONE SEEN)
[2019-02-14 18:09] LABS: Urine Culture Reflex Order NOT NEEDED
[2019-02-14] MEDS ORDERED: TRANEXAMIC ACID 1,000 MG in NA CHLORIDE 0.9% 50 ML IV ONE (19:56)
[2019-02-14] MEDS ORDERED: CEFAZOLIN/NS 1gm 1 GM/50 ML BAG IVPB SCH (20:00)
--- NOTE | 2019-02-14 20:04 | P.CNS ---
Date of Consult: 02/14/19 Reason for Consult: PAIN RIGHT HIP IT FRACTURE Requesting Physician: Alecia Billy Chief Complaint: Fall/fracture History of Present Illness: PATIENT FALLS FREQUENTLY AND DESCRIBES FALLING BACKWARDS AND SPINNING TO THE RIGHT TO PROTECT HIS BACK. IMMEDIATE PAIN AND INABILITY TO AMBULATE BROUGHT HIM VIA AMBULANCE TO THE ED. Allergies codeine [Codeine] Allergy (Verified 06/14/16 09:15) Nausea/Vomiting Home medications list reviewed: Yes Home Medications: Gabapentin 300 mg PO TID 03/26/12 Oxcarbazepine 600 mg PO TID 03/26/12 Tramadol HCl [Tramadol HCl ER] 300 mg PO DAILY 03/26/12 Hydrocodone Bit/Acetaminophen [Hydrocodon-Acetaminophen 5-325] 1 each PO Q6HP PRN #40 tablet 06/04/12 Meclizine HCl [Motion Relief] 25 mg PO BID PRN 01/13/15 Metoprolol Tartrate [Lopressor*] 50 mg PO DAILY 02/14/19 Pantoprazole [Protonix Tab] 40 mg PO DAILY 02/14/19 - Past Medical/Surgical History Diabetic: No -: GERD, HTN, KIDNEY STONES, SD, CAD -: PROSTATE, LITHOTRIPSY, ENDARTERECTOMY RIGHT CAROTID, MULTIPLE STENTS - Social History Smoking Status: Current every day smoker Alcohol use: No CD- Drugs: No Caffeine use: Yes Review of Systems 10-point ROS is otherwise unremarkable Physical Examination Temp Pulse Resp BP Pulse Ox 97.0 F 57 16 158/90 H 98 02/14/19 16:00 02/14/19 16:00 02/14/19 19:16 02/14/19 16:00 02/14/19 19:16 General: Alert, Oriented x3, Cooperative, Mild distress HEENT: Atraumatic, Normocephalic, PERRLA Neck: Supple Respiratory: Clear to auscultation bilaterally, Normal air movement Cardiovascular: Regular rate/rhythm Capillary refill: Brisk Gastrointestinal: Soft and benign, Non-distended Musculoskeletal: Tenderness (WITH ANY MOVEMENT PAATIENT C/O PAINFUL RIGHT HIP) Integumentary: No rashes, No breakdown, No significant lesion Neurological: Sensation intact Urinary: Duarte catheter External genitalia: Deferred Rectal: Deferred Laboratory Data (last 24 hrs) 02/14/19 11:18: PT 12.3, INR 1.04 02/14/19 11:18: WBC 3.8 L, Hgb 10.6 L, Hct 30.1 L, Plt Count 165 02/14/19 11:18: Sodium 125 L, Potassium 4.0, BUN 17, Creatinine 1.19, Glucose 89 , Magnesium 1.7 L, Total Bilirubin 0.2, AST 17, ALT 13, Alkaline Phosphatase 92 Imagings Data: PELVIS, HIP AND FEMUR FILMS SHOW NON-DISPLACED, CLOSED INTERTROCANTERIC RIGHT HIP FRACTURE. - Problems (1) Intertrochanteric fracture of right hip Onset Date: ~02/14/19 Current Visit: Yes Status: Acute Plan: NONDISPLACED IT FX RIGHT HIP AMENIABLE FOR IM NAIL FIXATION WITH SHORT NAIL. PLAN; IM NAIL FIXATION RIGHT HIP AT ~11 AM 02/15/2019 WILL WATCH HGB AND HYPONATREMIA IN MORNING LABS. Qualifiers: Encounter type: initial encounter Fracture type: closed Fracture alignment: nondisplaced Qualified Code(s): S72.144A - Nondisplaced intertrochanteric fracture of right femur, initial encounter for closed fracture
[2019-02-14] MEDS ORDERED: MECLIZINE HCL 25 MG PO PRN (22:54)
[2019-02-15] MEDS: MORPHINE 2 MG/ML SYR IV PRN ×5 (03:41→21:53)
[2019-02-15] MEDS: NA CHLORIDE 0.9% 1,000 ML IV SCH ×3 (06:17→17:01)
[2019-02-15 06:51] LABS: Albumin 3.4 g/dL (3.4-5.0); Bilirubin Total 0.5 mg/dL (0.2-1.0); Magnesium 1.7 mg/dL (1.8-2.4); Phosphorus 3.3 mg/dL (2.5-4.9); Potassium 4.8 mmol/L (3.5-5.1); Protein, Total 6.5 g/dL (6.4-8.2)
[2019-02-15 08:07] LABS: Absolute Lymphocytes (CBC) 0.6 K/uL (0.7-4.9); Basophils % 0.6 % (0-1.3); Hematocrit 30.8 % (39.6-49.0); Lymphocytes % 8.9 % (15.3-44.8); MPV 7.9 fL (7.6-11.3); RBC Red Blood Cell Count 3.19 M/uL (4.33-5.43)
[2019-02-15] MEDS: METOPROLOL TAR 25 MG TAB PO SCH ×2 (08:38→09:20)
[2019-02-15] MEDS: PANTOPRAZOLE 40MG TABLET PO SCH (08:39)
[2019-02-15] MEDS: OXcarbazepine 150 MG TAB PO SCH ×3 (08:39→20:13)
[2019-02-15] MEDS ORDERED: HOME MED 1 EA UNK (Oxcarbazepine [Oxcarbazepine] 600 MG) PO SCH (09:00)
[2019-02-15] MEDS ORDERED: MAGNESIUM SULFATE 1 gm IVPB 1 GM/100 ML BAG IV ONE (09:00)
[2019-02-15] MEDS ORDERED: Magnesium Sulfate 2gm IVPB 2 G/50 ML BAG IV ONE (09:00)
--- NOTE | 2019-02-15 10:43 | P.PN ---
Subjective Date of Service: 02/15/19 Chief Complaint: Fall/fracture Physical Examination - Vital Signs Temperature: 99.0 F Blood Pressure: 148/69 Pulse: 72 Respirations: 19 Pulse Ox (%): 96 - Studies Laboratory Data (last 24 hrs) 02/14/19 11:18: PT 12.3, INR 1.04 02/14/19 11:18: WBC 3.8 L, Hgb 10.6 L, Hct 30.1 L, Plt Count 165 02/14/19 11:18: Sodium 125 L, Potassium 4.0, BUN 17, Creatinine 1.19, Glucose 89 , Magnesium 1.7 L, Total Bilirubin 0.2, AST 17, ALT 13, Alkaline Phosphatase 92 Assessment And Plan - Current Problems (Diagnosis) (1) Intertrochanteric fracture of right hip Onset Date: ~02/14/19 Current Visit: Yes Status: Acute Plan: -Dr. Armstrong, orthopedics consulted. Recommendations appreciated. -IV pain control -continue gentle hydration -he will likely need surgical intervention, orthopedic recommendations appreciated -Cardiology consult for cardiac clearance. Qualifiers: Encounter type: initial encounter Fracture type: closed Fracture alignment: nondisplaced Qualified Code(s): S72.144A - Nondisplaced intertrochanteric fracture of right femur, initial encounter for closed fracture (2) Hypertension Current Visit: Yes Status: Chronic Plan: Stable. Will resume home medications Qualifiers: Hypertension type: essential hypertension Qualified Code(s): I10 - Essential (primary) hypertension (3) CAD (coronary artery disease) Current Visit: Yes Status: Acute Plan: Stable, Will resume home medications Qualifiers: Coronary Disease-Associated Artery/Lesion type: bypass graft [place] vs. transplanted heart: [place] heart Associated angina: without angina Qualified Code(s): I25.810 - Atherosclerosis of coronary artery bypass graft(s) without angina pectoris (4) Hyponatremia Current Visit: Yes Status: Acute Plan: Patient seems to have a problem with hyponatremia chronically. -No response to IVF. -Per daughter at bedside, pt was on salt tablets when he was discharged from the hospital previously but he did stop taking them. -Nephrology consulted, awaiting recommendations -Will have to hold surgery until sodium at least above 130. - - Plan DVT prophylaxis: Hold chemical anticoagulation for surgery. SCDs GI prophylaxis: Protonix Diet: NPO Disposition: Awaiting cardiac clearance, nephrology recommendations and surgical intervention.
--- NOTE | 2019-02-15 12:51 | ECHO ---
HEIGHT: 5 ft 9 in WEIGHT: 127 lb 0 oz DATE OF STUDY: 02/15/[address]: Dontae Looney MD 2-DIMENSIONAL: YES M.MODE: YES DOPPLER: YES COLOR FLOW: YES TDS: YES PORTABLE: NO DEFINITY: NO BUBBLE STUDY: NO DIAGNOSIS: CORONARY ARTERY DISEASE, PRE-OP FEMORAL NECK FRACTURE CARDIAC HISTORY: CATHERIZATION: YES SURGERY: YES PROSTHETIC VALVE: NO PACEMAKER: NO MEASUREMENTS (cm) DIASTOLIC (NORMALS) SYSTOLIC (NORMALS) IVSd (0.6-1.2) LA Diam (1.9-4.0) LVEF 60-69% LVIDd (3.5-5.7) LVIDs (2.0-3.5) %FS % LVPWd (0.6-1.2) Ao Diam (2.0-3.7) 2 DIMENSIONAL ASSESSMENT: RIGHT ATRIUM: NORMAL LEFT ATRIUM: DILATED RIGHT VENTRICLE: NORMAL LEFT VENTRICLE: NORMAL TRICUSPID VALVE: NORMAL MITRAL VALVE: NORMAL PULMONIC VALVE: NORMAL AORTIC VALVE: NORMAL PERICARDIAL EFFUSION: NONE AORTIC ROOT: NORMAL LEFT VENTRICULAR WALL MOTION: PARADOXICAL SEPTAL MOTION SEEN WITH THORACOTOMY. DOPPLER/COLOR FLOW: MILD TRICUSPID REGURGITATION. NORMAL RIGHT VENTRICULAR SYSTOLIC PRESSURE. COMMENTS: NORMAL LEFT VENTRICULAR EJECTION FRACTION WITH PARADOXICAL SEPTAL MOTION. MILD TRICUSPID REGURGITATION. TECHNOLOGIST: Bunny MARRERO
[2019-02-15] MEDS: GABAPENTIN 300 MG CAP PO SCH ×3 (13:11→20:13)
--- NOTE | 2019-02-15 14:22 | CON ---
Identification: 68-year-old man. Chief Complaint: Pain in the hip. He fell and broke one of his femoral neck. Dr. Armstrong has seen h im and recommended hip nailing. I am asked to evaluate his heart condition. History Of Present Illness: Mr. Martinez has severe heart disease in April 2018 or 2016 and not t otally sure he underwent bypass surgery that was after he had received a few stents and then sometime in early 2018, he underwent another intracoronary stent. Over the past several years, he has had bi lateral carotid endarterectomy, severe peripheral vascular disease. He is a regular cigarette smoker and did not voice any desire or inclination to try to quit smoking. Medications: His outpatient medications are tramadol, oxcarbazepine, gabapentin, hydrocodone, mecliz ine, Protonix, and metoprolol. He is not on aspirin, any other blood thinners, not on a statin. Not on any of the usual medications that I would expect a purse to be on. Patient was unable to comment on things. I believe he has history of poor compliance. Physical Examination: General: He appears to be older than his stated age of 68. 5 feet 9 inch, 127 pounds. Bilateral ca rotid endarterectomy scars. There is no significant bruit. Heart: Reveals a regular rate and rhythm. Abdomen: Soft. Extremities: Reveal absent pulses. Skin: Cool and slightly pink. No ulcers. Imaging: His electrocardiogram shows sinus bradycardia, first degree AV block, nonspecific ST and T abnormality. Impression: The patient's heart condition is advanced, very severe heart disease, probably not ideal ly medically treated even, but he is not having unstable angina. So regarding his coronary circulati on, I think he is acceptable risk for going through the surgery. His sodium is very low and that ghulam uld be corrected hopefully, Nephrology. Dr. Billy will strive to get it a little bit better than 130 before he actually goes under anesthesia. Of note, his sodium was low at 9 years ago when he was in our hospital. He had no followup with us in the last 9 years. I do not know if he was able to ever get his sodium normal or not. I do not have a real cause for I suspect very poor nutrition as being the main cause. We will get an echocardiogram. DAIANA/JORGE Voice ID: [id number] Report ID: [id number]
[2019-02-15] MEDS: FUROSEMIDE 20 MG TABLET PO SCH (15:02)
[2019-02-15] MEDS: HYDROCODONE/APAP 5/325 MG TAB PO PRN ×2 (15:02→20:14)
[2019-02-15] MEDS ORDERED: SODIUM CHLORIDE 1 GM TAB PO SCH (17:00)
[2019-02-15 17:11] LABS: Urine Appearance CLEAR; Urine Bilirubin NEGATIVE (NEG); Urine Blood TRACE (NEG); Urine Color YELLOW; Urine Glucose NEGATIVE (NEG); Urine Protein NEGATIVE (NEG); Urine pH 6.5 (5.0-7.0)
[2019-02-15 17:21] LABS: Urine Bacteria <20 /HPF (NONE SEEN); Urine Culture Reflex Order NOT NEEDED
[2019-02-15] MEDS: MECLIZINE HCL 12.5 MG TAB PO PRN (20:16)
[2019-02-16] MEDS: MORPHINE 2 MG/ML SYR IV PRN ×5 (01:28→23:35)
[2019-02-16 05:20] LABS: Absolute Lymphocytes (CBC) 0.8 K/uL (0.7-4.9); Basophils % 0.7 % (0-1.3); Hematocrit 31.4 % (39.6-49.0); Lymphocytes % 15.4 % (15.3-44.8); MPV 7.5 fL (7.6-11.3); RBC Red Blood Cell Count 3.25 M/uL (4.33-5.43)
[2019-02-16] MEDS: NA CHLORIDE 0.9% 1,000 ML IV SCH ×3 (05:20→23:35)
[2019-02-16 05:57] LABS: Albumin 3.3 g/dL (3.4-5.0); Bilirubin Total 0.5 mg/dL (0.2-1.0); Magnesium 1.6 mg/dL (1.8-2.4); Phosphorus 3.4 mg/dL (2.5-4.9); Potassium 3.5 mmol/L (3.5-5.1); Protein, Total 6.9 g/dL (6.4-8.2); Thyroid Stimulating Hormone 1.75 uIU/mL (0.360-3.740); Uric Acid 1.9 mg/dL (3.5-7.2)
[2019-02-16] MEDS ORDERED: MAGNESIUM SULFATE 1 gm IVPB 1 GM/100 ML BAG IV ONE (07:00)
[2019-02-16] MEDS ORDERED: KCL 20 MEQ/100 mL IVPB 20 MEQ/100 ML BAG IV SCH (08:00)
[2019-02-16] MEDS: OXcarbazepine 150 MG TAB PO SCH ×3 (09:00→21:07)
[2019-02-16] MEDS: GABAPENTIN 300 MG CAP PO SCH ×3 (09:00→21:07)
[2019-02-16] MEDS ORDERED: MORPHINE 2 MG/ML SYR IV ONE (11:13)
[2019-02-16] MEDS ORDERED: CEFAZOLIN/SWI 1gm 1 GM/10 ML SYR ONE (11:39)
[2019-02-16] MEDS ORDERED: Ringers Lactate 1,000 ML IV ONE ×2 (11:45→14:04)
[2019-02-16] MEDS ORDERED: LIDOCAINE 2% MPF 5 ML VIAL ONE (11:55)
[2019-02-16] MEDS ORDERED: FENTANYL CITR 100 MCG/2 ML ONE (11:55)
[2019-02-16] MEDS ORDERED: PROPOFOL 200 MG/20 ML VIAL IV ONE (11:55)
[2019-02-16] MEDS ORDERED: MIDAZOLAM HCL 2 MG/2 ML INJ ONE (11:55)
[2019-02-16] MEDS ORDERED: BUPIVACA 0.5%/EPI 0.0005%/PF 30 ML VIAL ONE (12:25)
--- NOTE | 2019-02-16 12:31 | P.PN ---
Subjective Date of Service: 02/16/19 Chief Complaint: Fall/fracture Patient seen and examined at bedside. No family at bedside. Chart reviewed and case discussed with nursing staff. Complaining of pain in the right hip No acute events noted overnight Sodium slightly improved to 127 this morning Review of Systems 10-point ROS is otherwise unremarkable Physical Examination - Vital Signs Temperature: 98.6 F Blood Pressure: 151/70 Pulse: 80 Respirations: 18 Pulse Ox (%): 95 - Physical Exam General: Alert, In no apparent distress HEENT: Atraumatic, PERRLA, EOMI Neck: Supple, JVD not distended Respiratory: Clear to auscultation bilaterally, Normal air movement Cardiovascular: Regular rate/rhythm, Normal S1 S2 Gastrointestinal: Normal bowel sounds, No tenderness Musculoskeletal: No tenderness Integumentary: No rashes Neurological: Normal speech, Normal tone, Normal affect Lymphatics: No axilla or inguinal lymphadenopathy Assessment And Plan - Current Problems (Diagnosis) (1) Intertrochanteric fracture of right hip Onset Date: ~02/14/19 Current Visit: Yes Status: Acute Plan: -Dr. Armstrong, orthopedics consulted. Recommendations appreciated. -IV pain control -continue gentle hydration -he will likely need surgical intervention, orthopedic recommendations appreciated. Pending surgery today -Cardiology consult for cardiac clearance. (2) Hypertension Current Visit: Yes Status: Chronic Plan: Stable. Will resume home medications (3) CAD (coronary artery disease) Current Visit: Yes Status: Acute Plan: Stable, Will resume home medications (4) Hyponatremia Current Visit: Yes Status: Acute Plan: Patient seems to have a problem with hyponatremia chronically. Slightly improved with salt tablets. -No response to IVF. -Per daughter at bedside, pt was on salt tablets when he was discharged from the hospital previously but he did stop taking them. -Nephrology consulted, recommendations appreciated. - - Plan DVT prophylaxis: Hold chemical anticoagulation for surgery. SCDs GI prophylaxis: Protonix Diet: NPO Disposition: Awaiting surgical intervention.
[2019-02-16] MEDS ORDERED: GLYCOPYRROLATE 0.2 MG/ML SYR ONE (12:58)
[2019-02-16] MEDS ORDERED: EPHEDRINE SULF 50 MG/ML VIAL ONE (13:08)
[2019-02-16] MEDS: MORPHINE 4 MG/ML SYR ONE ×3 (14:24→14:35)
--- NOTE | 2019-02-16 14:28 | P.BOP ---
Preoperative diagnosis: CLOSED, NONDISPLACED RIGHT INTERTROCHANTERIC FRACTURE PROXIMAL FEMUR Postoperative diagnosis: SAME Primary procedure: INSERTION IM NAIL RIGHT PINTERTROCHANTERIC HIP FRACTURE [employer] Technician: Nathanael Armstrong Estimated blood loss: 150 mL Specimen: NONE Anesthesia: General Complications: None Drain(s): Urinary catheter (INSERTED UNDER GEN ANESTH) Implants: AFFIXUS [id number];LAG10.5X95mm;AR80mm;LU. [id number] Fluids & blood products: INJ 30 mL 0.25% MARCAINE PLAIN INTO INCISIONS Transferred to: Recovery Room Condition: Good
[2019-02-16] MEDS ORDERED: MORPHINE 4 MG/ML SYR ONE ×2 (14:36→14:50)
[2019-02-16] MEDS ORDERED: HYDROMORPHONE HCL 1 MG/ML INJ ONE (15:05)
[2019-02-16] MEDS ORDERED: KETOROLAC 30 MG/ML INJ ONE (15:05)
[2019-02-16] MEDS: FUROSEMIDE 20 MG TABLET PO SCH (16:22)
[2019-02-16] MEDS: PANTOPRAZOLE 40MG TABLET PO SCH (16:22)
[2019-02-16] MEDS: METOPROLOL TAR 25 MG TAB PO SCH (16:23)
[2019-02-16] MEDS: SODIUM CHLORIDE 1 GM TAB PO SCH (18:35)
[2019-02-16] MEDS: CEFAZOLIN/SWI 1gm 1 GM/10 ML SYR IVP SCH ×2 (18:35→23:35)
--- NOTE | 2019-02-16 19:02 | CON ---
Date of Consultation: 02/15/2019 Reason For Consultation: Elevated BUN and creatinine, hyponatremia, surgical clearance for hip surge ry. History Of Present Illness: This is a 68-year-old gentleman with significant past medical history of coronary artery disease with recent HI with cardiac cath back in April 2018 with PTCA, complicate d with apparently pericardial effusion, required pericardial window; carotid stenosis, status post an trectomy in the same time; hypertension; nephrolithiasis, status post lithotripsy 3 times; hyponatrem ia around the surgery back in April. Apparently, for that reason, the patient was placed on salt tablet during the hospitalization, but after 1 month, the patient did not get the refill. For that r selina, patient stopped the salt tablet. The patient was in his regular state of health yesterday, st art feeling dizzy, weak with light headed. The patient has mechanical fall, has hip fracture. For t hat reason, approached to the hospital. Primary workup showed hyponatremia, sodium 125. For that re ason, we have been consulted. The patient denied taking nonsteroidal. No recent change in his medic ation as I mentioned. The patient off salt tablet for the last few months. Past Medical History: 1.Carotid stenosis, status post antrectomy. 2.Coronary artery disease, status post PTCA, status post HI, cardiac cath with PTCA back in April 2018. 3.Pericardial effusion, status post pericardial window. 4.Nephrolithiasis. 5.Hyponatremia. Social History: Ex-smoker. Denied alcohol. Denies drugs abuse. Allergies: CODEINE. Home Medications: Include gabapentin, oxcarbazepine, tramadol, hydrocodone, meclizine, metoprolol, p antoprazole. Review of Systems: Head and Neck: No red eye. No ear pain. GI: Has nausea and vomiting. No diarrhea. : No polyuria. No dysuria. No hematuria. 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 Respiratory: No shortness of breath. Cardiovascular: No leg swelling. Endocrine: No polydipsia. Skin: No rash. Neurologic: Has fall. Has dizziness. Musculoskeletal: Pain in the hip. Physical Examination: Vital Signs: When I saw the patient; blood pressure of 148/69, pulse of 72. Chest: Clear to auscultation. Heart: S1, S2. Regular. Abdomen: Soft, nontender. Extremities: No edema. Tenderness on the right hip. Neurologic: Alert, oriented x3. Nonfocal. Laboratory Data: WBC 6.7, H and H 10.8/30.8, platelets 153. Sodium 125, potassium 4.8, bicarb 22, B UN 16, creatinine 1.1, calcium 7.9. Magnesium 1.7. BNP 2100. Urinalysis, specific gravity of 1.015 , negative for infection. Current Medications: The patient on its include: 1.Cefazolin. 2.Metoprolol. 3.Gabapentin. 4.Pantoprazole. 5.Hydrocodone. Assessment And Plan: Hyponatremia, possible secondary to syndrome of inappropriate antidiuretic horm one secretion, secondary to pain superimposed with chronic hyponatremia, secondary to his syndrome of inappropriate antidiuretic hormone secretion superimposed with depletional, secondary to gastrointes tinal loss. 1.I am going to go ahead and continue on normal saline. We will start the patient on Lasix 20 mg da yayo and we will start the patient on salt tablet and we will monitor the patient. I am going to go a head and send for cortisol TSH. We will follow up the patient closely. The patient will not be natan red from the renal standpoint and the current level of sodium for general anesthesia if sodium correc rosmery above 130. At that time, we will be able to clear him up. 2.Hypertension, controlled, optimal. 3.Hypomagnesemia. We will supplement. 4.Hip fracture. Plan for surgery as above. We are not going to clear the patient for the time luba vargas. For surgery, we will follow up lab tomorrow. Thank you, Dr. Billy, for allowing us to participate in the care of your patient. MAIDA Voice ID: [id number] Report ID: [id number]
[2019-02-16] MEDS ORDERED: ONDANSETRON 4 MG/2 ML VIAL IV PRN (21:43)
[2019-02-16] MEDS: HYDROCODONE/APAP 5/325 MG TAB PO PRN (21:46)
[2019-02-17] MEDS: FENTANYL CITR 100 MCG/2 ML IV PRN ×4 (02:04→18:49)
[2019-02-17 03:54] LABS: Urine Appearance CLEAR; Urine Bilirubin NEGATIVE (NEG); Urine Blood 1+ (NEG); Urine Color DK YELLOW; Urine Glucose NEGATIVE (NEG); Urine Protein TRACE (NEG); Urine Specific Gravity 1.025 (1.005-1.030)
[2019-02-17 03:59] LABS: Urine Microscopic Reflex ORDER UMIC
[2019-02-17 05:11] LABS: Urine Bacteria <20 /HPF (NONE SEEN); Urine Culture Reflex Order REFLEXED; Urine Mucus LIGHT /HPF (NONE SEEN); Urine RBC 20-50 /HPF (NONE SEEN)
[2019-02-17 06:10] LABS: Absolute Lymphocytes (CBC) 0.6 K/uL (0.7-4.9); Basophils % 0.7 % (0-1.3); Hematocrit 26.4 % (39.6-49.0); Lymphocytes % 9.4 % (15.3-44.8); MPV 7.7 fL (7.6-11.3); RBC Red Blood Cell Count 2.76 M/uL (4.33-5.43)
[2019-02-17] MEDS ORDERED: Magnesium Sulfate 2gm IVPB 2 G/50 ML BAG IV ONE ×2 (06:14→08:00)
[2019-02-17 06:20] LABS: Albumin 2.9 g/dL (3.4-5.0); Bilirubin Total 0.4 mg/dL (0.2-1.0); Phosphorus 4.3 mg/dL (2.5-4.9); Potassium 4.2 mmol/L (3.5-5.1); Protein, Total 5.8 g/dL (6.4-8.2)
[2019-02-17] MEDS: PANTOPRAZOLE 40MG TABLET PO SCH (08:08)
[2019-02-17] MEDS: GABAPENTIN 300 MG CAP PO SCH ×3 (08:08→21:14)
[2019-02-17] MEDS: FUROSEMIDE 20 MG TABLET PO SCH (08:09)
[2019-02-17] MEDS: METOPROLOL TAR 25 MG TAB PO SCH (08:09)
[2019-02-17] MEDS: SODIUM CHLORIDE 1 GM TAB PO SCH ×2 (08:09→16:54)
[2019-02-17] MEDS: OXcarbazepine 150 MG TAB PO SCH ×3 (08:09→21:14)
[2019-02-17] MEDS: LORAZEPAM 0.5 MG TABLET PO PRN (08:10)
[2019-02-17] MEDS ORDERED: ENOXAPARIN 40 MG/0.4 ML SQ SCH (09:00)
[2019-02-17] MEDS: HYDROCODONE/APAP 7.5/325 MG TAB PO PRN ×2 (10:33→16:54)
--- NOTE | 2019-02-17 11:48 | P.PN ---
Subjective Date of Service: 02/17/19 Chief Complaint: Fall/fracture Patient seen and examined at bedside. No family at bedside. Chart reviewed and case discussed with nursing staff. Complaining of pain in the right hip No acute events noted overnight Sodium slightly improved to 132 this morning Review of Systems 10-point ROS is otherwise unremarkable Physical Examination - Vital Signs Temperature: 99.8 F Blood Pressure: 135/66 Pulse: 76 Respirations: 19 Pulse Ox (%): 96 - Physical Exam General: Alert, In no apparent distress HEENT: Atraumatic, PERRLA, EOMI Neck: Supple, JVD not distended Respiratory: Clear to auscultation bilaterally, Normal air movement Cardiovascular: Regular rate/rhythm, Normal S1 S2 Gastrointestinal: Normal bowel sounds, No tenderness Musculoskeletal: No tenderness Integumentary: No rashes Neurological: Normal speech, Normal tone, Normal affect Lymphatics: No axilla or inguinal lymphadenopathy Assessment And Plan - Current Problems (Diagnosis) (1) Intertrochanteric fracture of right hip Onset Date: ~02/14/19 Current Visit: Yes Status: Acute Plan: -Dr. Armstrong, orthopedics consulted. Recommendations appreciated. POD #1 s/p nail insertion on right intratrochanteric -IV pain control -continue gentle hydration Qualifiers: Encounter type: initial encounter Fracture type: closed Fracture alignment: nondisplaced Qualified Code(s): S72.144A - Nondisplaced intertrochanteric fracture of right femur, initial encounter for closed fracture (2) Hypertension Current Visit: Yes Status: Chronic Plan: Stable. Will resume home medications Qualifiers: Hypertension type: essential hypertension Qualified Code(s): I10 - Essential (primary) hypertension (3) CAD (coronary artery disease) Current Visit: Yes Status: Acute Plan: Stable, Will resume home medications Qualifiers: Coronary Disease-Associated Artery/Lesion type: bypass graft [place] vs. transplanted heart: [place] heart Associated angina: without angina Qualified Code(s): I25.810 - Atherosclerosis of coronary artery bypass graft(s) without angina pectoris (4) Hyponatremia Current Visit: Yes Status: Acute Plan: Patient seems to have a problem with hyponatremia chronically. Improving with salt tablets. -Per daughter at bedside, pt was on salt tablets when he was discharged from the hospital previously but he did stop taking them. -Nephrology consulted, recommendations appreciated. - - Plan DVT prophylaxis: Restart chemical anticoagulation 24 hr post surgery. SCDs GI prophylaxis: Protonix Diet: Heart healthy Disposition: Pending physical therapy, rehab consult and placement. Social work involved
--- NOTE | 2019-02-17 12:45 | P.PN ---
Date of Service: 02/17/19 (POD#1) S: PATIENT WORKING WITH PT. SIT TO STAND OBSERVED. PATIENT C/O PAIN LATERAL RIGHT THIGH AND DOWN TO ANKLE RLE. INDICATES HE HAS HAD SCIATICA FOR YEARS AND HIS "BACK IS A WRECK". DENIES PRIOR BACK SURGERY. PATIENT WAS C/O SAME SXS WHILE IN [facility]. O: AFEBRILE, VSS, PAIN CHART 7,10,0.0/10; HTN 160/94; HGB9.4, WBC5.9, NEUT 74% , NA132, GFR 65%; FENTANYL 25 mcg IV USED FOR > 7/10 PAIN INTENSITY. RIGHT HIP BANDAGE CLEAN DRY AND INTACT. PATIENT STOOD WITH WALKER, BACK TILTED FORWARD TO NEAR HORIZONTAL, FACE TO FLOOR. NO TENDERNESS TO PALPATION OF SPINOUS PROCESSES NECK TO SACRUM. NO SWELLING OR BRUISING NOTED. PATIENT C/O PAIN NECK TO ANKLE ON RIGHT SIDE. A: PROGRESS WITH PT LIMITED THIS AM WITH RADICULAR COMPLAINTS RLE, BACK AND NECK. P: MOBILIZE TOLERATED, CONTROL PAIN, CONSIDER IMAGING IF SCIATICA SXS PERSIST.
--- NOTE | 2019-02-17 13:06 | P.PN ---
Subjective Date of Service: 02/17/19 Chief Complaint: Fall/fracture Pt admitted after fall found to have Rt hip fracture, Hx of Chronic hyponatremia Today feels good S/p surgical intervention Na improving will cont salt tablet and lasix good UO will Dc IVF tomorrow if sodium cont to improve fluid restriction Physical Examination - Vital Signs Temperature: 99.8 F Blood Pressure: 135/66 Pulse: 76 Respirations: 19 Pulse Ox (%): 96 - Physical Exam General: In no apparent distress, Oriented x3 HEENT: Atraumatic Neck: Supple, Without JVD or thyroid abnormality Respiratory: Clear to auscultation bilaterally, Normal air movement Cardiovascular: No edema, Regular rate/rhythm, No gallops, No rubs, No murmurs Gastrointestinal: Normal bowel sounds, Soft and benign Musculoskeletal: No swelling Assessment And Plan - Plan Normovolemic Hyponatremia likely SIADH in view of low uric acid and High urine osmol cont salt tablet and fluid restiction and lasix rt Hip fracture S/P surgical intervention HTN Controlled
--- NOTE | 2019-02-17 18:33 | OP ---
Date of Procedure: 02/16/2019 Surgeon: Nathanael Armstrong MD Poured Pipe Maker: Nathanael Armstrong MD. Preoperative Diagnosis: Closed nondisplaced right intertrochanteric fracture, proximal femur. Postoperative Diagnosis: Closed nondisplaced right intertrochanteric fracture, proximal femur. Indications: This 68-year-old male has fallen, suffering a nondisplaced fracture of the right intert rochanteric hip. The patient is aware of risks and benefits and all questions answered. He has elec rosmery to proceed with insertion of IM nail right intertrochanteric hip fracture. Technique: The patient was taken to the operating room and given a general anesthesia on the operati ng table. He was given general anesthesia in his bed and then moved to the fracture table. The C-ar m was used to verify AP and lateral views. Time-out was called. All pertinent facts were discussed and it was decided to proceed with the operation as planned. The right hip was prepped and draped fr om the ribcage to below the knee. Using a vertical isolation drape, the incision was made just above the greater trochanter and the cannulated awl was moved in from the tip of the greater trochanter in to the intertrochanteric space. A guidewire was passed and then a 130 degree, 11 x 180 mm AFFIXUS na il was tapped into position. The guidewire was removed. The outrigger was used to site and align th e intramedullary nail, so that the guidewire was drilled in from incision laterally through the later al cortex and into the femoral head. Once the guidewire was in position, measurements were taken and a 95 mm lag screw was chosen. This allowed reaming and then passage of the lag screw with C-arm in 2 views, verifying its location. An 80 mm anti-rotational screw was inserted after drilling and then the sighting outrigger was used to make a stab wound and passed a 5 mm x 42 mm interlocking screw in to the distal portion of the short nail. This completed the fixation and this was verified in excell ent position with the C-arm. The punctures were then irrigated and closed with #1 Vicryl for fascial layers in the proximal 2 incisions and 2-0 Vicryl closing the subcutaneous tissue. Angelo were the n used on all 3 incisions. An Aquacel bandage was applied. Estimated blood loss was 150 mL. The pa tient was injected in each incision with 10 mL of 0.25% Marcaine with epi. The patient was taken to recovery room, having tolerated this procedure well. NABILA/JORGE Voice ID: [id number] Report ID: [id number]
[2019-02-17] MEDS: TRAMADOL HCL 50 MG TAB PO PRN (21:15)
[2019-02-17] MEDS: NA CHLORIDE 0.9% 1,000 ML IV SCH (21:17)
[2019-02-18] MEDS: HYDROCODONE/APAP 7.5/325 MG TAB PO PRN ×2 (03:40→13:24)
[2019-02-18] MEDS: FENTANYL CITR 100 MCG/2 ML IV PRN ×4 (04:55→23:25)
[2019-02-18 05:37] LABS: Albumin 2.7 g/dL (3.4-5.0); Phosphorus 3.8 mg/dL (2.5-4.9); Potassium 3.4 mmol/L (3.5-5.1)
[2019-02-18 05:40] LABS: Hematocrit 25.6 % (39.6-49.0)
[2019-02-18] MEDS ORDERED: POTASSIUM CL SA 10 MEQ TAB PO ONE (09:00)
[2019-02-18] MEDS: SODIUM CHLORIDE 1 GM TAB PO SCH ×2 (10:01→18:16)
[2019-02-18] MEDS: PANTOPRAZOLE 40MG TABLET PO SCH (10:02)
[2019-02-18] MEDS: METOPROLOL TAR 25 MG TAB PO SCH (10:02)
[2019-02-18] MEDS: GABAPENTIN 300 MG CAP PO SCH ×3 (10:02→20:43)
[2019-02-18] MEDS: FUROSEMIDE 20 MG TABLET PO SCH (10:02)
[2019-02-18] MEDS: OXcarbazepine 150 MG TAB PO SCH ×3 (10:03→20:43)
--- NOTE | 2019-02-18 11:28 | P.PN ---
Subjective Date of Service: 02/18/19 Chief Complaint: Fall/fracture Subjective: Improving Pt admitted after fall found to have Rt hip fracture, Hx of Chronic hyponatremia Today feels good Na improving will cont salt tablet and lasix will dc IVF consider to remove Duarte cath tomorrow fluid restriction Physical Examination - Vital Signs Temperature: 98.9 F Blood Pressure: 135/63 Pulse: 96 Respirations: 18 Pulse Ox (%): 95 - Physical Exam General: In no apparent distress, Oriented x3 HEENT: Atraumatic Neck: Supple, Without JVD or thyroid abnormality Respiratory: Clear to auscultation bilaterally Cardiovascular: No edema, Regular rate/rhythm, Abnormal S3, No gallops, No rubs , No murmurs Gastrointestinal: Soft and benign Musculoskeletal: No swelling Assessment And Plan - Plan Normovolemic Hyponatremia likely SIADH in view of low uric acid and High urine osmol cont salt tablet and fluid restiction and lasix rt Hip fracture S/P surgical intervention HTN Controlled
[2019-02-18] MEDS ORDERED: FENTANYL CITR 100 MCG/2 ML IV PRN (12:27)
--- NOTE | 2019-02-18 12:29 | P.PN ---
Subjective Date of Service: 02/18/19 Chief Complaint: Fall/fracture Subjective: Improving, Working w/ PT Patient seen and examined at bedside. No family at bedside. Chart reviewed and case discussed with nursing staff. Complaining of pain in the right hip after working with PT this am. No acute events noted overnight Sodium slightly improved to 133 this morning Review of Systems 10-point ROS is otherwise unremarkable Physical Examination - Vital Signs Temperature: 98.9 F Blood Pressure: 135/63 Pulse: 96 Respirations: 18 Pulse Ox (%): 95 - Physical Exam General: Alert, Oriented x3, Mild distress HEENT: Atraumatic, PERRLA, EOMI Neck: Supple, JVD not distended Respiratory: Clear to auscultation bilaterally, Normal air movement Cardiovascular: Regular rate/rhythm, Normal S1 S2 Gastrointestinal: Normal bowel sounds, No tenderness Musculoskeletal: No tenderness Integumentary: No rashes Neurological: Normal speech, Normal tone, Normal affect Lymphatics: No axilla or inguinal lymphadenopathy Assessment And Plan - Current Problems (Diagnosis) (1) Intertrochanteric fracture of right hip Onset Date: ~02/14/19 Current Visit: Yes Status: Acute Plan: -Dr. Armstrong, orthopedics consulted. Recommendations appreciated. POD #2 s/p nail insertion on right intratrochanteric -IV pain control -continue gentle hydration Qualifiers: Encounter type: initial encounter Fracture type: closed Fracture alignment: nondisplaced Qualified Code(s): S72.144A - Nondisplaced intertrochanteric fracture of right femur, initial encounter for closed fracture (2) Hypertension Current Visit: Yes Status: Chronic Plan: Stable. Will resume home medications Qualifiers: Hypertension type: essential hypertension Qualified Code(s): I10 - Essential (primary) hypertension (3) CAD (coronary artery disease) Current Visit: Yes Status: Acute Plan: Stable, Will resume home medications Qualifiers: Coronary Disease-Associated Artery/Lesion type: bypass graft [place] vs. transplanted heart: [place] heart Associated angina: without angina Qualified Code(s): I25.810 - Atherosclerosis of coronary artery bypass graft(s) without angina pectoris (4) Hyponatremia Current Visit: Yes Status: Acute Plan: Patient seems to have a problem with hyponatremia chronically. Improving with salt tablets. -Per daughter at bedside, pt was on salt tablets when he was discharged from the hospital previously but he did stop taking them. -Nephrology consulted, recommendations appreciated. - - Plan DVT prophylaxis: Restart chemical anticoagulation 24 hr post surgery. SCDs GI prophylaxis: Protonix Diet: Heart healthy Disposition: Pending physical therapy, rehab consult and placement. Social work involved
[2019-02-18] MEDS: LORAZEPAM 0.5 MG TABLET PO PRN (16:49)
--- NOTE | 2019-02-18 17:43 | P.PN ---
Date of Service: 02/18/19 (POD#2) S: PATIENT WORKING WITH PT. AGAIN TODAY. HE WAS MUCH MORE MOTIVATED AND EAGER TO START. FIRST STAB OF PAIN CAUSED HIM TO REVERSE AND INSIST ON BACK TO BED, BUT [facility]ING THERAPISTS TURNED HIM AROUND AGAIN TO COMPLETE BED ACTIVITIES, SIT ON EOB AND STAND FOR A FEW STEPS.. PATIENT STILL C/O PAIN LATERAL RIGHT THIGH AND DOWN TO ANKLE RLE. INDICATES HE HAS HAD SCIATICA FOR YEARS. X-RAYS YEARS AGO SHOWED A CURVE IN HIS SPINE. DENIES PRIOR BACK SURGERY. O: AFEBRILE, VSS, PAIN CHART 3,3,8.0/10; HTN 160/94; RIGHT HIP BANDAGE CLEAN DRY AND INTACT. NO TENDERNESS TO PALPATION OF SPINOUS PROCESSES NECK TO SACRUM. NO SWELLING OR BRUISING NOTED. PATIENT C/O PAIN NECK TO ANKLE ON RIGHT SIDE. A: PROGRESS WITH PT MUCH IMPROVED THIS AM, BUT RADICULAR COMPLAINTS RLE, BACK AND NECK PERSIST. P: CONTINUE MOBILIZATION TOLERATED. WILL REQUEST LUMBAR SPINE SERIES TODAY.
[2019-02-18] MEDS: ENOXAPARIN 40 MG/0.4 ML SQ SCH (18:16)
[2019-02-18] MEDS: TRAMADOL HCL 50 MG TAB PO PRN (20:43)
--- NOTE | 2019-02-18 21:21 | RAD REPORT ---
EXAM DESCRIPTION: RAD - Lumbar Spine 3 Views - 02/18/2019 7:16 pm CLINICAL HISTORY: Back pain, abdominal pain COMPARISON: None. FINDINGS: A three-view lumbar spine examination was performed. Lumbar bodies are normal in height an d alignment. No fracture or acute bony process seen. Bones are osteopenic. No significant disc space narrowing. Mild SI joint degenerative changes are present. No pars defects identified. Dense arterial tree calcifications are present. Facet joint degenerative change present. IMPRESSION: Osteopenic and degenerative lumbar spine changes. No acute finding evident.
[2019-02-19] MEDS: HYDROCODONE/APAP 7.5/325 MG TAB PO PRN ×3 (00:21→21:14)
[2019-02-19 05:49] LABS: Hematocrit 25.5 % (39.6-49.0)
[2019-02-19 06:11] LABS: Albumin 2.7 g/dL (3.4-5.0); Phosphorus 3.9 mg/dL (2.5-4.9); Potassium 3.5 mmol/L (3.5-5.1)
[2019-02-19] MEDS ORDERED: POTASSIUM CL SA 10 MEQ TAB PO ONE (09:00)
[2019-02-19] MEDS: SODIUM CHLORIDE 1 GM TAB PO SCH (09:02)
[2019-02-19] MEDS: METOPROLOL TAR 25 MG TAB PO SCH (09:02)
[2019-02-19] MEDS: OXcarbazepine 150 MG TAB PO SCH ×3 (09:03→21:15)
[2019-02-19] MEDS: FUROSEMIDE 20 MG TABLET PO SCH (09:03)
[2019-02-19] MEDS: PANTOPRAZOLE 40MG TABLET PO SCH (09:03)
[2019-02-19] MEDS: GABAPENTIN 300 MG CAP PO SCH ×3 (09:03→21:15)
--- NOTE | 2019-02-19 09:46 | EKG ---
Test Date: 2019-02-18 Test Time: 16:41:30 Electrical Foreman: ESTEVAN MEASUREMENT RESULTS: Intervals: Rate: 83 AK: 170 QRSD: 98 QT: 380 QTc: 446 [place]: P: 71 AK: 170 QRS: 11 T: -6 INTERPRETIVE STATEMENTS: Normal sinus rhythm Inferior infarct, age undetermined ST & T wave abnormality, consider anterolateral ischemia Abnormal ECG Compared to ECG 02/14/2019 11:53:31 Myocardial infarct finding now present Possible ischemia now present Sinus bradycardia no longer present First degree AV block no longer present ST (T wave) deviation still present Electronically Signed On 02-19-19 09:46:01 CDT by Dontae Looney
[2019-02-19] MEDS: FENTANYL CITR 100 MCG/2 ML IV PRN ×2 (11:02→17:32)
--- NOTE | 2019-02-19 12:26 | P.PN ---
Subjective Date of Service: 02/19/19 Chief Complaint: Fall/fracture Subjective: Working w/ PT Patient seen and examined at bedside. No family at bedside. Chart reviewed and case discussed with nursing staff. Pain is much improved this am. Working with PT No acute events noted overnight Sodium slightly improved to 135 this morning Review of Systems 10-point ROS is otherwise unremarkable Physical Examination - Vital Signs Temperature: 98.2 F Blood Pressure: 163/78 Pulse: 81 Respirations: 18 Pulse Ox (%): 98 - Physical Exam General: Alert, In no apparent distress HEENT: Atraumatic, PERRLA, EOMI Neck: Supple, JVD not distended Respiratory: Clear to auscultation bilaterally, Normal air movement Cardiovascular: Regular rate/rhythm, Normal S1 S2 Gastrointestinal: Normal bowel sounds, No tenderness Musculoskeletal: No tenderness Integumentary: No rashes Neurological: Normal speech, Normal tone, Normal affect Lymphatics: No axilla or inguinal lymphadenopathy Assessment And Plan - Current Problems (Diagnosis) (1) Intertrochanteric fracture of right hip Onset Date: ~02/14/19 Current Visit: Yes Status: Acute Plan: -Dr. Armstrong, orthopedics consulted. Recommendations appreciated. POD #3 s/p nail insertion on right intratrochanteric -IV pain control -continue gentle hydration -Continue PT Qualifiers: Encounter type: initial encounter Fracture type: closed Fracture alignment: nondisplaced Qualified Code(s): S72.144A - Nondisplaced intertrochanteric fracture of right femur, initial encounter for closed fracture (2) Hypertension Current Visit: Yes Status: Chronic Plan: Stable. Will resume home medications Qualifiers: Hypertension type: essential hypertension Qualified Code(s): I10 - Essential (primary) hypertension (3) CAD (coronary artery disease) Current Visit: Yes Status: Acute Plan: Stable, Will resume home medications Qualifiers: Coronary Disease-Associated Artery/Lesion type: bypass graft [place] vs. transplanted heart: [place] heart Associated angina: without angina Qualified Code(s): I25.810 - Atherosclerosis of coronary artery bypass graft(s) without angina pectoris (4) Hyponatremia Current Visit: Yes Status: Acute Plan: Patient seems to have a problem with hyponatremia chronically. Improving with salt tablets. -Per daughter at bedside, pt was on salt tablets when he was discharged from the hospital previously but he did stop taking them. -Nephrology consulted, recommendations appreciated. - Plan DVT prophylaxis: Lovenox GI prophylaxis: Protonix Diet: Heart healthy Disposition: Rehab placement denied. Social work involved, working on SNF placement.
--- NOTE | 2019-02-19 15:31 | P.PN ---
Date of Service: 02/19/19 (POD#3) S: PATIENT RESTING AFTER 2 SESSIONS WITH PT TODAY. RECORD SHOWS PATIENT REFUSED WHILE HAVING FAMILY DISCUSSION ABOUT SNF LOCATIONS. AFTERNOON SESSION NOT YET DOCUMENTED. O: AFEBRILE, VSS, PAIN CHART 8,4,8,4,10; RIGHT HIP BANDAGE CLEAN DRY AND INTACT. LUMBAR SPINE FILMS SHOWED NO ACUTE CHANGES OR FRACTURES. MILD DEGENERATIVE CHANGES WERE NOTED L-SPINE, SI JOINTS AND FACET JOINTS. BONY MALLEOLI NONTENDER TO PALPATION RIGHT ANKLE, BUT PALPATION OVER POSTERIOR DELTOID LIGAMENT AND TARSAL TUNNEL WAS TENDER WITH RADICULAR PAIN SHOOTING UP TO LATERAL,LOWER THIRD OF THIGH. A: PATIENT MORE COMFORTABLE WITH RIGHT HIP, BUT STILL C/O RIGHT ANKLE SITE OF WORST PAIN. P: CONTINUE MOBILIZATION TOLERATED. WILL REQUEST PORTABLE 3V ANKLE TODAY.
--- NOTE | 2019-02-19 16:26 | RAD REPORT ---
EXAM DESCRIPTION: RAD - Ankle Right 3 View - 02/19/2019 4:16 pm CLINICAL HISTORY: pain med. malleolus and ant. jointline COMPARISON: No comparisons FINDINGS: No acute fracture or dislocation seen. Small calcaneal spur. No aggressive marrow lesion. Vascular calcification evident.
[2019-02-19] MEDS: ENOXAPARIN 40 MG/0.4 ML SQ SCH (17:32)
[2019-02-20] MEDS: FENTANYL CITR 100 MCG/2 ML IV PRN ×2 (00:06→08:37)
[2019-02-20 06:02] LABS: Hematocrit 26.5 % (39.6-49.0)
[2019-02-20 06:08] LABS: Albumin 2.8 g/dL (3.4-5.0); Phosphorus 4.5 mg/dL (2.5-4.9)
[2019-02-20 06:09] LABS: Magnesium 1.4 mg/dL (1.8-2.4)
[2019-02-20] MEDS: OXcarbazepine 150 MG TAB PO SCH ×3 (08:37→20:58)
[2019-02-20] MEDS: METOPROLOL TAR 25 MG TAB PO SCH (08:37)
[2019-02-20] MEDS: FUROSEMIDE 20 MG TABLET PO SCH (08:38)
[2019-02-20] MEDS: PANTOPRAZOLE 40MG TABLET PO SCH (08:38)
[2019-02-20] MEDS: GABAPENTIN 300 MG CAP PO SCH ×3 (08:38→20:57)
[2019-02-20] MEDS ORDERED: Magnesium Sulfate 2gm IVPB 2 G/50 ML BAG IV ONE (09:00)
--- NOTE | 2019-02-20 10:50 | RAD REPORT ---
EXAM DESCRIPTION: CT - Head Brain Wo Cont - 02/20/2019 10:28 am CLINICAL HISTORY: change of status Headache, drowsiness, alteration of awareness COMPARISON: HEAD BRAIN W O CONTRAST dated 05/01/2014; HEAD BRAIN W O CONTRAST dated 01/02/2012 TECHNIQUE: All CT scans are performed using dose optimization technique as appropriate and may inclu de automated exposure control or mA/KV adjustment according to patient size. FINDINGS: No intracranial hemorrhage, hydrocephalus or extra-axial fluid collection.No areas of brai n edema or evidence of midline shift. The paranasal sinuses and mastoids are clear. The calvarium is intact. IMPRESSION: No acute intracranial abnormality.
--- NOTE | 2019-02-20 11:00 | RAD REPORT ---
EXAM DESCRIPTION: RAD - Chest Single View - 02/20/2019 10:42 am CLINICAL HISTORY: Difficulty breathing, rapid response chest film COMPARISON: February 14, 2019 TECHNIQUE: AP portable chest image was obtained in supine positioning 1031 hours . FINDINGS: No focal lung parenchymal process has developed since prior imaging. Skin fold artifact is seen over the lateral right upper lung field. Small calcified granuloma seen lower left lung field. Heart and vasculature are normal. No measurable pleural effusion and no pneumothorax. No acute bony a bnormality seen. No acute aortic findings suspected. IMPRESSION: No acute cardiopulmonary process. No new or progressive finding from the February 14 imaging.
[2019-02-20] MEDS: LIDOCAINE 4% PATCH TOP SCH (11:01)
[2019-02-20 11:13] LABS: Basophils % 1.1 % (0-1.3); Hematocrit 28.2 % (39.6-49.0); Lymphocytes % 15.3 % (15.3-44.8); RBC Red Blood Cell Count 2.92 M/uL (4.33-5.43)
[2019-02-20 11:40] LABS: Magnesium 1.9 mg/dL (1.8-2.4); Potassium 3.6 mmol/L (3.5-5.1); Troponin I 0.02 ng/mL (0.0-0.045)
--- NOTE | 2019-02-20 12:07 | PN ---
Date of Progress Note: 02/19/2019 Chief Complaint: Hyponatremia, SIADH History Of Present Illness: Patient is admitted to the hospital after he sustained fall and was found to have his right hip fracture. He has history of hyponatremia. The patient was found to have worsening of hyponatremia and he was started on sodium chloride tablets along with Lasix. IV fluids were stopped. The patient has been monitored for hyponatremia. Sodium level is gradually improving. The patient has a Duarte catheter for bladder outlet obstruction and urinary retention. Plan is to remove Duarte catheter. Review of Systems: Denies complaints. Physical Examination: Lungs: Clear to auscultation bilaterally. Heart: S1, S2. Abdomen: Soft, benign. Extremities: No edema. Impression And Plan: 1. 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 The patient was found to have low uric acid and high urine osmolality which goes along with SIADH. The patient was started on sodium chloride tablets and fluid restriction along with Lasix to prevent volume overload. Sodium level is improving. Plan is to hold sodium chloride tablet and re-evaluate renal panel to make recommendations as needed. 2. Status post surgical intervention for right hip fracture and management per primary team. 3. Hypertension. Blood pressure control. Avoid hydrochlorothiazide due to history of hyponatremia and risk of worsening of the hyponatremia secondary to hydrochlorothiazide. I spent total 36 min including 25 min to coordinate care plan. BOOM/JORGE Voice ID: [id number] Report ID: [id number] FINA
--- NOTE | 2019-02-20 12:27 | EKG ---
Test Date: 2019-02-20 Test Time: 10:08:35 Railroad Hand: HARVINDER MEASUREMENT RESULTS: Intervals: Rate: 77 NC: 170 QRSD: 100 QT: 400 QTc: 452 [place]: P: 81 NC: 170 QRS: 50 T: 63 INTERPRETIVE STATEMENTS: Sinus rhythm with frequent premature ventricular complexes in a pattern of bigeminy Cannot rule out Inferior infarct, age undetermined Abnormal ECG Compared to ECG 02/18/2019 16:41:30 Ventricular premature complex(es) now present ST (T wave) deviation no longer present Possible ischemia no longer present Myocardial infarct finding still present Electronically Signed On 02-20-19 12:26:23 CDT by Dontae Looney
--- NOTE | 2019-02-20 13:36 | P.PN ---
Subjective Date of Service: 02/20/19 Chief Complaint: Fall/fracture Patient seen and examined at bedside. No family at bedside. Chart reviewed and case discussed with nursing staff. Pain is much improved this am. Working with PT No acute events noted overnight Sodium slightly improved to 135 this morning Code anjana was called this morning due to dizziness while working with physical therapy. Review of Systems 10-point ROS is otherwise unremarkable Physical Examination - Vital Signs Temperature: 98.9 F Blood Pressure: 129/61 Pulse: 50 Respirations: 18 Pulse Ox (%): 98 - Physical Exam General: Alert, Oriented x3, Cachectic, Mild distress HEENT: Atraumatic, PERRLA, EOMI Neck: Supple, JVD not distended Respiratory: Clear to auscultation bilaterally, Normal air movement Cardiovascular: Regular rate/rhythm, Normal S1 S2 Gastrointestinal: Normal bowel sounds, No tenderness Musculoskeletal: No tenderness Integumentary: No rashes Neurological: Normal speech, Normal tone, Normal affect Lymphatics: No axilla or inguinal lymphadenopathy Assessment And Plan - Current Problems (Diagnosis) (1) Intertrochanteric fracture of right hip Onset Date: ~02/14/19 Current Visit: Yes Status: Acute Plan: -Dr. Armstrong, orthopedics consulted. Recommendations appreciated. POD #4 s/p nail insertion on right intratrochanteric -IV pain control -continue gentle hydration -Continue PT Qualifiers: Encounter type: initial encounter Fracture type: closed Fracture alignment: nondisplaced Qualified Code(s): S72.144A - Nondisplaced intertrochanteric fracture of right femur, initial encounter for closed fracture (2) Hypertension Current Visit: Yes Status: Chronic Plan: Stable. -will discontinue hydrochlorothiazide, due to history of hyponatremia Qualifiers: Hypertension type: essential hypertension Qualified Code(s): I10 - Essential (primary) hypertension (3) CAD (coronary artery disease) Current Visit: Yes Status: Acute Plan: Stable, Will resume home medications Qualifiers: Coronary Disease-Associated Artery/Lesion type: bypass graft [place] vs. transplanted heart: [place] heart Associated angina: without angina Qualified Code(s): I25.810 - Atherosclerosis of coronary artery bypass graft(s) without angina pectoris (4) Hyponatremia Current Visit: Yes Status: Acute Plan: Patient seems to have a problem with hyponatremia chronically. Improving with salt tablets. -Per daughter at bedside, pt was on salt tablets when he was discharged from the hospital previously but he did stop taking them. -Nephrology consulted, recommendations appreciated. (5) Dizziness Current Visit: Yes Status: Acute Plan: This morning, patient was worked with physical therapy and seemed that he got a little dizzy. Patient was helped back into bed but he would not talk or respond. Radial pulse with strict by physical therapy, unable to be filed. Code blue was called and the patient. I responded to the code, at the time of my exam, patient was alert oriented x3 but dizzy. -Vital signs were stable including blood pressure, heart rate, pulse was checked manually and was normal. Blood sugars were normal. -CT scan of the head was done, which was negative for any acute abnormality -EKG was done, reviewed. No fairly unremarkable -initially, decision was made to transfer patient to the ICU. Patient improved in mentation and dizziness resolved prior to being transferred. Therefore transferred to the ICU was canceled -it seems that patient has a history of similar episodes in the past. He states that he has a history of vertigo as well as carotid artery stenosis? Which has been evaluated in is not operable at this time. -will continue to monitor patient on the floor. He is now stable, back to baseline and doing well. - Plan DVT prophylaxis: Lovenox GI prophylaxis: Protonix Diet: Heart healthy Disposition: Rehab placement denied. Social work involved, working on SNF placement.
--- NOTE | 2019-02-20 13:42 | RAD REPORT ---
EXAM DESCRIPTION: - CP - 02/20/2019 1:31 pm CLINICAL HISTORY: dizziness Headache, drowsiness COMPARISON: No comparisons TECHNIQUE: Real-time sonographic evaluation of both carotid systems was performed. Doppler interroga tion was performed with waveform tracing bilaterally. FINDINGS: Normal high resistance waveforms are noted in both external carotid arteries. The common c arotid arteries and internal carotid arteries show normal low resistance waveforms. Moderate hard plaquing is seen involving the proximal left internal carotid artery. No significant ri ght-sided internal carotid artery plaque seen. Peak systolic and end diastolic velocity values and th e ICA/CCA ratios are in the non-hemodynamically significant range. Antegrade flow seen in both vertebral arteries. IMPRESSION: Moderate multifocal hard plaquing involving the proximal left internal carotid artery. No evidence of a hemodynamically significant stenosis.
[2019-02-20] MEDS: HYDROCODONE/APAP 7.5/325 MG TAB PO PRN ×2 (14:13→20:57)
[2019-02-20] MEDS: ENOXAPARIN 40 MG/0.4 ML SQ SCH (16:26)
[2019-02-20] MEDS ORDERED: MAGNESIUM SULFATE 1 gm IVPB 1 GM/100 ML BAG IV ONE (17:00)
--- NOTE | 2019-02-20 17:34 | PN ---
Date of Progress Note: 02/20/2019 Subjective: The patient was admitted with acute kidney injury, nephrolithiasis, hyponatremia. The p atient was started on hydration, feeling much better. Sodium has been improved significantly. Physical Examination: Vital Signs: When I saw the patient. DICTATION ENDS HERE MAIDA Voice ID: [id number] Report ID: [id number]
--- NOTE | 2019-02-20 18:19 | PN ---
Date of Progress Note: 02/20/2019 Subjective: The patient today had dizzy spell. Physical Examination: Vital Signs: When I saw the patient, blood pressure of 129/61, pulse of 88. Chest: Clear to auscultation. Heart: S1, S2. Systolic murmur. Abdomen: Soft, nontender. Extremities: No edema. Laboratory Data: H and H 9.9/28.2. Sodium 133, potassium 3.6, bicarb 31, BUN 10, creatinine 1.07, m agnesium 1.9. Current Medications: The patient on its include; Lovenox, metoprolol, gabapentin. Lasix 20 daily, p antoprazole, magnesium sulfate, fentanyl, tramadol, KCl. Assessment And Plan: 1.Hyponatremia secondary to syndrome of inappropriate antidiuretic hormone secretion, recovered. I am going to continue the patient to be monitor. I continue current dose of Lasix. 2.Hypertension, controlled, optimal. Continue current treatment. 3.Hypomagnesemia. We will supplement. 4.Hip fracture, status post surgery. Follow up with surgery. MAIDA Voice ID: [id number] Report ID: [id number]
[2019-02-20] MEDS: TRAMADOL HCL 50 MG TAB PO PRN (18:20)
--- NOTE | 2019-02-20 21:53 | P.PN ---
Date of Service: 02/20/19 (POD#6) S: PATIENT DESCRIBES PASSING OUT DURING SESSION WITH PT THIS MORNING. THE PATIENT INDICATES THAT HAPPENED HE STOOD UP AFTER SITTING FOR 15 MINUTES ON THE EDGE OF THE BED. O: AFEBRILE, VSS, PAIN CHART 0,6,9,6,8/10; RIGHT HIP BANDAGE REMAINS CLEAN DRY AND INTACT. RIGHT ANKLE FILMS SHOWED NO ACUTE CHANGES, DISLOCATION OR FRACTURE. A: PATIENT MORE COMFORTABLE WITH RIGHT HIP, BUT STILL C/O RIGHT ANKLE SYMPTOMS P: CONTINUE MOBILIZATION TOLERATED WITH TOUCH DOWN AMBULATION RLE. CHANGE AQUACEL BANDAGE PRIOR TO DISCHARGE TO SNU. F/U MY OFFICE ~7D POST DISCHARGE
[2019-02-21] MEDS: TRAMADOL HCL 50 MG TAB PO PRN (01:39)
[2019-02-21] MEDS: HYDROCODONE/APAP 7.5/325 MG TAB PO PRN ×2 (05:48→14:09)
[2019-02-21 06:31] LABS: Hematocrit 26.5 % (39.6-49.0)
[2019-02-21 06:41] LABS: Magnesium 1.9 mg/dL (1.8-2.4); Potassium 3.9 mmol/L (3.5-5.1)
[2019-02-21] MEDS ORDERED: POTASSIUM CL SA 10 MEQ TAB PO ONE (09:00)
[2019-02-21] MEDS: LIDOCAINE 4% PATCH TOP SCH (09:20)
[2019-02-21] MEDS: OXcarbazepine 150 MG TAB PO SCH ×3 (09:21→21:37)
[2019-02-21] MEDS: METOPROLOL TAR 25 MG TAB PO SCH (09:21)
[2019-02-21] MEDS: FUROSEMIDE 20 MG TABLET PO SCH (09:22)
[2019-02-21] MEDS: GABAPENTIN 300 MG CAP PO SCH ×3 (09:23→21:37)
[2019-02-21] MEDS: PANTOPRAZOLE 40MG TABLET PO SCH (09:23)
--- NOTE | 2019-02-21 11:58 | RAD REPORT ---
EXAM DESCRIPTION: RAD - Hip In Or - 02/18/2019 9:53 am FINDINGS: There were 20 portable C-arm views obtained during a fluoroscopic assisted placement of fr acture fixation hardware. No suspicious or unexpected finding. Fluoro time was 1.2 minutes.
[2019-02-21] MEDS ORDERED: MAGNESIUM SULFATE 1 gm IVPB 1 GM/100 ML BAG IV ONE (14:00)
--- NOTE | 2019-02-21 14:11 | P.PN ---
Date of Service: 02/21/19 (POD#5) S: PATIENT HAD GOOD SESSION WITH PT THIS AM WORKING ON TRANSFERS. PATIENT UPSET OVER NURSE'S AIDS BRINGING BED FOFANA AND GRASPING RIGHT THIGH TO ROLL HIM TO THE LEFT. PATIENT TO BE TRANSFERRED TO SNU STAY TODAY. O: AFEBRILE, VSS, RIGHT HIP BANDAGE TO BE CHANGED WITH NEW AQUACEL PRIOR TO DISCHARGE. PATIENT TOLERATES TOGGLE AND CIRCUMDUCTION RIGHT HIP WITHOUT DISCOMFORT. POSITIVE TINEL AND TINGLING PAIN RIGHT TARSAL TUNNEL NOTED WITH SOME TINGLING RADIATING TO RIGHT THIGH. A: PATIENT COMFORTABLE WITH RIGHT HIP, BUT STILL C/O RIGHT ANKLE SYMPTOMS. HAD NO SPECIFIC TRAUMA TO RIGHT ANKLE, BUT REALIZED LAST NIGHT THAT ANKLE WAS UNDER STRESS WHEN SECURED TO THE FOOT PLATE OF FRACTURE TABLE WITH NECESSARY TRACTION TO ALIGN FRACTURE AND ROTATION TO POSITION THE GREATER TROCHANTER FOR SURGICAL PROCEDURE. P: PATIENT TO BE TRANSFERRED TO SNU TODAY. CONTINUE MOBILIZATION TOLERATED WITH TOUCH DOWN AMBULATION RLE. CHANGE AQUACEL BANDAGE PRIOR TO DISCHARGE TO SNU. F/U MY OFFICE ~7D POST HOSPITAL DISCHARGE
[2019-02-21] MEDS: ENOXAPARIN 40 MG/0.4 ML SQ SCH (16:14)
[2019-02-21] MEDS: SODIUM CHLORIDE 1 GM TAB PO SCH (16:16)
--- NOTE | 2019-02-21 16:51 | P.DS ---
Admission Date: 02/14/19 Discharge Date: 02/21/19 Disposition: TRANSFER TO DETENTION Discharge Condition: FAIR Reason for Admission: Fall/fracture Consultations: Orthopedic surgery Cardiology Procedures: 02/16/2019: Surgical fixation of the right hip - Problems (1) Intertrochanteric fracture of right hip Onset Date: ~02/14/19 Current Visit: Yes Status: Acute Qualifiers: Encounter type: initial encounter Fracture type: closed Fracture alignment: nondisplaced Qualified Code(s): S72.144A - Nondisplaced intertrochanteric fracture of right femur, initial encounter for closed fracture (2) Hypertension Current Visit: Yes Status: Chronic Qualifiers: Hypertension type: essential hypertension Qualified Code(s): I10 - Essential (primary) hypertension (3) CAD (coronary artery disease) Current Visit: Yes Status: Acute Qualifiers: Coronary Disease-Associated Artery/Lesion type: bypass graft [place] vs. transplanted heart: [place] heart Associated angina: without angina Qualified Code(s): I25.810 - Atherosclerosis of coronary artery bypass graft(s) without angina pectoris (4) Hyponatremia Current Visit: Yes Status: Acute (5) Dizziness Current Visit: Yes Status: Acute Brief History of Present Illness: This is a 68-year-old male past medical history of hypertension, bypass in April 2018, CAD who presented after a mechanical fall. Per patient, he had a fall today when he was walking out of the house. He thinks he lost his balance and fell. He did not hit his head but it is right-sided for the hip. He denies any dizziness, chest pain, shortness of breath, headache, vision changes, speech changes prior to the fall. He does state that he has had some falls recently, along with dizziness. He is on meclizine for the dizziness. But he did not have any dizziness or chest pain prior to this fall. Because of the unbearable pain, he was brought to the emergency room. In the ER, blood pressure was 148/65, heart rate of 60, respirations of 18, afebrile at 97.5 and satting 100% on room air. BMI of 18.75. Labs remarkable for sodium low at 125. Hip x-ray was done, which showed right intertrochanteric fracture. Chest x-ray without any acute abnormalities. In the ER, he received Zofran, IV fluids and fentanyl. At the time of my exam, patient was in moderate amount distress due to pain, hemodynamically stable, alert oriented x3. Hospital Course: Patient was admitted with intertrochanteric fracture right hip. Orthopedic surgery was consulted. Cardiology was consulted for cardiac clearance. Patient underwent nail insertion of right intratrochanteric hip. He started to work with physical therapy. During this hospitalization, bradford yeung was called for him. patient was working with physical therapy and seemed that he got a little dizzy. Patient was helped back into bed but he would not talk or respond. Radial pulse was checked by physical therapy, unable to be found. Bradford anjana was called on the patient. I responded to the code, at the time of my exam, patient was alert oriented x3 but dizzy. Vital signs were stable including blood pressure, heart rate, pulse was checked manually and was normal. Blood sugars were normal. CT scan of the head was done, which was negative for any acute abnormality. EKG was done, reviewed. No fairly unremarkable Initially, decision was made to transfer patient to the ICU. Patient improved in mentation and dizziness resolved prior to being transferred. Therefore transferred to the ICU was canceled He did well after that. He did work with physical therapy after that, without any incidence. He was hemodynamically stable otherwise. He will was appropriate for snf facility placement for further rehabilitation. Social work was consulted. Fair patient and family chose [facility], information was sent. Patient was discharged to [facility] once he was medically stable and accepted. Vital Signs/Physical Exam: Temp Pulse Resp BP Pulse Ox 97.8 F 86 18 120/63 100 02/21/19 12:00 02/21/19 12:00 02/21/19 14:09 02/21/19 12:00 02/21/19 14:09 General: Alert, In no apparent distress, Oriented x3 HEENT: Atraumatic, PERRLA, EOMI Neck: Supple, JVD not distended Respiratory: Clear to auscultation bilaterally, Normal air movement Cardiovascular: Regular rate/rhythm, Normal S1 S2 Gastrointestinal: Normal bowel sounds, No tenderness Musculoskeletal: No tenderness Integumentary: No rashes Neurological: Normal speech, Normal tone, Normal affect Lymphatics: No axilla or inguinal lymphadenopathy Laboratory Data at Discharge: WBC 6.6 K/uL (4.3-10.9) 02/20/19 10:44 Hgb 9.4 g/dL (13.6-17.9) L 02/21/19 05:40 Hct 26.5 % (39.6-49.0) L 02/21/19 05:40 Plt Count 176 K/uL (152-406) D 02/20/19 10:44 PT 12.3 SECONDS (9.5-12.5) 02/14/19 11:18 INR 1.04 02/14/19 11:18 Sodium 133 mmol/L (136-145) L 02/21/19 05:40 Potassium 3.9 mmol/L (3.5-5.1) 02/21/19 05:40 BUN 15 mg/dL (7-18) 02/21/19 05:40 Creatinine 1.09 mg/dL (0.55-1.3) 02/21/19 05:40 Glucose 89 mg/dL (74-106) 02/21/19 05:40 Uric Acid 1.9 mg/dL (3.5-7.2) L 02/16/19 04:32 Phosphorus 4.5 mg/dL (2.5-4.9) 02/20/19 05:28 Magnesium 1.9 mg/dL (1.8-2.4) 02/21/19 05:40 Total Bilirubin 0.4 mg/dL (0.2-1.0) 02/17/19 05:37 AST 29 U/L (15-37) 02/17/19 05:37 ALT 11 U/L (12-78) L 02/17/19 05:37 Alkaline Phosphatase 77 U/L (45-117) 02/17/19 05:37 Troponin I 0.02 ng/mL (0.0-0.045) 02/20/19 10:44 Home Medications: Gabapentin 300 mg PO TID 03/26/12 Oxcarbazepine 600 mg PO TID 03/26/12 Tramadol HCl [Tramadol HCl ER] 300 mg PO DAILY 03/26/12 Hydrocodone Bit/Acetaminophen [Hydrocodon-Acetaminophen 5-325] 1 each PO Q6HP PRN #40 tablet 06/04/12 Meclizine HCl [Motion Relief] 25 mg PO BID PRN 01/13/15 Metoprolol Tartrate [Lopressor*] 50 mg PO DAILY 02/14/19 Pantoprazole [Protonix Tab*] 40 mg PO DAILY 02/14/19 Sodium Chloride Tab [Sodium Chloride*] 1 gm PO BIDWM #30 tab 02/21/19 New Medications: Sodium Chloride Tab [Sodium Chloride*] 1 gm PO BIDWM #30 tab Patient Discharge Instructions: CONTINUE MOBILIZATION TOLERATED WITH TOUCH DOWN AMBULATION RLE. CHANGE AQUACEL BANDAGE PRIOR TO DISCHARGE TO SNU. F/U MY OFFICE ~7D POST DISCHARGE Diet: AHA Followup: Dontae Looney MD [ACTIVE - CAN ADMIT] - Nathanael Armstrong MD [ACTIVE - CAN ADMIT] - 1 Week Time spent managing pt's care (in minutes): 55
--- NOTE | 2019-02-21 19:05 | PN ---
Date of Progress Note: 02/21/2019 Subjective: The patient was admitted with hip fracture secondary to fall, found to have hyponatremia. The patient had SIADH. The patient was started on Lasix. Sodium has been normalized. Patient, today, blood pressure was down to the 80 with changing position. Physical Examination: Vital Signs: Blood pressure 153/69, pulse of 86. The patient had good urine output. Chest: Clear to auscultation. Heart: S1, S2. Regular. Systolic murmur. Abdomen: Soft, nontender. Extremities: No edema. Laboratory Data: H and H 9.4/26.5. Sodium 133, potassium 3.9, bicarb 30, BUN 15 , creatinine 1, calcium 8.4. Magnesium 1.9. Current Medications: The patient on: 1. Lasix 20 mg daily. 2. Lovenox. 3. Metoprolol 50 daily. 4. Gabapentin. 5. Tramadol. 6. Zofran. 7. Pantoprazole. 8. Hydrocodone. Assessment And Plan: 1. Acute kidney injury secondary to prerenal, recovered, resolved. 2. Hyponatremia secondary to syndrome of inappropriate antidiuretic hormone secretion. I going to go ahead and discontinue Lasix, start the patient on salt tablet 1 g b.i.d. and we will monitor the patient. 3. Hypomagnesemia. We will supplement. 4. Hip fracture. Continue PT, OT. 5. Bladder retention. We will discontinue Duarte. We will check a post void renal scan and we will follow up. MAIDA Voice ID: [id number] Report ID: [id number] MTDD
[2019-02-22] MEDS: HYDROCODONE/APAP 7.5/325 MG TAB PO PRN ×3 (01:37→15:16)
[2019-02-22] MEDS: FENTANYL CITR 100 MCG/2 ML IV PRN (02:21)
[2019-02-22 06:13] LABS: Magnesium 1.9 mg/dL (1.8-2.4); Phosphorus 4.3 mg/dL (2.5-4.9)
[2019-02-22 06:14] LABS: Hematocrit 25.5 % (39.6-49.0)
[2019-02-22 06:16] LABS: Potassium 3.6 mmol/L (3.5-5.1)
[2019-02-22] MEDS ORDERED: POTASSIUM CL SA 10 MEQ TAB PO ONE (07:48)
[2019-02-22] MEDS: GABAPENTIN 300 MG CAP PO SCH ×2 (08:50→13:43)
[2019-02-22] MEDS: METOPROLOL TAR 25 MG TAB PO SCH (08:50)
[2019-02-22] MEDS: PANTOPRAZOLE 40MG TABLET PO SCH (08:51)
[2019-02-22] MEDS: OXcarbazepine 150 MG TAB PO SCH ×2 (08:52→14:05)
[2019-02-22] MEDS: LIDOCAINE 4% PATCH TOP SCH (08:53)
[2019-02-22] MEDS: SODIUM CHLORIDE 1 GM TAB PO SCH (08:53)
[2019-02-22 09:23] VITALS: O2SAT 98
[2019-02-22] MEDS: MECLIZINE HCL 12.5 MG TAB PO PRN (09:31)
[2019-02-22 12:15] VITALS: BP 104/65; TEMP 98.1
[2019-02-22] MEDS ORDERED: SODIUM CHLORIDE 1 GM TAB PO SCH (14:00)
--- NOTE | 2019-02-22 16:09 | PN ---
Date of Progress Note: 02/22/2019 Subjective: The patient was admitted with hip fracture, hyponatremia secondary to SIADH. Yesterday, patient was hypotensive, orthostatic. Lasix has been discontinued. Physical Examination: Vital Signs: Blood pressure 122/69, pulse of 79. Patient had urine output of 450. Chest: Clear to auscultation. Heart: S1, S2. Systolic murmur. Abdomen: Soft, nontender. Extremities: No edema. Laboratory Data: H and H 9.1/25.5. Sodium 129, potassium 3.6, bicarb 29, BUN 17, creatinine of 1, c alcium 8.4, magnesium 1.9 phosphorus 4.3. Current Medications: The patient on its include: 1.Lovenox. 2.Metoprolol 50 b.i.d. 3.Gabapentin. 4.Meclizine. 5.Salt tablet 1 g b.i.d. Assessment And Plan: 1.Hyponatremia secondary to syndrome of inappropriate antidiuretic hormone. I am going to go ahead and increase salt tablet to t.i.d. We will resume Lasix and we will follow up the patient. I rather watch the patient for another day before transfer to a nursing facility. 2.Hypertension, controlled, optimal as I mentioned. We will resume Lasix again. 3.Hip fracture, status post surgery. We will follow up with primary. 4.Hypomagnesemia, status post supplement, resolved. MAIDA Voice ID: [id number] Report ID: [id number]
[2019-02-23] MEDS ORDERED: FUROSEMIDE 20 MG TABLET PO SCH (09:00)
--- NOTE | 2019-02-25 14:33 | P.PN ---
Subjective Date of Service: 02/22/19 Chief Complaint: Fall/fracture Subjective: No C/O voiced Patient seen and examined at bedside. No family at bedside. Chart reviewed and case discussed with nursing staff. Pain is much improved this am. Working with PT No acute events noted overnight . Review of Systems 10-point ROS is otherwise unremarkable Physical Examination - Vital Signs Temperature: 98.1 F Blood Pressure: 104/65 Pulse: 69 Respirations: 18 Pulse Ox (%): 96 - Physical Exam General: Alert, In no apparent distress HEENT: Atraumatic, PERRLA, EOMI Neck: Supple, JVD not distended Respiratory: Clear to auscultation bilaterally, Normal air movement Cardiovascular: Regular rate/rhythm, Normal S1 S2 Gastrointestinal: Normal bowel sounds, No tenderness Musculoskeletal: No tenderness Integumentary: No rashes Neurological: Normal speech, Normal tone, Normal affect Lymphatics: No axilla or inguinal lymphadenopathy Assessment And Plan - Current Problems (Diagnosis) (1) Intertrochanteric fracture of right hip Onset Date: ~02/14/19 Status: Acute Plan: -Dr. Armstrong, orthopedics consulted. Recommendations appreciated. POD #5 s/p nail insertion on right intratrochanteric -IV pain control -continue gentle hydration -Continue PT Qualifiers: Encounter type: initial encounter Fracture type: closed Fracture alignment: nondisplaced Qualified Code(s): S72.144A - Nondisplaced intertrochanteric fracture of right femur, initial encounter for closed fracture (2) Hypertension Status: Chronic Plan: Stable. -will discontinue hydrochlorothiazide, due to history of hyponatremia Qualifiers: Hypertension type: essential hypertension Qualified Code(s): I10 - Essential (primary) hypertension (3) CAD (coronary artery disease) Status: Acute Plan: Stable, Will resume home medications Qualifiers: Coronary Disease-Associated Artery/Lesion type: bypass graft [place] vs. transplanted heart: [place] heart Associated angina: without angina Qualified Code(s): I25.810 - Atherosclerosis of coronary artery bypass graft(s) without angina pectoris (4) Hyponatremia Status: Acute Plan: Patient seems to have a problem with hyponatremia chronically. Improving with salt tablets. -Per daughter at bedside, pt was on salt tablets when he was discharged from the hospital previously but he did stop taking them. -Nephrology consulted, recommendations appreciated. (5) Dizziness Status: Acute Plan: This morning, patient was worked with physical therapy and seemed that he got a little dizzy. Patient was helped back into bed but he would not talk or respond. Radial pulse with strict by physical therapy, unable to be filed. Code anjana was called and the patient. I responded to the code, at the time of my exam, patient was alert oriented x3 but dizzy. -Vital signs were stable including blood pressure, heart rate, pulse was checked manually and was normal. Blood sugars were normal. -CT scan of the head was done, which was negative for any acute abnormality -EKG was done, reviewed. No fairly unremarkable -initially, decision was made to transfer patient to the ICU. Patient improved in mentation and dizziness resolved prior to being transferred. Therefore transferred to the ICU was canceled -it seems that patient has a history of similar episodes in the past. He states that he has a history of vertigo as well as carotid artery stenosis? Which has been evaluated in is not operable at this time. -will continue to monitor patient on the floor. He is now stable, back to baseline and doing well. - Plan DVT prophylaxis: Lovenox GI prophylaxis: Protonix Diet: Heart healthy Disposition: Rehab placement denied. Discharge once accepted to SNF
== END 2019-02-22 16:21 | DRG 481 ==
LOC: ER 11:01 → ERHOLD 13:14 → 2ND 13:34
PROVIDERS: ADMIT Family Medicine; ATTEND Family Medicine
PROC: 0QS636Z Reposition Right Upper Femur with Intramedullary Internal Fixation Device, Percutaneous Approach (ICD-10-PCS; principal; 2019-02-16 12:00)
DX: S72.141A Displaced intertrochanteric fracture of right femur, initial encounter for closed fracture (principal); E22.2 Syndrome of inappropriate secretion of antidiuretic hormone; N17.9 Acute kidney failure, unspecified; W19.XXXA Unspecified fall, initial encounter; I10 Essential (primary) hypertension; I25.10 Atherosclerotic heart disease of native coronary artery without angina pectoris; R00.1 Bradycardia, unspecified; I44.0 Atrioventricular block, first degree; E83.42 Hypomagnesemia; R42 Dizziness and giddiness; R33.9 Retention of urine, unspecified
CPT/HCPCS: 36415; 70450; 71045; 72100; 73530; 80048; 80053; 80069; 80076; 81001; 81003; 81015; 82533; 82962; 83735; 83880; 83930; 83935; 84100; 84132; 84300; 84443; 84484; 84550; 85014; 85018; 85025; 85610; 86850; 86900; 86901; 87086; 87088; 93005; 93306; 93880; 94760; 96365; 96375; 97110; 97112; 97161; 97530; 99285; J0690; J1170; J1650; J2250; J2270; J2405; J2704; J3010; J3475; J7030; J7120; J8597

== ENCOUNTER 2020-09-28 12:32 | Observation (INO) | payer OTHER ==
--- OUTSIDE RECORDS SUMMARY | 2020-09-28 12:36 | XMS REPORT | Continuity of Care Document ---
:1950 Demographics Address [address]17 [place] [address] Work Phone Mobile Phone Email Address NONE Preferred Language en Marital Status Unknown Confucianist Affiliation Unknown Race Unknown Additional Race(s) Unavailable White Ethnic Group Unknown Author Organization [facility] t Address [address] [place] [address] Care Team Providers Name Role Phone Lolis Torres MD Primary Care Physician DR TONJA Attending Clinician Unavailable DR TONJA Admitting Clinician Unavailable Problems Condition Condition Condition Status Onset Resolution Last Treating Co mments Source Name Details Category Date Date Treatment Clinician Date Unstable Unstable Disease Active [place] ang[place] angina 06-28 Methodi 00:00: st 00 Left-sided Left-sided Disease Active 2017-05 [place] chest pain chest pain 08 Me thodi 00:00: st 00 NSTEMI NSTEMI Disease Active 2017-05 [place] (non-ST (non-ST 05-22 Methodi elevated elevated 00:00: st myocardial myocardial 00 infarction infarction ) ) PSVT PSVT Disease Active 2017-05 [place] (paroxysma (paroxysma 05-21 Me thodi l l 00:00: st supraventr supraventr 00 icular icular tachycardi tachycardi a) a) Acute on Acute on Disease Active [place] chronic chronic 02-11 Methodi congestive congestive 00:00: st heart heart 00 failure failure CHEST PAIN Diagnosis Active 2011-02-24 Memoria 01-24 10:02:00 l CHEST 12:00: [place] PAIN 00 Active 01/24/2011 [place] LOWER BACK Diagnosis Active 2011-01-20 Memoria PAIN 01-20 19:58:00 l LOWER 00:00: [place] BACK PAIN 00 Active 01/20/2011 [facility] KIDNEY Diagnosis Active 2011-01-20 Mem oria STONES 6-16 19:58:00 l KIDNEY 06:00: [place] STONES 00 Active 10/29/2010 [facility] LIFEFLIGHT Diagnosis Active 2011-04-01 Memoria 5-11 10:45:00 l 21:11: [place] LIFEFLIGHT 00 Active 09/23/2009 [facility] HEADACHE Diagnosis Active 2011-01-20 M emoria 5- 19:58:00 l HEADACHE 00:00: Bernard n 00 Active 09/23/2009 [facility] Kidney Problem Active 2011-01-26 Memor ia stone 08:29:47 l Kidney [place] stone Active Problem 01/26/2011 [facility] [place] Nephrostom Problem Active 2011-01-26 M emoria y tube 08:29:47 l [place] Nephrostom y tube Active Problem 01/26/2011 [facility] [place] Pain Problem Active 2011-01-26 Memor ia 08:29:47 l Pain Rolo Active Problem 01/26/2011 [facility] [place] CALCULUS Diagnosis Active 2011-01-20 M emoria OF KIDNEY 19:58:00 l CALCULUS Bernard n OF KIDNEY Active [facility] KIDNEY Diagnosis Active 2011-01-20 Mem oria ANOMALY 19:58:00 l NEC KIDNEY [place] ANOMALY NEC Active [facility] Pain in Pain in Diagnosis [facility] right hip [facility] Nondisplac Nondisplac Diagnosis Active [facility] intertroch Me moria anteric anteric l fracture fracture Outpat i of right of right ent femur, femur, Clinics subsequent subsequent encounter encounter for closed for closed fracture fracture with with routine routine healing healing Acid Acid Disease Active [place] reflux reflux Methodi st Wears Wears Disease Active [place] glasses glasses Methodi st Full Full Disease Active [place] dentures dentures Method i st Enlarged Enlarged Disease Active [place] prostate prostate Method i st History of History of Disease Active [facility] heart heart Methodi attack attack st TIA TIA Disease Active [place] (transient (transient Me thodi ischemic ischemic st attack) attack) Allergies, Adverse Reactions, Alerts Allergy Allergy Status Severity Reaction(s) Onset Inactive Treating Comm ents Source Name Type Date Date Clinician Codeine Propensi Active Rash 2007-0 Other [place] ty to 7-10 reaction( Methodi adverse 00:00: s): st reaction 00 Nausea s to and/or drug Vomiting CODEINE CODEINE Active Memoria l [place] penicill penicill Active Memori a ins ins l [place] codeine Adverse Active Info Not [facility] Reaction Available [facility] Family History Family Member Diagnosis Comments Start Date Stop Date Source Natural sister Uterine cancer [place] [facility] Natural sister Heart attack [place] [facility] Natural sister Liver cancer [place] [facility] Natural brother Lung cancer [place] [facility] Natural brother Heart attack [place] [facility] Natural father Leukemia [place] Me thodist Natural mother Uterine cancer [place] [facility] Social History Social Habit Start Date Stop Date Quantity Comments Source History of tobacco Cigarette Smoker [place] use Congregational History [facility] Alcohol Std Drinks Method ist History [facility] Alcohol Binge Congregational Cigarettes smoked 2018-07-03 2018-07-03 [place] current (pack per 00:00:00 00:00:[address] day) - Reported Cigarette 2018-07-03 2018-07-03 [place] pack-years 00:00:00 00:00:00 [facility]ational Tobacco use and 2018-07-03 2018-07-03 Current user [place] exposure 00:00:00 00:00:00 [facility]regational Alcohol intake 2018-07-03 2018-07-03 [facility] 00:00:00 00:00:00 non-drinker of Congregational alcohol (finding) History [facility] 2018-06-28 2018-06-28 1 [place] Alcohol Frequency 00:00:00 00:00:[address] Tobacco Comment 2018-06-28 2018-06-28 2 cigarettes per Nina ston 00:00:00 00:00:00 day [facility]regational Sex [birth year] [place] 00:00:00 00:00:00 Congregational Smoking Status Start Date Stop Date Source Current every day smoker 2018-07-03 00:00:00 [place] [facility] Medications Ordered Filled Start Stop Current Ordering Indication Dosage Frequency Signature Comments Components Source Medication Medication Date Date Medication? Clinician (SIG) Name Name gabapentin Yes 300mg [id number] Take 300 Gil (NEURONTIN) 2-18 [id number] mg by M ethodi 300 mg 12:27: 3D mouth 3 st capsule 18 (three) times a day. OXcarbazepi Yes 600mg Q.[id number] Take 600 Gil ne 2-18 [id number] mg by Methodi (TRILEPTAL) 12:27: 3D mouth 3 st 600 MG 18 (three) tablet times a day. HYDROcodone Yes 1{tbl} Q6H Take 1 [place] -acetaminop 2-18 tablet by Met apple godinez (NORCO) 12:27: mouth st 10-325 mg 18 every 6 per tablet (six) hours. cholecalcif Yes 2000U QD Take 2,000 Gil irvin, 2-18 Units by Methodi vitamin D3, 12:27: mouth st (VITAMIN 18 daily. D3) 2,000 unit capsule capsule Vicodin No Larry 2 tab, Me moria 5/500 oral 01-25 r Chiquis Foster Route: PO, l tablet 00:10: Drug Form: Sonia nn 00 TAB, ONCE, Start date: 01/24/11 19:10:00, Stop date: 01/24/11 19:10:00 Flomax 0.4 Yes Larry 0.4 mg, 1 Memoria mg oral 01-24 r J Cristian cap, PO, l capsule 23:21: Daily, 30 Sonia nn 19 cap, Substituti on Allowed, CAP [place]albin Yes Larry 1 tab, PO, Memoria 10/325 oral 01-24 r J Cristian Q4-6H, l tablet 23:20: PRN, 24 [place] 58 tab, as needed for pain, Substituti on Allowed, Maintenanc e NS (Bolus) No Larry 1,000 mL, Memoria IV 1000 mL 01-24 r Chiquis Foster Rate: l 21:03: 1,000 Rolo 00 ml/hr, Infuse over: 1 hr, Route: IV, Total Volume: 1,000, Priority: STAT, Start date: 01/24/11 16:03:00, Duration: 1 doses or times, Stop date: 01/24/11 17:02:00, Bolus DoseBolus Dose Zofran No Larry 4 mg, 2 Me moria 01-24 r Chiquis Cristian mL, Route: l 21:03: IVP, Drug [place] 00 form: INJ, ONCE, Priority: STAT, Start date: 01/24/11 16:03:00, Stop date: 01/24/11 16:03:00 Dilaudid No Larry 1 mg, 0.5 Memoria 01-24 r Chiquis Foster mL, Route: l 21:03: IV, Drug [place] 00 form: INJ, ONCE, Priority: STAT, Start date: 01/24/11 16:03:00, Stop date: 01/24/11 16:03:00 Saline No Larry 5 ml, Bradley jose Flush 0.9% 01-24 r Chiquis Foster Route: l 20:10: IVP, Drug [place] 00 Form: INJ, PRN, PRN Line Flush, Start date: 01/24/11 15:10:00, Duration: 24 hr, Stop date: 01/25/11 15:09:00 aspirin 325 No Ed 325 mg, 1 Memoria mg tablet 01-24 Tee tab, l 20:03: Yeaton Route: PO, Sonia nn 00 Drug form: TAB, ONCE, Priority: STAT, Start date: 01/24/11 15:03:00, Stop date: 01/24/11 15:03:00 Saline No Ed 5 ml, Memoria Flush 0.9% 01-24 Tee Route: l 20:03: Yeaton IVP, Drug Bernard n 00 Form: INJ, PRN, PRN Line Flush, Start date: 01/24/11 15:03:00, Duration: 30 day, Stop date: 02/23/11 15:02:00 Unknown Yes Substituti Bradley jose Home 01-24 on Allowed l Medication 19:48: [place] 44 Vicodin Yes Substituti Bradley jose 5/500 oral 01-24 on l tablet 19:48: Allowed, [place] 08 Maintenanc e Levsin SL Yes Wood 0.125 mg, Memoria 0.125 mg 01-21 Sethi II 1 tab, SL, l sublingual 03:27: Q8H, 90 Herm ming tablet 11 tab, Substituti on Allowed, TAB Levsin SL Yes Wood 0.125 mg, Memoria 0.125 mg 01-21 Sethi II 1 tab, SL, l sublingual 02:40: Q8H, 90 Herm ming tablet 35 tab, Substituti on Allowed, TAB ondansetron No Ajita 4 mg, Bradley jose 01-21 Rubi Route: l 00:18: Larios IVP, Drug [place] form: INJ, ONCE, Priority: STAT, Start date: 01/20/11 19:18:00, Stop date: 01/20/11 19:18:00 Dilaudid No Ajita 2 mg, Memoria 01-20 Rubi Route: IV, l 22:55: Larios ONCE, [place] 00 Priority: STAT, Start date: 01/20/11 17:55:00, Stop date: 01/20/11 17:55:00 hydromorpho No Ajita 1 mg, Bradley jose ne 01-20 Rubi Route: l 22:54: Larios IVP, ONCE, [place] Priority: STAT, Start date: 01/20/11 17:54:00, Stop date: 01/20/11 17:54:00 morphine No Ajita 4 mg, 1 Memor ia Sulfate 01-20 Rubi mL, Route: l 21:44: Ric IVP, Drug Rolo 00 form: INJ, ONCE, Priority: STAT, Start date: 01/20/11 16:44:00, Stop date: 01/20/11 16:44:00 Sodium No Ajita 500 mL, Memoria Chloride 01-20 Rate: 500 l 0.9% 21:44: Larios ml/hr, Rolo (Bolus) IV 00 Infuse 500 mL over: 1 hr, Route: IV, Total Volume: 500, Bolus Dose, Priority: STAT, Start date: 01/20/11 16:44:00, Duration: 1 doses or times, Stop date: 01/20/11 17:43:00 Brilinta Brilinta Yes Jesse not [facility] [place] [facility] TraMADol TraMADol Yes Jesse not [facility] HCl ER HCl ER [place] [facility] Metoprolol Metoprolol Yes Jesse not [facility] Succinate Succinate [place] [facility] Isosorbide Isosorbide Yes Jesse not [facility] Dinitrate Dinitrate [place] [facility] Oxcarbazepi Oxcarbazepi Yes Jesse not [facility] ne ne [place] [facility] Prasugrel Prasugrel Yes Jesse not [facility] HCl HCl [place] [facility] Meclizine Meclizine Yes Jesse not [facility] HCl HCl [place] [facility] Enalapril Enalapril Yes Jesse not [facility] Maleate Maleate [place] [facility] Sodium Sodium Yes Jesse not [facility] Chloride Chloride [place] [facility] Pantoprazol Pantoprazol Yes Jesse not [facility] e Sodium e Sodium [place] [facility] Hydrocodone Hydrocodone Yes Jesse not [facility] -Acetaminop -Acetaminop [place] [facility] Metoprolol Metoprolol Yes Jesse not [facility] Tartrate Tartrate [place] [facility] Atorvastati Atorvastati Yes Jesse not [facility] n Calcium n Calcium [place] [facility] Gabapentin Gabapentin Yes Jesse not [facility] [facility] Vital Signs Vital Name Observation Time Observation Value Comments Source Systolic (mm Hg) 2011-01-25 00:06:00 Bradley rial [place] Diastolic (mm Hg) 2011-01-25 00:06:00 [facility] orial Rolo Peripheral Pulse Rate 2011-01-25 00:06:00 [facility] [place] Temperature Oral (F) 2011-01-25 00:06:00 97.7 F [facility] [place] Respitory Rate 2011-01-25 00:06:00 Memori al [place] Height 2011-01-24 19:40:00 175.26 cm [facility] [place] Weight 2011-01-24 19:40:00 [facility] Rolo Temperature Oral (F) 2011-01-24 19:40:00 97.4 F [facility] [place] Respitory Rate 2011-01-24 19:40:00 Memori al [place] Systolic (mm Hg) 2011-01-24 19:40:00 Bradley rial [place] Peripheral Pulse Rate 2011-01-24 19:40:00 Memorial [place] Diastolic (mm Hg) 2011-01-24 19:40:00 Mem orial [place] Systolic (mm Hg) 2011-01-21 03:33:00 Bradley rial [place] Diastolic (mm Hg) 2011-01-21 03:33:00 Mem orial [place] Peripheral Pulse Rate 2011-01-21 03:33:00 Memorial [place] Temperature Oral (F) 2011-01-21 03:33:00 97.4 F [facility] [place] Respitory Rate 2011-01-21 03:33:00 Memori al [place] Systolic (mm Hg) 2011-01-21 00:57:00 Bradley rial [place] Respitory Rate 2011-01-21 00:57:00 Memori al [place] Diastolic (mm Hg) 2011-01-21 00:57:00 Mem orial [place] Peripheral Pulse Rate 2011-01-21 00:57:00 [facility] R[place] Temperature Oral (F) 2011-01-20 22:07:00 98.0 F [facility] [place] Respitory Rate 2011-01-20 22:07:00 Memori al [place] Peripheral Pulse Rate 2011-01-20 22:07:00 [facility] [place] Diastolic (mm Hg) 2011-01-20 22:07:00 Mem orial [place]olo Systolic (mm Hg) 2011-01-20 22:07:00 Bradley rial [place] Height 2011-01-20 17:27:00 175.26 cm [facility] [place] Weight 2011-01-20 17:27:00 [facility] [place] Temperature Oral (F) 2011-01-20 17:27:00 97.0 F Memorial R[place] Procedures This patient has no known procedures. Plan of Care Planned Activity Planned Date Details Comments Source Future Scheduled 2020-12-14 INFLUENZA VACCINE [place] [facility] Test 00:00:00 [code = INFLUENZA VACCINE] Future Scheduled 2001 COLONOSCOPY SCREENING [place] [facility] Test 00:00:00 [code = COLONOSCOPY SCREENING] Future Scheduled 2001 SHINGLES VACCINES (#1) [place] [facility] Test 00:00:00 [code = SHINGLES VACCINES (#1)] Future Scheduled 1969 Hepatitis C screening [place] [facility] Test 00:00:00 (procedure) [code = 917892219] Future Scheduled 1967 COVID-19 VACCINE (1) Ninamarin holguin [facility]regational Test 00:00:00 [code = COVID-19 VACCINE (1)] Future Scheduled 1957 65+ PNEUMOCOCCAL Gil [facility]regational Test 00:00:00 VACCINE (1 of 2 - PPSV23) [code = 65+ PNEUMOCOCCAL VACCINE (1 of 2 - PPSV23)] Encounters Start End Encounter Admission Attending Care Care Encounter Source Date/Time Date/Time Type Type Clinicians Facility Department ID 2019-04-03 2019-04-03 [facility] [id number] [address] 11:00[facility]00 11[facility] 2019-03-01 2019-03-01 [facility] [place] [id number] 09:00[facility]00 09:00[facility]00 [facility] ent Clinics 2018-02-02 2018-02-02 Inpatient LOLIS SAUNDERS [facility] TELE [id number] [place] 17:59:[facility]:55[facility] Results Test Description Test Time Test Comments Results Result Comments Source CHEMISTRY 2011-01-24 127.0 Memorial Sonia nn 20:11:00 CHEMISTRY 2011-01-24 63.0 Memorial Sonia nn 20:11:00 CHEMISTRY 2011-01-24 74.0 Memorial Sonia nn 20:11:00 CHEMISTRY 2011-01-24 1.2 Memorial S[place] nn 20:11:00 CHEMISTRY 2011-01-24 <0.02 Memorial Sonia nn 20:11:00 CHEMISTRY 2011-01-24 11.0 Memorial S[place] nn 20:11:00 CHEMISTRY 2011-01-24 0.2 Memorial Sonia nn 20:11:00 CHEMISTRY 2011-01-24 84.0 Memorial Sonia nn 20:11:00 CHEMISTRY 2011-01-24 16.0 Memorial Sonia nn 20:11:00 CHEMISTRY 2011-01-24 3.7 Memorial Sonia nn 20:11:00 CHEMISTRY 2011-01-24 20:11:00 Test Item Value Reference Range Interpretation Comme nts A/G Ratio (test code = A/G Ratio) 0.9 1 0.7-1.6 N [facility] CenterBzjtjojEPVANMRAL0225-49-62 20:11:003.9[facility]ann[facility]MI[facility]Y 2011-01-24 20:11:00 Test Item Value Reference Range Interpretation Comments B/C Ratio (test code = B/C Ratio) 13.0 1 6-25 N [facility] CenterKsippprDJGADHQUY7802-15-30 20:11:0013.7[facility] HermannCHEMISTRY 2011-01-24 20:11:64847.0[facility] NfzkpqpHZXPPNABI1977-19-97 20:11:001.6[facility] KrwjklrURGJVFMWL8431-87-05 20:11:0020.0[facility] LdnzkmkCQAVPDURD9712-71-58 20:11:0097.0[facility] JxoiiwzZVNPFYFDO3125-47-23 20:11:003.7[facility] [place] TJVHFCTBS6918-85-20 20:11:007.6[facility] WntyatiULYEVIXQQ0989-06-55 20:11:009.1 [facility] KztdsalXQYMOTJJV4409-86-68 20:11:0025.0[facility] HermannCHEMISTRY 2011-01-24 20:11:18215.0[facility] TtgvntqWUDOBPFED9271-66-95 20:11:00 Test Item Value Reference Range Interpretation Comments CK MB Index (test 1.6 1 See_Comment N [Automate d message] The code = CK MB Index) system w [facility] generated this result transmit rosmery reference range : <=2.5. The reference range was not used to interpr et this result as jovanni l/abnormal. [facility] CenterAroyzpcCMTUFIXWXQ5690-72-04 20:11:00 Test Item Value Reference Range Interpretation Comments PTT (test code = PTT) 30.9 s 22.9-35.8 N [facility]zezjkaKNOSUKTBNI7235-64-48 20:11:00 Test Item Value Reference Range Interpretation Comments PT (test code = PT) 12.0 s 12.0-14.7 N [facility] CenterGmuucgzXPCXLZXCAS3003-90-32 20:11:00 Test Item Value Reference Range Interpretation Comments INR (test code = INR) 0.88 1 0.85-1.17 N [facility] CenterOqhtterADUEZUZOVT3221-72-30 20:11:00 Test Item Value Reference Range Interpretation Comments MCH (test code = MCH) 32.2 pg 27.0-31.0 H [facility] VftnyqoLYDVXBJXVS2981-20-50 20:11:0094.6[facility] HermannHEMATOLOGY 2011-01-24 20:11:0013.4[facility] GglhszqTEUNPVNJOC4196-57-14 20:11:0034.0[facility] WcdhvvxBSRYZGWNNN4049-62-86 20:11:007.5[facility] NboawdnVSWNPWRSWV8074-76-44 20:11:36198.0[facility] CxddlvqHAQIZRWXIC4717-61-03 20:11:0013.4[facility] [place] VDQLKDAGOR9584-03-29 20:11:004.16[facility] OtriasxDZEQDKLQBS4036-70-08 20:11:00 39.4[facility] NpfznjaYWAHPHXTRO6631-24-33 20:11:005.5[facility] HermannHEMATOLOGY 2011-01-24 20:11:0066.1[facility] AufiwziGCQWDTKHTB7041-26-75 20:11:007.5[facility] WbltuezKLDSKHJUOM9512-07-33 20:11:0022.5[facility] VqkmvnbFLCJAZTFWB4038-60-47 20:11:003.1[facility] EybbbjqOVJCDMLRQU3698-76-98 20:11:000.4[facility] [place] OUCXNPIWJT5829-10-39 20:11:001.2[facility] JlchrpaFSGGYRCELM9626-18-76 20:11:000.2 Memorial FefoisnUHWMCKQYAX5187-71-44 20:11:000.8[facility] HermannHEMATOLOGY 2011-01-24 20:11:003.6[facility] QxptcykYVUDLALGOU9912-80-16 20:11:000.0[facility] OosqcdkUWULJHNSGL2017-85-69 20:00:00Large *ABN*(01/24/2011 15:00:00) ??[facility] AaoismmWTRIIPZJJL7263-25-84 20:00:00 Test Item Value Reference Range Interpretation Comments UA pH (test code = UA pH) 7.0 1 5.0-8.0 N [facility] CenterDlodznxHTWFNAQRTH1195-15-18 20:00:00>=300 mg/dL *ABN*(01/24/2011 15:00:00) ??[facility] CenterImpjhagUHEBBSVGZC4393-48-99 20:00:00Red *ABN*(01/24/2011 15:00:00) ??[facility] CenterOqgzjbfXBUPPVCZYM6482-97-18 20:00:00Cloudy *ABN*(01/24/2011 15:00:00) ??[facility] CenterCwydtfkHHWAYPZIKV9293-57-79 20:00:00 Test Item Value Reference Range Interpretation Comments UA Spec Grav (test code = UA Spec 1.02 1 N Grav) [facility] CenterYyhobnePDYXTDQONN2638-47-70 20:00:000-2 /HPF (01/24/2011 15:00:00) ?? [facility] CenterZawshwtTGISFBIADN9891-20-25 20:00:00>100 /HPF *ABN*(01/24/2011 15:00:00) ??[facility] CenterDwtexblUBNHDCIHME4772-39-83 20:00:00Occasional /HPF (01/24/2011 15:00:00) ??[facility] CenterSyikdcmIBTSKTYLND7370-28-63 20:00:00Negative (01/24/2011 15:00:00) ??[facility] CenterBupdoleNDJQHADRTD8602-10-71 20:00:00Moderate *ABN*(01/24/2011 15:00:00) ??[facility] CenterOzxivwlFXLGUVGFWL3814-67-12 20:00:00Rare /LPF (01/24/2011 15:00:00) ??[facility] CenterEdayuxeVSCBOLJBTZ6768-06-04 20:00:000.2 [facility] CenterVyrpmmkYBALRYWDZC0586-56-28 20:00:00Negative (01/24/2011 15:00:00) ?? [facility] CenterJtbfueeLVPVSZCHTT3639-46-90 20:00:00Negative *NA*(01/24/2011 15:00:00) ??[facility] CenterUizvycrUOSBRURCQU0423-59-68 20:00:00Negative *NA*(01/24/2011 15:00:00) ??[facility] SnabmgnHHIXJYZDED6389-17-03 22:41:00Negative *NA*(01/20/2011 17:41:00) ??[facility] ZbjhobnXJOOJUONZ0773-89-45 22:30:009.1 Memorial XzijixpXPDTHHQXN4392-09-01 22:30:89094.0[facility] HermannCHEMISTRY 2011-01-20 22:30:001.3[facility] JiydcplLTCRGHEOG0350-86-26 22:30:0090.0[facility] QhvmipaLOHWBDXPL2769-65-99 22:30:0014.0[facility] ZnhgikdZCCOGKWRO6801-35-72 22:30:004.3[facility]orial MxsvhsnEIMYCZZPJ6988-69-39 22:30:0028.0[facility] Rolo GWJDGFEEN0466-02-69 22:30:0097.0[facility]orial BfnxrpyPLAQVYATYP0030-82-70 22:30:008.1 Memorial DnkabqrVTHVBMHMSC3530-74-79 22:30:0034.0[facility] HermannHEMATOLOGY 2011-01-20 22:30:00 Test Item Value Reference Range Interpretation Comments MCH (test code = MCH) 31.8 pg 27.0-31.0 H Memorial PqvxttaWBXRPXDRDZ2465-59-76 22:30:0012.5[facility] HermannHEMATOLOGY 2011-01-20 22:30:06804.0[facility] AhvicqwQXHQIVEJWL3294-08-43 22:30:0014.4 Memorial HepbqkfDLTECYTNWC3993-40-68 22:30:0093.6[facility] HermannHEMATOLOGY 2011-01-20 22:30:0042.2[facility] ZmtgephCBGXBFSXVG9180-43-64 22:30:005.4[facility] ZzewkgtSJDYKMWSAL3682-96-69 22:30:004.51[facility] FefmxjvFUFIZTGOXK0467-18-40 22:30:001.6[facility] CklvaikGSFXOQLRXW6785-36-36 22:30:003.5[facility] Rolo QMCUTNDVDC2022-47-34 22:30:000.4[facility] WzcvglxDYGHWGPVYZ1356-90-32 22:30:000.2 Memorial QquxvzoPFXPQDCFEI8533-89-76 22:30:000.1[facility] HermannHEMATOLOGY 2011-01-20 22:30:00Normal (01/20/2011 17:30:00) ??[facility] HermannHEMATOLOGY 2011-01-20 22:30:008.1[facility] WgidrrfIVHVYMBLLI1718-19-81 22:30:003.0[facility] BjxiifuSQWUWKLZBZ0954-01-84 22:30:0022.3[facility] WzvdtudTGLONVKIOG8154-28-37 22:30:001.2[facility] LysmfpgOBAEWNKLDN1575-61-03 22:30:00Normal (01/20/2011 17:30:00) ??[facility] CenterCcmcwdcBCITGVMNDH6011-71-42 22:30:0065.0[facility] [place] GTXFBHZUFG9358-14-01 22:30:73657 mg/dL *ABN*(01/20/2011 17:30:00) ??[facility] CenterChxlgzdIWQWDXRHMU6018-73-29 22:30:00 Test Item Value Reference Range Interpretation Comments UA pH (test code = UA pH) 7.0 1 5.0-8.0 N [facility] CenterJvhzhlmYDIAMRXKEI4962-96-57 22:30:00Negative (01/20/2011 17:30:00) ?? [facility] CenterTfzjahsFIJCRARHSZ7064-59-90 22:30:00Negative *NA*(01/20/2011 17:30:00) ??[facility] CenterLknhpwrGTZWDDFIRA9164-09-80 22:30:00Negative (01/20/2011 17:30:00) ?? [facility] CenterQdhuckwOFTZZBXEAY7887-60-34 22:30:00 Test Item Value Reference Range Interpretation Comments UA Spec Grav (test code = UA Spec 1.02 1 N Grav) [facility] CenterMxguqnfZVUAFZXMBL0226-63-56 22:30:00Cloudy *ABN*(01/20/2011 17:30:00) ??[facility] CenterWzjzqldGUEYFKUEOX4921-28-73 22:30:00Red *ABN*(01/20/2011 17:30:00) ?? [facility] CenterYnqqfbfCIZIJZYPTZ7606-33-10 22:30:00Moderate *ABN*(01/20/2011 17:30:00) ??[facility] MgucdlaHEQSCEZEED4140-61-45 22:30:00Negative (01/20/2011 17:30:00) ?? Memorial BpzukxvDIQVCOIUDK8518-22-90 22:30:000.2[facility] HermannURINALYSIS 2011-01-20 22:30:00Large *ABN*(01/20/2011 17:30:00) ??[facility] HermannURINALYSIS 2011-01-20 22:30:00Occasional /HPF *ABN*(01/20/2011 17:30:00) ??[facility] [id number] 22:30:00None Seen (01/20/2011 17:30:00) ??[facility] [id number] 22:30:00Rare /LPF (01/20/2011 17:30:00) ??[facility] [id number] 22:30:000-2 /HPF (01/20/2011 17:30:00) ??[facility] [id number] 22:30:00Occasional /HPF (01/20/2011 17:30:00) ??[facility] [id number] 22:30:00>100 /HPF *ABN*(01/20/2011 17:30:00) ?? [facility] KhngmftITMFXVXMH1707-45-02 22:30:0014.3[facility]
[2020-09-28 13:17] LABS: Protime INR 1.05
[2020-09-28 13:19] LABS: Absolute Lymphocytes (CBC) 0.9 K/uL (0.7-4.9); Basophils % 1.1 % (0-1.3); Hematocrit 34.9 % (39.6-49.0); Lymphocytes % 16.8 % (15.3-44.8); MPV 7.1 fL (7.6-11.3); RBC Red Blood Cell Count 3.62 M/uL (4.33-5.43)
[2020-09-28] MEDS ORDERED: NA CHLORIDE 0.9% 1,000 ML ONE (13:26)
[2020-09-28 13:31] LABS: ALT/SGPT 13 U/L (12-78); AST/SGOT 22 U/L (15-37); Albumin 3.9 g/dL (3.4-5.0); Alkaline Phosphatase 132 U/L (45-117); BUN Blood Urea Nitrogen 13 mg/dL (7-18); Bicarbonate 27 mmol/L (21-32); Bilirubin Direct 0.1 mg/dL (0-0.2); Bilirubin Total 0.3 mg/dL (0.2-1.0); Glucose Level 91 mg/dL (74-106); Magnesium 1.8 mg/dL (1.8-2.4); NT PRO-BNP 1022 pg/mL (<125); Potassium 3.7 mmol/L (3.5-5.1); Protein, Total 7.7 g/dL (6.4-8.2); Sodium Level 126 mmol/L (136-145); Troponin (Emerg Dept Use Only) < 0.02 ng/mL (0.0-0.045)
--- NOTE | 2020-09-28 13:47 | RAD REPORT ---
EXAM DESCRIPTION: RAD - Chest Single View - 09/28/2020 1:32 pm CLINICAL HISTORY: CONGESTION, altered mental status COMPARISON: Portable February 2019 TECHNIQUE: AP portable chest image was obtained 09/28/2020 1:32 pm . FINDINGS: Patient has a prominent baseline interstitial pattern that matches comparison. No peripher al mass or consolidation. Small granulomata noted. There is calcification of the pleura at the left a pex. Trachea is midline. Heart and vasculature are normal. No measurable pleural effusion and no pneu mothorax. No acute bony abnormality seen. No acute aortic findings. Patient has normal variant coloni c interposition under the right hemidiaphragm. IMPRESSION: Patient has chronic interstitial lung disease similar to comparison. No acute finding.
--- NOTE | 2020-09-28 14:48 | EDPHYS ---
Physician Documentation [facility] Name: Jean Pierre Martinez Age: 70 yrs Sex: Male : 1950 Arrival Date: 09/28/2020 Time: 12:35 Bed 28 Private MD: ED Physician Alise Killian HPI: 09/28 14:45 This 70 yrs old Male presents to ER via EMS with complaints of syncope. ma2 14:45 Onset: The symptoms/episode began/occurred suddenly, 2 hour(s) ago. Associated signs ma2 and symptoms: Pertinent negatives: headache, visual changes. Severity of symptoms: At its worst the blood pressure was moderate, in the emergency department the blood pressure is now normal. The blood pressure problem is resolved. The patient has experienced similar episodes in the past. Historical: - Allergies: 12:48 Codeine; zb - Home Meds: 12:48 gabapentin 300 mg oral cap 1 cap 4 times a day [Active]; oxcarbazepine 600 mg oral tab zb 1 tab every 8 hours [Active]; hydrocodone-acetaminophen 10-325 mg Oral tab 1 tab every 6 hours [Active]; tramadol 300 mg Oral TM24 1 tab once daily [Active]; meclizine 25 mg Oral chew 1 tab 2 times per day [Active]; pantoprazole 40 mg oral TbEC 1 tab once daily [Active]; atorvastatin 40 mg oral tab 1 tab once daily [Active]; isosorbide mononitrate 20 mg Oral tab 1 tab [Active]; metoprolol tartrate 50 mg Oral tab 1 tab once daily [Active]; BRILINTA 90 mg oral tab 1 tab 2 times per day [Active]; - PMHx: 12:48 GERD; Hypertension; Kidney stones; Myocardial infarction; zb - PSHx: 12:48 Heart stents; right hip surgery; zb - Immunization history:: Adult Immunizations up to date. - Social history:: Smoking status: Patient reports the use of cigarette tobacco products, smokes one-half pack cigarettes per day, Patient/guardian denies using alcohol, street drugs, The patient lives with family. - Family history:: not pertinent. ROS: 14:45 Constitutional: Negative for fever, chills, and weight loss. ma2 14:45 All other systems are negative. Exam: 14:45 Constitutional: This is a well developed, well nourished patient who is awake, alert, ma2 and in no acute distress. Eyes: Pupils equal round and reactive to light, extra-ocular motions intact. Lids and lashes normal. Conjunctiva and sclera are non-icteric and not injected. Cornea within normal limits. Periorbital areas with no swelling, redness, or edema. ENT: Nares patent. No nasal discharge, no septal abnormalities noted. Tympanic membranes are normal and external auditory canals are clear. Oropharynx with no redness, swelling, or masses, exudates, or evidence of obstruction, uvula midline. Mucous membranes moist. Neck: Trachea midline, no thyromegaly or masses palpated, and no cervical lymphadenopathy. Supple, full range of motion without nuchal rigidity, or vertebral point tenderness. No Meningismus. Chest/axilla: Normal chest wall appearance and motion. Nontender with no deformity. No lesions are appreciated. Cardiovascular: Regular rate and rhythm with a normal S1 and S2. No gallops, murmurs, or rubs. Normal PMI, no JVD. No pulse deficits. Respiratory: Lungs have equal breath sounds bilaterally, clear to auscultation and percussion. No rales, rhonchi or wheezes noted. No increased work of breathing, no retractions or nasal flaring. Abdomen/GI: Soft, non-tender, with normal bowel sounds. No distension or tympany. No guarding or rebound. No evidence of tenderness throughout. Back: No spinal tenderness. No costovertebral tenderness. Full range of motion. MS/ Extremity: Pulses equal, no cyanosis. Neurovascular intact. Full, normal range of motion. Neuro: Awake and alert, GCS 15, oriented to person, place, time, and situation. Cranial nerves II-XII grossly intact. Motor strength 5/5 in all extremities. Sensory grossly intact. Cerebellar exam normal. Normal gait. Psych: Awake, alert, with orientation to person, place and time. Behavior, mood, and affect are within normal limits. Vital Signs: 12:38 BP 132 / 74; Pulse 74; Resp 16; Temp 97.7; Pulse Ox 95% on R/A; Weight 63.5 kg; Height zb 5 ft. 9 in. (175.26 cm); Pain 4/10; 13:30 BP 156 / 85; Pulse 71; Resp 18; Pulse Ox 100% on R/A; zb 14:51 BP 179 / 87; Pulse 76; Resp 18; Pulse Ox 98% on R/A; zb 17:09 BP 155 / 97; Pulse 78; Resp 16; Pulse Ox 100% on R/A; zb 18:45 BP 164 / 89; Pulse 80; Resp 17; Pulse Ox 100% on R/A; zb 19:58 BP 180 / 86; Pulse 81; Resp 16; Pulse Ox 100% on R/A; zb 12:38 Body Mass Index 20.67 (63.50 kg, 175.26 cm) zb MDM: 12:35 Patient medically screened. ma2 14:45 Differential diagnosis: syncope, drug overdose, dehydration hyponatremia. Data ma2 reviewed: vital signs, nurses notes. Counseling: I had a detailed discussion with the patient and/or guardian regarding: the historical points, exam findings, and any diagnostic results supporting the discharge/admit diagnosis, the presence of at least one elevated blood pressure reading (>120/80) during this emergency department visit, the need for further work-up and treatment in the hospital. Response to treatment: the patient's symptoms have markedly improved after treatment. 09/28 12:40 Order name: Basic Metabolic Panel; Complete Time: 14: [facility] 09/28 12:40 Order name: CBC with Diff; Complete Time: 14: [facility] 09/28 12:40 Order name: LFT's; Complete Time: 14: [facility] 09/28 12:40 Order name: Magnesium; Complete Time: 14: [facility] 09/28 12:40 Order name: NT PRO-BNP; Complete Time: 14: [facility] 09/28 12:40 Order name: PT-INR; Complete Time: 14: [facility] 09/28 12:40 Order name: Troponin (emerg Dept Use Only); Complete Time: 14:03 [facility] 09/28 12:40 Order name: XRAY Chest (1 view); Complete Time: 14:03 [facility] 09/28 12:40 Order name: EKG; Complete Time: 12:41 [facility] 09/28 19:26 Order name: SARS-COV-2 RT PCR EDMS 09/28 12:40 Order name: Cardiac monitoring; Complete Time: 13:23 [facility] 09/28 12:40 Order name: EKG - Nurse/Tech; Complete Time: 13: nm2 09/28 12:40 Order name: IV Saline Lock; Complete Time: : nm2 09/28 12:40 Order name: Labs collected and sent; Complete Time: : nm2 09/28 12:40 Order name: O2 Per Protocol; Complete Time: : nm2 09/28 12:40 Order name: O2 Sat Monitoring; Complete Time: 13:54 ma2 Administered Medications: 13:23 Drug: NS 0.9% 1000 ml Route: IV; Rate: 1 bolus; Site: left hand; zb 16:00 Follow up: Response: No adverse reaction; IV Status: Completed infusion; IV Intake: zb 1000ml 14:37 Drug: Wilson (HYDROcodone-acetaminophen) 5 mg-325 mg 1 tabs {Note: RASS 0.} Route: PO; zb 17:09 Follow up: Response: No adverse reaction; Pain is decreased; RASS: Alert and Calm (0) zb 18:45 Drug: Wilson (HYDROcodone-acetaminophen) 10 mg-325 mg 1 tabs {Note: RASS 0.} Route: PO; zb 19:15 Follow up: Response: No adverse reaction; Pain is decreased; RASS: Alert and Calm (0) zb Disposition: 09/28/20 14:47 Hospitalization ordered by Rafael Bolton for Observation. Preliminary diagnosis are Syncope and collapse, Hypo-osmolality and hyponatremia. - Bed requested for Telemetry/MedSurg (observation). - Status is Observation. rr5 - Condition is Stable. - Problem is new. - Symptoms are unchanged. Signatures: Dispatcher [employer] EDFL Arianna Martino RN RN aa5 Jessie Goldstein RN RN Alise Killian MD MD ma2 Felix Alvarez RN RN rr5 Alicia Saeed RN RN zb Corrections: (The following items were deleted from the chart) 15:17 14:47 Hospitalization Ordered by Rafael Bolton DO for Observation. Preliminary aa5 diagnosis is Syncope and collapse; Hypo-osmolality and hyponatremia. Bed requested for Telemetry/MedSurg (Inpatient). Status is Observation. Condition is Stable. Problem is new. Symptoms are unchanged. ma2 18:04 15:17 CORONAVIRUS+MR.LAB.BRZ ordered. EDMS EDMS 20:22 15:17 09/28/2020 14:47 Hospitalization Ordered by Rafael Bolton DO for Observation. cg Preliminary diagnosis is Syncope and collapse; Hypo-osmolality and hyponatremia. Bed requested for [facility] ER HOLD. Status is Observation. Condition is Stable. Problem is new. Symptoms are unchanged. aa5 21:41 20:22 09/28/2020 14:47 Hospitalization Ordered by Rafael Bolton DO for Observation. rr5 Preliminary diagnosis is Syncope and collapse; Hypo-osmolality and hyponatremia. Bed requested for Telemetry/MedSurg (observation). Status is Observation. Condition is Stable. Problem is new. Symptoms are unchanged. cg
--- NOTE | 2020-09-28 14:48 | ER ---
Nurse's Notes [facility] Name: Jean Pierre Martinez Age: 70 yrs Sex: Male : 1950 Arrival Date: 09/28/2020 Time: 12:35 Bed 28 Private MD: Diagnosis: Syncope and collapse;Hypo-osmolality and hyponatremia Presentation: 09/28 12:38 Chief complaint: EMS states: Around 1130 patient's son called found patient in a zb recliner but he was unable to arouse. EMS got on seen and patient was still difficult to arouse but eventually woke up on his own. VSS. Patient stated he does take pain medication has had tramadol and gabapentin. Patient also states this has happen before. denies chest pain or SOB. Coronavirus screen: At this time, the client does not indicate any symptoms associated with coronavirus-19. Ebola Screen: No symptoms or risks identified at this time. Initial Sepsis Screen: Does the patient meet any 2 criteria? No. Patient's initial sepsis screen is negative. Does the patient have a suspected source of infection? No. Patient's initial sepsis screen is negative. Risk Assessment: Do you want to hurt yourself or someone else? Patient reports no desire to harm self or others. Onset of symptoms was September 28, 2020. Care prior to arrival: EKG was negative. 12:38 Acuity: BILL 3 zb 12:38 Method Of Arrival: EMS[facility] Triage Assessment: 12:38 General: Appears in no apparent distress. comfortable, Behavior is calm, cooperative. zb Pain: Complains of pain in right leg Pain radiates to right leg Pain currently is 8 out of 10 on a pain scale. Quality of pain is described as aching, Pain began years ago. Neuro: Level of Consciousness is awake, alert, obeys commands, Oriented to person, place, time, situation. Cardiovascular: Patient's skin is warm and dry. Respiratory: Airway is patent Respiratory effort is even, unlabored, Respiratory pattern is regular, symmetrical. GI: Abdomen is flat. Derm: Skin is intact, is healthy with good turgor, Skin is dry, Skin is normal, Skin temperature is warm. Musculoskeletal: Range of motion: intact in all extremities. Historical: - Allergies: 12:48 Codeine; zb - Home Meds: 12:48 gabapentin 300 mg oral cap 1 cap 4 times a day [Active]; oxcarbazepine 600 mg oral tab zb 1 tab every 8 hours [Active]; hydrocodone-acetaminophen 10-325 mg Oral tab 1 tab every 6 hours [Active]; tramadol 300 mg Oral TM24 1 tab once daily [Active]; meclizine 25 mg Oral chew 1 tab 2 times per day [Active]; pantoprazole 40 mg oral TbEC 1 tab once daily [Active]; atorvastatin 40 mg oral tab 1 tab once daily [Active]; isosorbide mononitrate 20 mg Oral tab 1 tab [Active]; metoprolol tartrate 50 mg Oral tab 1 tab once daily [Active]; BRILINTA 90 mg oral tab 1 tab 2 times per day [Active]; - PMHx: 12:48 GERD; Hypertension; Kidney stones; Myocardial infarction; zb - PSHx: 12:48 Heart stents; right hip surgery; zb - Immunization history:: Adult Immunizations up to date. - Social history:: Smoking status: Patient reports the use of cigarette tobacco products, smokes one-half pack cigarettes per day, Patient/guardian denies using alcohol, street drugs, The patient lives with family. - Family history:: not pertinent. Screenin:55 Abuse screen: Denies threats or abuse. Denies injuries from another. Nutritional zb screening: No deficits noted. Tuberculosis screening: No symptoms or risk factors identified. Fall Risk No fall in past 12 months (0 pts). No secondary diagnosis (0 pts). IV access (20 points). Ambulatory Aid- None/Bed Rest/Nurse Assist (0 pts). Gait- Normal/Bed Rest/Wheelchair (0 pts) Mental Status- Oriented to own ability (0 pts). Total Stone Fall Scale indicates No Risk (0-24 pts). Assessment: 13:57 Reassessment: family at bedside. patient provided a PO fluids and food. zb 14:05 Reassessment: ECP at bedside. zb 14:51 Reassessment: Patient appears in no apparent distress at this time. Patient and/or zb family updated on plan of care and expected duration. Pain level reassessed. Patient is alert, oriented x 3, equal unlabored respirations, skin warm/dry/pink. no changes at this time. IV fluids continuing to infuse. 16:00 Reassessment: Patient appears in no apparent distress at this time. Patient and/or zb family updated on plan of care and expected duration. Pain level reassessed. Patient is alert, oriented x 3, equal unlabored respirations, skin warm/dry/pink. 17:09 Reassessment: Patient appears in no apparent distress at this time. Patient and/or zb family updated on plan of care and expected duration. Pain level reassessed. Patient is alert, oriented x 3, equal unlabored respirations, skin warm/dry/pink. 18:37 Reassessment: hospitalist at bedside. zb 19:20 Reassessment: Report given TERESE Alvarez. zb Vital Signs: 12:38 BP 132 / 74; Pulse 74; Resp 16; Temp 97.7; Pulse Ox 95% on R/A; Weight 63.5 kg; Height zb 5 ft. 9 in. (175.26 cm); Pain 4/10; 13:30 BP 156 / 85; Pulse 71; Resp 18; Pulse Ox 100% on R/A; zb 14:51 BP 179 / 87; Pulse 76; Resp 18; Pulse Ox 98% on R/A; zb 17:09 BP 155 / 97; Pulse 78; Resp 16; Pulse Ox 100% on R/A; zb 18:45 BP 164 / 89; Pulse 80; Resp 17; Pulse Ox 100% on R/A; zb 19:58 BP 180 / 86; Pulse 81; Resp 16; Pulse Ox 100% on R/A; zb 12:38 Body Mass Index 20.67 (63.50 kg, 175.26 cm) zb ED Course: 12:30 Arm band placed on. zb 12:35 Patient arrived in ED. em1 12:35 Alise Killian MD is Attending Physician. ma2 12:38 Alicia Saeed RN is Primary Nurse. zb 12:42 Triage completed. zb 13:00 Initial lab(s) drawn, by me, sent to lab. Inserted saline lock: 20 gauge in left aa5 forearm, using aseptic technique. Blood collected. 13:32 XRAY Chest (1 view) In Process Unspecified. EDMS 14:47 Rafael Bolton DO is Hospitalizing Provider. ma2 14:52 Allergy band placed. Placed in gown. Bed in low position. Call light in reach. Side zb rails up X 1. awake overnight monitor on. Pulse ox on. NIBP on. Door closed. Noise minimized. Warm blanket given. PO fluids given. Verbal reassurance given. 19:00 Report given to TERESE Alvarez. zb 21:30 No provider procedures requiring assistance completed. Patient admitted, IV remains in zb place. Administered Medications: 13:23 Drug: NS 0.9% 1000 ml Route: IV; Rate: 1 bolus; Site: left hand; zb 16:00 Follow up: Response: No adverse reaction; IV Status: Completed infusion; IV Intake: zb 1000ml 14:37 Drug: [place] (HYDROcodone-acetaminophen) 5 mg-325 mg 1 tabs {Note: RASS 0.} Route: PO; zb 17:09 Follow up: Response: No adverse reaction; Pain is decreased; RASS: Alert and Calm (0) zb 18:45 Drug: [place] (HYDROcodone-acetaminophen) 10 mg-325 mg 1 tabs {Note: RASS 0.} Route: PO; zb 19:15 Follow up: Response: No adverse reaction; Pain is decreased; RASS: Alert and Calm (0) zb Intake: 16:00 IV: 1000ml; Total: 1000ml. zb Outcome: 14:47 Decision to Hospitalize by Provider. ma2 19:25 Admitted to ER Hold. Please see [facility] for further documentation. zb 21:30 Admitted to Med/surg accompanied by tech, room 209, with chart, Report called to ami Lyles RN 21:30 Condition: stable 21:30 Instructed on the need for admit. 21:41 Patient left the ED. rr5 Signatures: Dispatcher [employer] EDMS Mitch Fulton em1 Arianna Martino RN RN aa5 Alise Killian MD MD ma2 Felix Alvarez RN RN rr5 Alicia Saeed RN RN zb Corrections: (The following items were deleted from the chart) 18:51 18:45 [place] (HYDROcodone-acetaminophen) 10 mg-325 mg 1 tabs PO zb zb 20:00 19:40 Reassessment: Report given TERESE Alvarez zb 21:59 19:00 Response: No adverse reaction zb zb
[2020-09-28] MEDS ORDERED: HYDROCODONE/APAP 5/325 MG TAB ONE (14:54)
[2020-09-28] MEDS ORDERED: HYDROCODONE/APAP 10/325 TAB ONE (19:00)
--- NOTE | 2020-09-28 21:22 | P.HP ---
Certification for Inpatient Patient admitted to: Observation With expected LOS: <2 Midnights Patient will require the following post-hospital care: None Practitioner: I am a practitioner with admitting privileges, knowledge of patient current condition, hospital course, and medical plan of care. Services: Services provided to patient in accordance with Admission requirements found in Title 42 Section 412.3 of the Code of Federal Regulations Patient History Date of Service: 09/28/20 Reason for admission: Syncope History of Present Illness: 70-year-old male with history of GERD, hypertension, CAD presents emergency department for syncope. Patient was walking when he began feeling very weak and sat in his recliner , then had a witnessed syncopal episode by family, EMS was called, patient does not recall anything until waking up in the ambulance. Patient does remember events leading up to syncope, states she is walking and began feeling very weak throughout his body and therefore laid down, denies any chest pain, palpitations, headache, neurological symptoms now or prior to the event. Upon arrival to the emergency department patient was awake, oriented x4, stable. Labs significant for hemoglobin 11.9 hematocrit 34.9 sodium 126 chloride 93 GFR 63 alk phos 132 BNP 1022 chest x-ray shows chronic interstitial lung disease without any acute findings. EKG without acute changes. ED provider wishes to admit patient under observation for syncope. Allergies codeine [Codeine] Allergy (Verified 06/14/16 09:15) Nausea/Vomiting Home Medications: Gabapentin 300 mg PO TID 03/26/12 Oxcarbazepine 600 mg PO TID 03/26/12 Tramadol HCl [Tramadol HCl ER] 300 mg PO DAILY 03/26/12 Hydrocodone Bit/Acetaminophen [Hydrocodon-Acetaminophen 5-325] 1 each PO Q6HP PRN #40 tablet 06/04/12 Meclizine HCl [Motion Relief] 25 mg PO BID PRN 01/13/15 Metoprolol Tartrate [Lopressor*] 50 mg PO DAILY 02/14/19 Pantoprazole [Protonix Tab*] 40 mg PO DAILY 02/14/19 Sodium Chloride Tab [Sodium Chloride*] 1 gm PO BIDWM #30 tab 02/21/19 - Past Medical/Surgical History Diabetic: No -: GERD, HTN, KIDNEY STONES, [place], CAD -: PROSTATE, LITHOTRIPSY, ENDARTERECTOMY RIGHT CAROTID, MULTIPLE STENTS Psychosocial/ Personal History: Patient lives at home with family - Family History Mother -: Cancer Brother -: Cancer Sister -: Cancer - Social History Smoking Status: Current every day smoker Counseled patient to stop smoking for: less than 10 minutes Smoking therapy provided: No Alcohol use: No CD- Drugs: No Caffeine use: Yes Place of Residence: Home Review of Systems 10-point ROS is otherwise unremarkable Cardiovascular: As per HPI Physical Examination - Physical Exam General: Alert, In no apparent distress, Oriented x3 HEENT: Atraumatic, PERRLA, Mucous membr. moist/pink, EOMI, Sclerae nonicteric Neck: Supple, 2+ carotid pulse no bruit, No LAD, Without JVD or thyroid abnormality Respiratory: Clear to auscultation bilaterally, Normal air movement Cardiovascular: Regular rate/rhythm, Normal S1 S2 Gastrointestinal: Normal bowel sounds, No tenderness Musculoskeletal: No tenderness Integumentary: No rashes Neurological: Normal speech, Normal strength at 5/5 x4 extr, Normal tone, Normal affect - Studies Laboratory Data (last 24 hrs) 09/28/20 13:00: PT 12.1, INR 1.05 09/28/20 13:00: WBC 5.20, Hgb 11.9 L, Hct 34.9 L, Plt Count 205 09/28/20 13:00: Sodium 126 L, Potassium 3.7, BUN 13, Creatinine 1.15, Glucose 91, Magnesium 1.8, Total Bilirubin 0.3, AST 22, ALT 13, Alkaline Phosphatase 132 H Assessment and Plan - Plan Assessment Syncope Hypertension, GERD, history of CAD Plan Syncope: Monitor on telemetry, trend troponins, obtain orthostatics vital signs, carotid ultrasound ordered-patient has had previous right endarterectomy and had moderate plaque in the left in 2019. MRI brain without contrast, echocardiogram ordered. Will have patient evaluated by physical therapy as well, reports using walker. Anticipate discharge the next 24-48 hr. DVT prophylaxis Lovenox 40 mg subcutaneous once daily. Hypertension, GERD, history of CAD: Stable, continue other home medications. Discharge Plan: Home Plan to discharge in: 24 Hours - Advance Directives Does patient have a Living Will: No Does patient have a Durable POA for Healthcare: Yes - Code Status/Comfort Care Code Status Assessed: Yes (Full code) Critical Care: No Time Spent Managing Pts Care (In Minutes): 55
[2020-09-28] MEDS ORDERED: NA CHLORIDE 0.9% 1,000 ML IV SCH (21:31)
[2020-09-28] MEDS ORDERED: ACETAMINOPHEN 500 MG TAB PO PRN (21:31)
[2020-09-28] MEDS ORDERED: ONDANSETRON 4 MG/2 ML VIAL IV PRN (21:31)
[2020-09-28 22:22] VITALS: BMI 21.2
[2020-09-28] MEDS ORDERED: MORPHINE 2 MG/ML SYR IV ONE (22:25)
[2020-09-28] MEDS ORDERED: HYDROCODONE/APAP 10/325 TAB PO PRN (22:26)
[2020-09-28 22:28] VITALS: O2SAT 100
[2020-09-29 00:19] VITALS: BP 175/86; TEMP 98.7
[2020-09-29 00:31] LABS: Urine Appearance CLEAR (Clear); Urine Bilirubin NEGATIVE (Negative); Urine Blood NEGATIVE (Negative); Urine Color YELLOW (Yellow); Urine Glucose NEGATIVE (Negative); Urine Protein NEGATIVE (Negative)
[2020-09-29 00:32] LABS: Urine Microscopic Reflex NO UMIC
[2020-09-29] MEDS ORDERED: ENOXAPARIN 40 MG/0.4 ML SQ SCH (09:00)
--- NOTE | 2020-10-06 03:18 | P.DS ---
Discharge Date: 09/29/20 Disposition: AMA-LEFT AGAINST MEDICAL ADVIC Reason for Admission: Syncope Brief History of Present Illness: Patient is a 70-year-old gentleman who came to the hospital with syncope. Patient was admitted to the emergency room for observation. Hospital Course: When patient arrived to the floor he was anxious to go home. He called his family and patient left against medical advice. Vital Signs/Physical Exam: Temp Pulse Resp BP Pulse Ox 98.7 F 82 18 175/86 H 98 09/29/20 00:00 09/29/20 00:00 09/29/20 00:00 09/29/20 00:00 09/29/20 00:00 General: Alert, In no apparent distress, Oriented x3 Laboratory Data at Discharge: WBC Cancelled 09/29/20 05:00 Hgb Cancelled 09/29/20 05:00 Hct Cancelled 09/29/20 05:00 Plt Count Cancelled 09/29/20 05:00 PT 12.1 SECONDS (9.5-12.5) 09/28/20 13:00 INR 1.05 09/28/20 13:00 Sodium Cancelled 09/29/20 05:00 Potassium Cancelled 09/29/20 05:00 BUN Cancelled 09/29/20 05:00 Creatinine Cancelled 09/29/20 05:00 Glucose Cancelled 09/29/20 05:00 Magnesium Cancelled 09/29/20 05:00 Total Bilirubin Cancelled 09/29/20 05:00 AST Cancelled 09/29/20 05:00 ALT Cancelled 09/29/20 05:00 Alkaline Phosphatase Cancelled 09/29/20 05:00 Troponin I Cancelled 09/29/20 05:00 Triglycerides Cancelled 09/29/20 05:00 Cholesterol Cancelled 09/29/20 05:00 HDL Cholesterol Cancelled 09/29/20 05:00 Cholesterol/HDL Ratio Cancelled 09/29/20 05:00 Home Medications: Gabapentin 300 mg PO QID 03/26/12 Oxcarbazepine 600 mg PO TID 03/26/12 Tramadol HCl [Tramadol HCl ER] 300 mg PO DAILY 03/26/12 Hydrocodone Bit/Acetaminophen [Hydrocodon-Acetaminophen 5-325] 1 each PO Q6HP PRN #40 tablet 06/04/12 Meclizine HCl [Motion Relief] 25 mg PO BID PRN 08/31/15 Metoprolol Tartrate [Lopressor*] 50 mg PO DAILY 02/14/19 Pantoprazole [Protonix Tab*] 40 mg PO DAILY 02/14/19 Physician Discharge Instructions: Patient left against medical advice Followup: NONE,NONE [Primary Care Provider] - Time spent managing pt's care (in minutes): 20
== END 2020-09-29 03:40 | disposition left against medical advice (07) ==
LOC: ER 12:32 → ERHOLD 19:16 → 2ND 21:05
PROVIDERS: ADMIT Hospitalist; ATTEND Hospitalist
DX: R55 Syncope and collapse (principal); Z53.20 Procedure and treatment not carried out because of patient's decision for unspecified reasons; Z20.822 Contact with and (suspected) exposure to COVID-19; R94.31 Abnormal electrocardiogram [ECG] [EKG]; K21.9 Gastro-esophageal reflux disease without esophagitis; I10 Essential (primary) hypertension; I25.10 Atherosclerotic heart disease of native coronary artery without angina pectoris; I25.2 Old myocardial infarction; F17.210 Nicotine dependence, cigarettes, uncomplicated
CPT/HCPCS: 36415; 71045; 80048; 80076; 81003; 83735; 83880; 84484; 85025; 85610; 93005; 96360; 96361; 99285; G0378; J2270; J7030; U0003

== ENCOUNTER 2020-11-24 13:13 | Inpatient (IN) | payer OTHER ==
--- OUTSIDE RECORDS SUMMARY | 2020-11-24 13:18 | XMS REPORT | Continuity of Care Document ---
:1950 Demographics Address [address] [place] [address] Work Phone Mobile Phone Email Address NONE Preferred Language en Marital Status Unknown Adventism Affiliation Unknown Race Unknown Additional Race(s) Unavailable White Ethnic Group Unknown Author Organization [facility] t Address [address] [place] [address] Care Team Providers Name Role Phone Lolis [...] st 00 NSTEMI NSTEMI Disease Active 2017-05 [place] (non-ST (non-ST 05-22 Methodi elevated elevated 00:00: st myocardial myocardial 00 infarction infarction ) ) PSVT PSVT Disease Active 2017-05 [place] (paroxysma (paroxysma 05-21 Me thodi l l 00:00: st supraventr supraventr 00 icular icular tachycardi tachycardi a) a) Acute on Acute on Disease Active [place] chronic chronic 02-11 [facility]i congestive congestive 00:00: st heart heart 00 failure failure CHEST PAIN Diagnosis Active 2011-02-24 [facility]oria 01-24 10:02:00 l CHEST 12:00: [place] PAIN 00 Active 01/24/2011 [place] LOWER BACK Diagnosis Active 2011-01-20 [facility] PAIN 01-20 19:58:00 l LOWER 00:00: [place] BACK PAIN 00 Active 01/20/2011 [facility] KIDNEY Diagnosis Active 2011-01-20 Mem oria STONES 09-21 19:58:00 l KIDNEY 00:00: [place] STONES 00 Active 09/21/2010 [facility] LIFEFLIGHT Diagnosis Active 2011-04-01 Memoria 09-23 10:45:00 l 21:11: [place] LIFEFLIGHT 00 Active 09/23/2009 [facility] HEADACHE Diagnosis Active 2011-01-20 M emoria 09-23 19:58:00 l HEADACHE 00:00: Bernard n 00 Active 09/23/2009 [facility] Kidney Problem Active 2011-01-26 Memor ia stone 08:29:47 l Kidney [place] stone Active Problem 01/26/2011 [facility] [place] Nephrostom Problem Active 2011-01-26 M emoria y tube 08:29:47 l [place]olo Nephrostom y tube Active Problem 01/26/2011 [facility] [place] Pain Problem Active 2011-01-26 Memor ia 08:29:47 l Pain [place] Active Problem 01/26/2011 [facility] [place] KIDNEY Diagnosis Active 2011-01-20 Mem oria ANOMALY 19:58:00 l NEC KIDNEY [place] ANOMALY NEC Active [facility] CALCULUS Diagnosis Active 2011-01-20 M emoria OF KIDNEY 19:58:00 l CALCULUS Bernard n OF KIDNEY Active [facility] Pain in Pain in Diagnosis Active [facility] [...] routine healing healing Acid Acid Disease Active [place] reflux reflux Methodi st Wears Wears Disease Active [place] glasses glasses Methodi st Full Full Disease Active [place] dentures dentures Method i st Enlarged Enlarged Disease Active [place] prostate prostate Method i st History of History of Disease [facility] heart heart Methodi attack attack st TIA TIA Disease Active [place] (transient (transient Me thodi ischemic ischemic st attack) attack) Allergies, Adverse Reactions, Alerts Allergy Allergy Status Severity Reaction(s) Onset Inactive Treating Comm ents Source Name Type Date Date Clinician Codeine Propensi Active Rash 2007-0 Other [place] ty to 7-10 reaction( Methodi adverse 00:00: s): st reaction 00 Nausea s to and/or drug Vomiting CODEINE CODEINE Active Memoria l [place] penicill penicill Active Memori a ins ins l [place] codeine Adverse Active Info Not [facility] Reaction Available [facility] Family History Family Member Diagnosis Comments Start Date Stop Date Source Natural sister Uterine cancer [place] [facility] Natural sister Heart attack [place] [facility] Natural sister Liver cancer [place] [facility] Natural brother Lung cancer [place] [facility] Natural brother Heart attack [place] [facility] Natural father Leukemia [place] Me thodist Natural mother Uterine cancer [place] [facility] Social History Social Habit Start Date Stop Date Quantity Comments Source History of tobacco Cigarette Smoker [place] use Church History [facility] Alcohol Std Drinks Method ist History [facility] Alcohol Binge Church Cigarettes smoked 2018-07-03 2018-07-03 [place] current (pack per 00:00:00 00:00:[address] day) - Reported Cigarette 2018-07-03 2018-07-03 [place] pack-years 00:00:00 00:00:00 [facility] Tobacco use and 2018-07-03 2018-07-03 Current user [place] exposure 00:00:00 00:00:00 [facility] Alcohol intake 2018-07-03 2018-07-03 [facility] 00:00:00 00:00:00 non-drinker of Church alcohol (finding) History [facility] 2018-06-28 2018-06-28 1 [place] Alcohol Frequency 00:00:00 00:00:[address] Tobacco Comment 2018-06-28 2018-06-28 2 cigarettes per Nina ston 00:00:00 00:00:00 day Church Sex Ass[birth year] [place] 00:00:00 00:00:00 Church Smoking Status Start Date Stop Date Source Current every day smoker 2018-07-03 00:00:00 [place] [facility] Medications Ordered Filled Start Stop Current Ordering Indication Dosage Frequency Signature Comments Components Source Medication Medication Date Date Medication? Clinician (SIG) Name Name gabapentin Yes 300mg [id number] Take 300 Gil (NEURONTIN) 2-18 [id number] mg by M ethodi 300 mg 12:27: 3D mouth 3 st capsule 18 (three) times a day. OXcarbazepi Yes 600mg Q.[id number] Take 600 Gil ne 2-18 [id number] mg by Methodi (TRILEPTAL) 12:27: 3D mouth [...] nn 19 cap, Substituti on Allowed, CAP Radom Yes Larry 1 tab, PO, Memoria 10/325 oral 01-24 r J Cristian Q4-6H, l tablet 23:20: PRN, 24 [place] 58 tab, as needed for pain, Substituti [...] Cristian mL, Route: l 21:03: IVP, Drug [place] 00 form: INJ, ONCE, Priority: STAT, Start [...] Chiquis Foster Route: l 20:10: IVP, Drug [place] 00 Form: INJ, PRN, PRN Line Flush, [...] Home 01-24 on Allowed l Medication 19:48: [place] 44 Vicodin Yes Substituti Bradley jose 5/500 oral 01-24 on l tablet 19:48: Allowed, [place] 08 Maintenanc e Levsin SL Yes Wood [...] Rubi Route: l 00:18: Larios IVP, Drug [place] form: INJ, ONCE, Priority: STAT, Start date: 01/20/11 19:18:00, Stop date: 01/20/11 19:18:00 Dilaudid No Ajita 2 mg, Memoria 01-20 Rubi Route: IV, l 22:55: Larios ONCE, R[place] 00 Priority: STAT, Start date: 01/20/11 17:55:00, Stop date: 01/20/11 17:55:00 hydromorpho No Ajita 1 mg, Bradley jose ne 01-20 Rubi Route: l 22:54: Larios IVP, ONCE, [place] Priority: STAT, Start date: 01/20/11 17:54:00, Stop date: 01/20/11 17:54:00 morphine No Ajita 4 mg, 1 Memor ia Sulfate 01-20 Rubi mL, Route: l 21:44: Ric IVP, Drug [place] 00 form: INJ, ONCE, Priority: STAT, Start [...] [facility] [place] [facility] TraMADol TraMADol Yes Jesse not [facility] HCl ER HCl ER [place] [facility] Metoprolol Metoprolol Yes Jesse not [...] l Outpati ent Clinics Metoprolol Metoprolol Yes Ejsse not [facility] Tartrate Tartrate [place] defined [...] Systolic (mm Hg) 2011-01-25 00:06:00 Bradley rial [place] Diastolic (mm Hg) 2011-01-25 00:06:00 [facility] orial [place] Peripheral Pulse Rate 2011-01-25 00:06:00 [facility] [place] Temperature Oral (F) 2011-01-25 00:06:00 97.7 F [facility] [place] Respitory Rate 2011-01-25 00:06:00 Memori al [place] Height 2011-01-24 19:40:00 175.26 cm [facility] [place] Weight 2011-01-24 19:40:[address] [facility] [place] Temperature Oral (F) 2011-01-24 19:40:00 97.4 F [facility] [place] Respitory Rate 2011-01-24 19:40:00 Memori al [place] Systolic (mm Hg) 2011-01-24 19:40:00 Bradley rial [place] Peripheral Pulse Rate 2011-01-24 19:40:00 [facility] [place] Diastolic (mm Hg) 2011-01-24 19:40:00 Mem orial [place] Systolic (mm Hg) 2011-01-21 03:33:00 Bradley rial [place] Diastolic (mm Hg) 2011-01-21 03:33:00 Mem orial [place] Peripheral Pulse Rate 2011-01-21 03:33:00 [facility] [place] Temperature Oral (F) 2011-01-21 03:33:00 97.4 F [facility] [place] Respitory Rate 2011-01-21 03:33:00 Memori al [place] Systolic (mm Hg) 2011-01-21 00:57:00 Bradley rial [place] Respitory Rate 2011-01-21 00:57:00 Memori al [place] Diastolic (mm Hg) 2011-01-21 00:57:00 Mem orial [place] Peripheral Pulse Rate 2011-01-21 00:57:00 [facility] [place] Temperature Oral (F) 2011-01-20 22:07:00 98.0 F [facility] [place] Respitory Rate 2011-01-20 22:07:00 Memori al [place] Peripheral Pulse Rate 2011-01-20 22:07:00 [facility] [place] Diastolic (mm Hg) 2011-01-20 22:07:00 Mem orial [place] Systolic (mm Hg) 2011-01-20 22:07:00 Bradley rial [place] Height 2011-01-20 17:27:00 175.26 cm [facility] [place] Weight 2011-01-20 17:27:00 [facility] [place] Temperature Oral (F) 2011-01-20 17:27:00 97.0 F [facility] [place] Procedures This patient has no known procedures. Plan of Care Planned Activity Planned Date Details Comments Source Future Scheduled 2020-12-14 INFLUENZA VACCINE [place] [facility] Test 00:00:00 [code = INFLUENZA VACCINE] Future Scheduled 2001 COLONOSCOPY SCREENING [place] [facility] Test 00:00:00 [code = COLONOSCOPY SCREENING] Future Scheduled 2001 SHINGLES VACCINES (#1) [place] [facility] Test 00:00:00 [code = SHINGLES VACCINES (#1)] Future Scheduled 1969 Hepatitis C screening [place] [facility] Test 00:00:00 (procedure) [code = 018438943] Future Scheduled 1963 COVID-19 VACCINE (1) [place] [facility] Test 00:00:00 [code = COVID-19 VACCINE (1)] Future Scheduled 1957 65+ PNEUMOCOCCAL [facility] Test 00:00:00 VACCINE (1 of 2 - PPSV23) [code = 65+ PNEUMOCOCCAL VACCINE (1 of 2 - PPSV23)] Encounters Start End Encounter Admission Attending Care Care Encounter Source Date/Time Date/Time Type Type Clinicians Facility Department ID 2019-04-03 2019-04-03 [facility] [id number] 11:00[facility]00 11[facility]00[facility] 2019-03-01 2019-03-01 [facility] [id number] 09:00[facility]00 09:00[facility]00 [facility] Clin[facility] 2018-02-02 2018-02-02 Inpatient LOLIS [facility]UNDERS [facility] TELE [id number] [place] 17:59:00 22:55:00 [facility] Results Test Description Test Time Test [...] = A/G Ratio) 0.9 1 0.7-1.6 N [facility]mywmrpGEBGYPFYG7542-87-05 20:11:003.9[facility] 2011-01-24 20:11:00 Test Item Value Reference Range Interpretation Comments B/C Ratio (test code = B/C Ratio) 13.0 1 6-25 N [facility]aleTzeqneuQYLOGWLDK0361-93-93 20:11:0013.7[facility]annCHEMISTRY 2011-01-24 20:11:42436.0[facility] QqgdgozVZEXYJZYZ8718-90-80 20:11:001.6[facility] QpuvgzrTBLYHMOVB3151-60-45 20:11:0020.0[facility] SwktigiMNNKUONRC3416-24-94 20:11:0097.0[facility] FnbfrydATEDVFOIJ1839-93-64 20:11:003.7[facility] [place] SRUTKBRDL3650-65-13 20:11:007.6[facility] AcgcxdnLEFZCTEEZ9051-52-67 20:11:009.[address] [facility] KnbarrkGWHKNCIOZ7194-35-62 20:11:0025.0[facility]annCHEMISTRY 2011-01-24 20:11:19431.0[facility] EizexpaMIXDDXPFW4102-21-98 20:11:00 Test Item Value Reference Range Interpretation Comments CK MB Index (test 1.6 1 See_Comment N [Automate d message] The code = CK MB Index) system w [facility] generated this result transmit rosmeyr reference range : <=2.5. The reference range was not used to interpr et this result as jovanni l/abnormal. [facility]cfqgpvFMACJHBPXS9484-12-66 20:11:00 Test Item Value Reference Range Interpretation Comments PTT (test code = PTT) 30.9 s 22.9-35.8 N [facility]qxthfbBBQESYVSQF0943-63-87 20:11:00 Test Item Value Reference Range Interpretation Comments PT (test code = PT) 12.0 s 12.0-14.7 N [facility] HospitalIcmkqklGTDFOSSNVH6340-96-48 20:11:00 Test Item Value Reference Range Interpretation Comments INR (test code = INR) 0.88 1 0.85-1.17 N [facility]aleEifvrnuNVKPBUTPKW1138-88-75 20:11:00 Test Item Value Reference Range Interpretation Comments MCH (test code = MCH) 32.2 pg 27.0-31.0 H [facility] CbhdqeuSDNEBBSDEO0475-12-37 20:11:0094.6[facility] HermannHEMATOLOGY 2011-01-24 20:11:0013.4[facility] JzznhzcPYMXHORGVA1451-75-76 20:11:0034.0[facility] EtddnpnOWUOLRMTRB1134-47-94 20:11:007.5[facility] WenpepjVMBQBYEHHP5765-32-72 20:11:06259.0[facility] QorgovwONQPBBWUZY8887-71-29 20:11:0013.4[facility] [place] SVNINVODGE9040-94-28 20:11:004.16[facility] PidksdlNKPDTVXCDO2754-92-86 20:11:00 39.4[facility] TwojgtqDQHUMAMXPA3247-19-92 20:11:005.5[facility] HermannHEMATOLOGY 2011-01-24 20:11:0066.1[facility] TbiqmmuXLQBRSZIJY4887-16-25 20:11:007.5[facility] NdrmqkaDCITTEZICG1917-91-20 20:11:0022.5[facility] VwkocmaWSUTIPUGKC9098-02-85 20:11:003.1[facility] UymzjovNTLOIHVFUX9355-86-90 20:11:000.4[facility] [place] LONGMBQSOC0504-58-52 20:11:001.2[facility] OkuorbwKOFWEZSHQQ6242-28-92 20:11:000.2 [facility] AebzofvMYYSJGHBCH0916-05-84 20:11:000.8[facility] HermannHEMATOLOGY 2011-01-24 20:11:003.6[facility] EkdxyrmSMEKQALTCU4680-14-32 20:11:000.0[facility] MxnpzekQXHHNTYHVL9599-01-17 20:00:00Large *ABN*(01/24/2011 15:00:00) ??[facility] HwzhposNQKBQTDXZU8776-44-84 20:00:00 Test Item Value Reference Range Interpretation Comments UA pH (test code = UA pH) 7.0 1 5.0-8.0 N [facility]aleCmvvqpsSJOTZVUNAA8433-06-92 20:00:00>=300 mg/dL *ABN*(01/24/2011 15:00:00) ??[facility]aleLdhjyekWYOEFHPKHL0457-57-38 20:00:00Red *ABN*(01/24/2011 15:00:00) ??[facility]aleIcbhfkiQSNKGEKTOQ2119-25-36 20:00:00Cloudy *ABN*(01/24/2011 15:00:00) ??[facility]aleLofbtkbCSKZDBKYEA7919-31-93 20:00:00 Test Item Value Reference Range Interpretation Comments UA Spec Grav (test code = UA Spec 1.02 1 N Grav) [facility]aleShceqbyJYSCFTFGVO5223-84-07 20:00:000-2 /HPF (01/24/2011 15:00:00) ?? [facility]aleZbhgmsqMUTGHBYXVR7898-11-11 20:00:00>100 /HPF *ABN*(01/24/2011 15:00:00) ??[facility]aleJklgjtdIINLXNVNIC6711-38-38 20:00:00Occasional /HPF (01/24/2011 15:00:00) ??[facility]aleJwtvuwuJLRSLRDOOA9008-90-83 20:00:00Negative (01/24/2011 15:00:00) ??[facility]aleJklbqqdYCXQYLWUXL6698-84-54 20:00:00Moderate *ABN*(01/24/2011 15:00:00) ??[facility]aleYurxugcMDSLDFUWKQ4391-60-91 20:00:00Rare /LPF (01/24/2011 15:00:00) ??[facility]aleUowajvlKESNPHSVLU0380-33-96 20:00:000.2 [facility]aleSgraqfnOISCFZIMQR1882-74-64 20:00:00Negative (01/24/2011 15:00:00) ?? [facility]aleOewtchaCWSDNEUJLB0795-46-31 20:00:00Negative *NA*(01/24/2011 15:00:00) ??[facility]aleCtitbktVXWBLSGTPZ0892-29-51 20:00:00Negative *NA*(01/24/2011 15:00:00) ??[facility] DdqjyqhENALKRLVVO4540-31-39 22:41:00Negative *NA*(01/20/2011 17:41:00) ??[facility] WuslronMTQETCNDK5535-82-51 22:30:009.1 [facility] HmdauuzFWBASJGPI5665-78-26 22:30:40127.0[facility] HermannCHEMISTRY 2011-01-20 22:30:001.3[facility] ZykqiinNPUWTTPRE1664-56-30 22:30:0090.0[facility] ZmvswzcFLLIVYTCY2540-63-32 22:30:0014.0[facility] PfqfcwoSENYDOXBS4869-82-66 22:30:004.3[facility] NuogmkbKSJVWDSBZ7755-82-51 22:30:0028.0[facility] [place] LRHDTBJNW5088-16-08 22:30:0097.0[facility] UhsrzxiVFBTGSELJS4884-51-79 22:30:008.1 [facility] IcgdxczDMGBRBVHGW4917-48-12 22:30:0034.0[facility] HermannHEMATOLOGY 2011-01-20 22:30:00 Test Item Value Reference Range Interpretation Comments MCH (test code = MCH) 31.8 pg 27.0-31.0 H [facility] KiwxxicZZIBAFAUUG4820-43-46 22:30:0012.5[facility] HermannHEMATOLOGY 2011-01-20 22:30:07864.0[facility] GbrktnjAVMUCMVIUL9640-86-27 22:30:0014.4 [facility] TckmmelYDVMMNNDNR7324-21-08 22:30:0093.6[facility] HermannHEMATOLOGY 2011-01-20 22:30:0042.2[facility] IxlwuchWHLAYNMHFY4037-92-93 22:30:005.4[facility] JoinojiUESNYJRPLA3884-15-67 22:30:004.51[facility] RpqmhwsOSUYFABUQB8250-41-47 22:30:001.6[facility] IkfqrvhPAHWFEVSYK2374-40-86 22:30:003.5[facility] [place] GQLMBTFFOT9454-95-84 22:30:000.4[facility] FjblfixUASNKVONZL0218-09-82 22:30:000.2 [facility] MrggwtaYKXZJYJQWS3567-63-09 22:30:000.1[facility] HermannHEMATOLOGY 2011-01-20 22:30:00Normal (01/20/2011 17:30:00) ??[facility] HermannHEMATOLOGY 2011-01-20 22:30:008.1[facility] CdtcdyxJWIZWTDGTB3655-47-82 22:30:003.0[facility] TvqavsoGDIFIUWTPS1462-72-25 22:30:0022.3[facility] JkywenvGSOEZDZIEB5662-94-64 22:30:001.2[facility] YfvelhvYGDGUMXCHF0978-18-94 22:30:00Normal (01/20/2011 17:30:00) ??[facility]aleQjmzvmvURDUTTSTXV5818-68-82 22:30:0065.0[facility] XCUMDCNAHV9855-79-87 22:30:32802 mg/dL *ABN*(01/20/2011 17:30:00) ??[facility]aleNwrbbwjRXBUGROMKH5306-12-27 22:30:00 Test Item Value Reference Range Interpretation Comments UA pH (test code = UA pH) 7.0 1 5.0-8.0 N [facility]alePmvawuoGNGXNQNWJZ8221-05-80 22:30:00Negative (01/20/2011 17:30:00) ?? [facility] HospitalJwsbpfnAPKQHOHWPS9240-58-40 22:30:00Negative *NA*(01/20/2011 17:30:00) ??[facility]aleWoofunrTRFIPFEDTX0996-56-06 22:30:00Negative (01/20/2011 17:30:00) ?? [facility]aleBpchxrsBJDPDMZOIB0935-07-19 22:30:00 Test Item Value Reference Range Interpretation Comments UA Spec Grav (test code = UA Spec 1.02 1 N Grav) [facility]valeRegxayjZTAXYYRKJN8627-08-26 22:30:00Cloudy *ABN*(01/20/2011 17:30:00) ??[facility] HospitalGarvytsYBRWFGAJWH3166-10-73 22:30:00Red *ABN*(01/20/2011 17:30:00) ?? [facility] HospitalZydeqwjKONYRMHYBB4887-04-64 22:30:00Moderate *ABN*(01/20/2011 17:30:00) ??[facility] RpeqswbAERDHKLGEW2861-61-03 22:30:00Negative (01/20/2011 17:30:00) ?? [facility] RhnpyjcMAKBUQYETB9063-41-27 22:30:000.2[facility] HermannURINALYSIS 2011-01-20 22:30:00Large *ABN*(01/20/2011 17:30:00) ??[facility] HermannURINALYSIS 2011-01-20 22:30:00Occasional /HPF *ABN*(01/20/2011 17:30:00) ??[facility] EJBDGUDDOT9607-17-59 22:30:00None Seen (01/20/2011 17:30:00) ??[facility] SBTMRSCZKZ3127-04-10 22:30:00Rare /LPF (01/20/2011 17:30:00) ??[facility] MQIERVAQRT2305-93-00 22:30:000-2 /HPF (01/20/2011 17:30:00) ??[facility] LWMDBKRWEH0456-78-85 22:30:00Occasional /HPF (01/20/2011 17:30:00) ??[facility] NruxtirBHXKEXHMBT2362-03-99 22:30:00>100 /HPF *ABN*(01/20/2011 17:30:00) ?? [facility] LxrwlzlZSRIKYCDG0897-64-97 22:30:0014.3[facility] Rolo
--- NOTE | 2020-11-24 14:07 | RAD REPORT ---
EXAM DESCRIPTION: CT - Head Brain Wo Cont - 11/24/2020 1:48 pm CLINICAL HISTORY: MENTAL STATUS CHANGE COMPARISON: Head Brain Wo Cont dated 02/20/2019 TECHNIQUE: Axial 5 mm thick images of the head were obtained without IV contrast. All CT scans are performed using dose optimization technique as appropriate and may include automated exposure control or mA/KV adjustment according to patient size. FINDINGS: No intracranial hemorrhage, mass, edema or shift of mid-line structures. No acute cortical based infarction. There is no cortical edema or sulcal effacement. Patient has mild to moderate jacques rity atrophy with ventricles in proportion. Scattered chronic ischemic changes are present in the cer ebral white matter. There is a 2 centimeter elliptical shaped area of diminished attenuation in the d eep left frontal lobe white matter adjacent to the head of the caudate. This extends into the externa l capsule. This is an infarction pattern but the degree of diminished attenuation suggests it is jennifer te. No abnormal extra-axial fluid collections. Physiologic and arterial calcifications are present. Mastoid air cells and visualized portions of the paranasal sinuses are clear. No acute bony findings. IMPRESSION: No intracranial hemorrhage, mass or acute intracranial finding suspected. Area of infarction in the deep left frontal lobe white matter near the head of the caudate is favored to be remote. The degree of diminished density favors an old infarction. Atrophy and chronic ischemic changes are present. Chronic ischemic change can mask nonhemorrhagic CVA .
--- NOTE | 2020-11-24 14:39 | RAD REPORT ---
EXAM DESCRIPTION: RAD - Chest Single View - 11/24/2020 2:05 pm CLINICAL HISTORY: AMS COMPARISON: Portable September 28 TECHNIQUE: AP portable chest image was obtained 11/24/2020 2:05 pm . FINDINGS: Lungs are clear. View small scattered granulomas are seen in the lung oliveira. Heart and va sculature are normal. No measurable pleural effusion and no pneumothorax. No acute bony abnormality s een. No acute aortic finding. Aortic calcifications are present. There is bowel interposition between the liver and right hemidiaphragm as a normal variant. IMPRESSION: No acute cardiopulmonary process. No significant change from comparison study.
[2020-11-24 14:56] LABS: Absolute Lymphocytes (CBC) 0.8 K/uL (0.7-4.9); Basophils % 0.6 % (0-1.3); Hematocrit 33.7 % (39.6-49.0); Lymphocytes % 16.7 % (15.3-44.8); MPV 9.6 fL (7.6-11.3)
[2020-11-24 15:17] LABS: Albumin 3.5 g/dL (3.4-5.0); Bilirubin Direct 0.2 mg/dL (0-0.2); Bilirubin Total 0.4 mg/dL (0.2-1.0); Protein, Total 7.8 g/dL (6.4-8.2); Troponin (Emerg Dept Use Only) 0.14 ng/mL (0.0-0.045)
[2020-11-24 15:25] LABS: Magnesium 1.5 mg/dL (1.8-2.4); Potassium 4.5 mmol/L (3.5-5.1)
--- NOTE | 2020-11-24 15:42 | RAD REPORT ---
EXAM DESCRIPTION: RAD - Foot Right 3 View - 11/24/2020 3:01 pm CLINICAL HISTORY: PAIN COMPARISON: No comparisons FINDINGS: Imaging is not optimal. Patient was unable to fully cooperate with the examination. No fracture, dislocation or periosteal reaction. No acute or destructive bone finding identifiable. No air or foreign body in the soft tissues. IMPRESSION: Negative right foot examination for acute or significant finding.
--- NOTE | 2020-11-24 17:59 | ER ---
Nurse's Notes [facility] Name: Jean Pierre Martinez Age: 70 yrs Sex: Male : 1950 Arrival Date: 11/24/2020 Time: 13:18 Bed 7 Private MD: Diagnosis: Elevated troponin;Delirium;Coronavirus infection, unspecified Presentation: 11/24 13:18 Chief complaint: EMS states: called out by family reporting that the pt has had sv increasing pain to the R foot. Pt fell last week, seen at [facility] and discharged. Family wants his reevaluated. Coronavirus screen: Client denies travel out of the [place] in the last 14 days. At this time, the client does not indicate any symptoms associated with coronavirus-19. Ebola Screen: No symptoms or risks identified at this time. Initial Sepsis Screen: Does the patient meet any 2 criteria? HR > 90 bpm. No. Patient's initial sepsis screen is negative. Does the patient have a suspected source of infection? No. Patient's initial sepsis screen is negative. Risk Assessment: Do you want to hurt yourself or someone else? Patient reports no desire to harm self or others. Onset of symptoms was November 24, 2020. 13:18 Method Of Arrival: EMS: [facility] sv 13:18 Acuity: BILL 3 sv Triage Assessment: 13:18 General: Appears in no apparent distress. comfortable, well developed, Behavior is sv calm, cooperative, appropriate for age. Pain: Complains of pain in right foot Pain currently is 8 out of 10 on a pain scale. Pain began last week after a fall Is intermittent. Neuro: Level of Consciousness is awake, alert, obeys commands, Oriented to person, place, time, situation, Moves all extremities. Full function. Cardiovascular: Patient's skin is warm and dry. Pulses are palpable in right dorsalis pedis artery and left dorsalis pedis artery. Respiratory: Respiratory effort is even, unlabored, Respiratory pattern is regular, symmetrical. Derm: Skin is normal, Redness noted to the R foot. Historical: - Allergies: 13:19 Codeine; sv - Home Meds: 18:18 gabapentin 300 mg Oral cap 1 cap 4 times a day [Active]; pantoprazole 40 mg Oral TbEC 1 sv tab once daily [Active]; metoprolol tartrate 50 mg oral tab once daily [Active]; BRILINTA 90 mg Oral tab 1 tab 2 times per day [Active]; meclizine 25 mg Oral chew 1 tab 3 times per day [Active]; [place] 10-325 mg Oral tab 1 tab Q6h prn [Active]; oxcarbazepine 600 mg Oral tab 1 tab every 8 hours [Active]; - PMHx: 13:19 GERD; Kidney stones; Myocardial infarction; Hypertension; sv - Immunization history:: Adult Immunizations up to date, Client reports having NOT received the Covid vaccine. - Social history:: Smoking status: . Screenin:25 Abuse screen: Denies threats or abuse. Denies injuries from another. Nutritional sv screening: No deficits noted. Tuberculosis screening: No symptoms or risk factors identified. Fall Risk None identified. Assessment: 14:00 Reassessment: Patient appears in no apparent distress at this time. No changes from sv previously documented assessment. Patient and/or family updated on plan of care and expected duration. Pain level reassessed. Patient is alert, oriented x 3, equal unlabored respirations, skin warm/dry/pink. 14:43 Reassessment: Patient appears in no apparent distress at this time. Patient and/or sv family updated on plan of care and expected duration. Pain level reassessed. Patient is alert, oriented x 3, equal unlabored respirations, skin warm/dry/pink. 15:40 Reassessment: Patient appears in no apparent distress at this time. No changes from sv previously documented assessment. Patient and/or family updated on plan of care and expected duration. Pain level reassessed. Patient is alert, oriented x 3, equal unlabored respirations, skin warm/dry/pink. 16:30 Reassessment: Patient appears in no apparent distress at this time. Patient and/or sv family updated on plan of care and expected duration. Pain level reassessed. Patient is alert, oriented x 3, equal unlabored respirations, skin warm/dry/pink. Pt wanting to go home. Informed Yg SNIDER. 16:57 Reassessment: Pt removed his IV and cardiac monitoring wiring. Nephew remains at the sv bedside. 17:33 Reassessment: Pt attempting to leave the ER. Called Morelia (daughter) and informed her sv of the situation. She stated that she wasn't on her way here and asking if Don was here. Informed her that he left. She stated that she would see what she can do. 17:35 Reassessment: Pt helped back into the bed. sv 18:05 Reassessment: Morelia (daughter) at the bedside. sv 18:35 Reassessment: Patient appears in no apparent distress at this time. Patient and/or sv family updated on plan of care and expected duration. Pain level reassessed. Patient is alert, oriented x 3, equal unlabored respirations, skin warm/dry/pink. Pt is calm and cooperative at this time. 11/25 03:04 Reassessment: Patient and/or family updated on plan of care and expected duration. Pain ea level reassessed. Patient is alert, oriented x 3, equal unlabored respirations, skin warm/dry/pink. Pt admitted to [facility] ICU 5. Pt left ED via hospital bed, pt tolerating well. Vital Signs: 11/24 13:18 BP 120 / 77; Pulse 104; Resp 16; Temp 98.3; Pulse Ox 99% ; Weight 72.12 kg; Height 5 sv ft. 9 in. (175.26 cm); Pain 8/10; 14:07 BP 131 / 82; Pulse 94; Resp 30; Pulse Ox 97% on R/A; sv 15:11 BP 151 / 83; Pulse 88; Resp 35; Pulse Ox 95% ; sv 15:40 BP 144 / 74; Pulse 93 MON; Resp 28; Pulse Ox 97% on R/A; sv 16:00 BP 138 / 81; Pulse 91; Resp 16; Pulse Ox 100% ; sv 16:49 BP 147 / 83; Pulse 91; Resp 21; Pulse Ox 99% ; sv 17:35 BP 154 / 90; Pulse 98; Resp 16; Pulse Ox 99% ; sv 18:13 BP 156 / 86; Pulse 99; Resp 16; Pulse Ox 99% ; sv 11/25 03:04 BP 150 / 88; Pulse 80; Resp 18; Pulse Ox 98% ; ea 11/24 13:18 Body Mass Index 23.48 (72.12 kg, 175.26 cm) sv 15:40 Sinus Rhythm sv ED Course: 11/24 13:18 Patient arrived in ED. sv 13:18 Hanna Roberto, RN is Primary Nurse. sv 13:19 Triage completed. sv 13:19 Arm band placed on. sv 13:20 Jonnathan Weeks PA is PHCP. jr8 13:20 Yg Friend NP is PHCP. jr8 13:20 Brian Gunter MD is Attending Physician. jr8 13:25 Patient has correct armband on for positive identification. Bed in low position. Call sv light in reach. Side rails up X2. media monitor on. Pulse ox on. NIBP on. Door closed. Head of bed elevated. 13:48 CT Head Brain wo Cont In Process Unspecified. EDMS 13:48 Basic Metabolic Panel Sent. sv 13:48 CBC with Diff Sent. sv 14:05 XRAY Chest (1 view) In Process Unspecified. EDMS 14:48 Basic Metabolic Panel Sent. mh5 14:48 CBC with Automated Diff Sent. mh5 14:48 Procalcitonin Sent. mh5 14:48 Lactate Sent. mh5 14:49 LFT's Sent. mh5 14:49 Magnesium Sent. mh5 14:49 NT PRO-BNP Sent. mh5 14:49 PT-INR Sent. mh5 14:49 Troponin (emerg Dept Use Only) Sent. mh5 14:49 Initial lab(s) drawn, by va, sent to lab. Inserted saline lock: 22 gauge hand, using 5 aseptic technique. Blood collected. Missed attempt(s): 18 gauge in left antecubital area. 14:50 Inserted saline lock: in left. mh5 15:00 Foot Right 3 View XRAY In Process Unspecified. EDMS 17:56 Juan C Brody PA is Hospitalizing Provider. pm1 18:40 Inserted saline lock: 22 gauge in left forearm, using aseptic technique. Flushed left sv forearm with 2 ml normal saline. 19:01 Primary Nurse role handed off by Hanna Roberto, RN mw2 19:09 Report given to Natalio GUDINO and Naty GUDINO. sv 11/25 02:31 No provider procedures requiring assistance completed. Patient admitted, IV remains in ea place. Administered Medications: 11/24 18:45 Drug: Magnesium Sulfate 1 grams Route: IVPB; Infused Over: 1 hrs; Site: left forearm; sv 21:00 Follow up: Response: No adverse reaction; IV Status: Completed infusion ea Outcome: 17:59 Decision to Hospitalize by Provider. pm1 11/25 02:31 Admitted to Med/surg accompanied by tech, room icu 5, with chart, Report called to ea Receiving nurse in ICU Condition: stable Instructed on the need for admit, Demonstrated understanding of instructions, follow-up care. 03:05 Patient left the ED. ea Signatures: Dispatcher [employer] EDMS Hanna Roberto, RN RN Jonnathan Weeks PA PA jr8 Yg Friend, PHOTOGRAPHIC DEVELOPER AND PRINTER PHOTOGRAPHIC DEVELOPER AND PRINTER pm1 Anika Fulton 5 Naty Holcomb RN RN Thor Mccoy mw2 Corrections: (The following items were deleted from the chart) 11/24 15:08 14:48 CORONAVIRUS+ drawn and sent. [facility] EDMT 18: 18:18 Home Meds: atorvastatin 40 mg Oral tab 1 tab once daily; [facility] 18: 18:18 Home Meds: hydrocodone-acetaminophen 10-325 mg Oral tab 1 tab every 6 hours; [facility] 18: 18:18 Home Meds: isosorbide mononitrate 20 mg Oral tab 1 tab; [facility] 18: 18:18 Home Meds: metoprolol tartrate 50 mg Oral tab 1 tab once daily; [facility] 18: 18:18 Home Meds: tramadol 300 mg Oral TM24 1 tab once daily; [facility] 18: 18:18 Home Meds: tramadol 300 mg Oral BP17 1 cap once daily; [facility]
--- NOTE | 2020-11-24 18:00 | EDPHYS ---
Physician Documentation [facility] Name: Jean Pierre Martinez Age: 70 yrs Sex: Male : 1950 Arrival Date: 11/24/2020 Time: 13:18 Bed 7 Private MD: NIKI Physician Brian Gunter HPI: 11/24 13:27 This 70 yrs old Male presents to ER via EMS with complaints of Foot Pain. pm1 13:27 The patient presents with pain, that is acute. The complaints affect the right foot. pm1 Context: The problem was sustained at home, resulted from the patient falling, while walking, on Tuesday, the patient can fully bear weight, the patient is able to ambulate. Onset: The symptoms/episode began/occurred 3 day(s) ago. Modifying factors: The symptoms are alleviated by elevating leg, the symptoms are aggravated by weight bearing, touching toes. Associated signs and symptoms: Pertinent negatives calf tenderness, fever, numbness, tingling. The patient has been recently seen by a physician: [facility]. Patient with fall on Tuesday at 0100. Went to [facility] at 0800 for foot pain related to the fall. The hospital wanted to transfer the patient due to some abnormality related to his heart, abnormal EKG per daughter. However the patient wanted to go home and was discharged. Patient was brought to the ER here for reevaluation . Historical: - Allergies: 13:19 Codeine; sv - Home Meds: 18:18 gabapentin 300 mg Oral cap 1 cap 4 times a day [Active]; pantoprazole 40 mg Oral TbEC 1 sv tab once daily [Active]; metoprolol tartrate 50 mg oral tab once daily [Active]; BRILINTA 90 mg Oral tab 1 tab 2 times per day [Active]; meclizine 25 mg Oral chew 1 tab 3 times per day [Active]; [place] 10-325 mg Oral tab 1 tab Q6h prn [Active]; oxcarbazepine 600 mg Oral tab 1 tab every 8 hours [Active]; - PMHx: 13:19 GERD; Kidney stones; Myocardial infarction; Hypertension; sv - Immunization history:: Adult Immunizations up to date, Client reports having NOT received the Covid vaccine. - Social history:: Smoking status: . ROS: 13:27 Constitutional: Negative for fever, chills, and weight loss, Cardiovascular: Negative pm1 for chest pain, palpitations, and edema, Respiratory: Negative for shortness of breath, cough, wheezing, and pleuritic chest pain, Abdomen/GI: Negative for abdominal pain, nausea, vomiting, diarrhea, and constipation, Back: Negative for injury and pain. 13:27 Neuro: Negative for headache, weakness, numbness, tingling, and seizure. 13:27 MS/extremity: Positive for pain, of the right first toe, right second toe, right third toe, right fourth toe and right fifth toe, Negative for decreased range of motion, deformity. 13:27 Skin: Positive for redness to right toes . 13:27 All other systems are negative. Exam: 13:27 Constitutional: This is a well developed, well nourished patient who is awake, alert, pm1 and in no acute distress. Head/Face: Normocephalic, atraumatic. 13:27 Back: No spinal tenderness. No costovertebral tenderness. Full range of motion. 13:27 Eyes: Exam is negative for acute changes, Extraocular movements: no acute changes. 13:27 ENT: Exam is negative for acute changes, Mouth: Lips: normal, Oral mucosa: normal, pink and intact, moist. 13:27 Cardiovascular: Exam negative for acute changes, Rate: normal, Rhythm: regular, Pulses: no pulse deficits are appreciated. 13:27 Respiratory: Exam negative for acute changes, respiratory distress, shortness of breath, Breath sounds: are clear throughout. 13:27 Abdomen/GI: Inspection: abdomen appears normal, Palpation: abdomen is soft and non-tender, in all quadrants. 13:27 Musculoskeletal/extremity: Extremities: grossly normal except: noted in the right first toe, right second toe, right third toe, right fourth toe and right fifth toe: swelling, tenderness, There is no evidence of decreased ROM, deformity, Circulation is intact in all extremities. the right foot and left foot Sensation intact. 13:27 Skin: Appearance: normal except for affected area, swelling, that are mild, toes of right foot. 13:27 Neuro: Exam negative for acute changes, Orientation: to person, place, situation, Not oriented to time, Mentation: confused, Motor: moves all fours, Sensation: is normal, no obvious gross deficits. Vital Signs: 13:18 BP 120 / 77; Pulse 104; Resp 16; Temp 98.3; Pulse Ox 99% ; Weight 72.12 kg; Height 5 sv ft. 9 in. (175.26 cm); Pain 8/10; 14:07 BP 131 / 82; Pulse 94; Resp 30; Pulse Ox 97% on R/A; sv 15:11 BP 151 / 83; Pulse 88; Resp 35; Pulse Ox 95% ; sv 15:40 BP 144 / 74; Pulse 93 MON; Resp 28; Pulse Ox 97% on R/A; sv 16:00 BP 138 / 81; Pulse 91; Resp 16; Pulse Ox 100% ; sv 16:49 BP 147 / 83; Pulse 91; Resp 21; Pulse Ox 99% ; sv 17:35 BP 154 / 90; Pulse 98; Resp 16; Pulse Ox 99% ; sv 18:13 BP 156 / 86; Pulse 99; Resp 16; Pulse Ox 99% ; sv 07 03:04 BP 150 / 88; Pulse 80; Resp 18; Pulse Ox 98% ; ea 11/24 13:18 Body Mass Index 23.48 (72.12 kg, 175.26 cm) sv 15:40 Sinus Rhythm sv MDM: 11/24 13:23 Patient medically screened. pm1 16:40 ED course: Talked with daughter Karey who has medical power of information technology analyst and told her pm1 that I would like to admit the patient. However the patient is currently wanting to go home. The daughter is on the way to the hospital to talk with her father. 17:55 Data reviewed: vital signs. pm1 17:55 ED course: Daughter, Karey, with medical power of information technology analyst present in the room and she pm1 would like the patient to stay in the hospital and the patient agrees to stay. 11/24 13:27 Order name: Urine Microscopic Only pm1 11/24 13:27 Order name: Basic Metabolic Panel pm1 11/24 13:27 Order name: CBC with Diff pm1 11/24 13:27 Order name: LFT's; Complete Time: 15:50 pm1 11/24 13:27 Order name: Magnesium; Complete Time: 15:50 pm1 11/24 13:27 Order name: NT PRO-BNP; Complete Time: 15:50 pm1 11/24 13:27 Order name: PT-INR; Complete Time: 01:40 pm1 11/24 13:27 Order name: Troponin (emerg Dept Use Only); Complete Time: 15:50 pm1 11/24 13:27 Order name: Procalcitonin; Complete Time: 15:50 pm1 11/24 13:27 Order name: Lactate; Complete Time: 15:24 pm1 11/24 13:27 Order name: Urine Microscopic Only EDMS 11/24 13:27 Order name: Basic Metabolic Panel; Complete Time: 15:50 EDMS 11/24 13:27 Order name: CBC with Automated Diff; Complete Time: 15:01 EDMS 11/24 13:27 Order name: CT Head Brain wo Cont; Complete Time: 14:25 pm1 11/24 13:27 Order name: XRAY Chest (1 view); Complete Time: 14:53 pm1 11/24 13:27 Order name: EKG; Complete Time: 13:28 pm1 11/24 13:27 Order name: Cardiac monitoring; Complete Time: 14:13 pm1 11/24 13:27 Order name: EKG - Nurse/Tech; Complete Time: 14:13 pm1 11/24 13:27 Order name: IV Saline Lock; Complete Time: 14:49 pm1 11/24 13:27 Order name: Labs collected and sent; Complete Time: 14:49 pm1 11/24 13:27 Order name: O2 Per Protocol; Complete Time: 13:33 pm1 11/24 13:27 Order name: O2 Sat Monitoring; Complete Time: 13:33 pm1 11/24 14:14 Order name: Foot Right 3 View XRAY; Complete Time: 15:50 pm1 11/24 16:23 Order name: SARS-COV-2 RT PCR; Complete Time: 16:25 EDMS 11/24 23:01 Order name: Troponin I; Complete Time: 23:12 EDMS Administered Medications: 18:45 Drug: Magnesium Sulfate 1 grams Route: IVPB; Infused Over: 1 hrs; Site: left forearm; sv 21:00 Follow up: Response: No adverse reaction; IV Status: Completed infusion ea Disposition: 11/25 07:00 Co-signature as Attending Physician, Brian Gunter MD I agree with the assessment and rn plan of care. Attestation: The patient's history, exam findings, diagnostics, and a summary of any interventions or procedures was reviewed in detail with gY Friend NP. Disposition Summary: 11/24/20 17:59 Hospitalization Ordered Hospitalization Status: Observation pm1 Provider: Juan C Brody pm1 Condition: Stable pm1 Problem: new pm1 Symptoms: have improved pm1 Bed/Room Type: Standard pm1 Location: Intensive Care Unit(11/25/20 02:25) cg Room Assignment: 5-(11/25/20 02:25) cg Diagnosis - Elevated troponin pm1 - Delirium pm1 - Coronavirus infection, unspecified pm1 Forms: - Medication Reconciliation Form pm1 - SBAR form pm1 Signatures: Dispatcher [employer] EDMS Hanna Roberto RN RN sv Brian Gunter MD MD rn Garcia, Cindy, RN RN cg Marinas, Patrick, NP NP pm1 Niya Blanco RN RN rd1 Naty Holcomb RN, ea Corrections: (The following items were deleted from the chart) 11/24 15:08 13:28 CORONAVIRUS+BRZ ordered. EDMS EDMS 18:29 18:18 Home Meds: atorvastatin 40 mg Oral tab 1 tab once daily; sv sv 18:29 18:18 Home Meds: hydrocodone-acetaminophen 10-325 mg Oral tab 1 tab every 6 hours; sv sv 18:29 18:18 Home Meds: isosorbide mononitrate 20 mg Oral tab 1 tab; sv sv 18:29 18:18 Home Meds: metoprolol tartrate 50 mg Oral tab 1 tab once daily; sv sv 18:29 18:18 Home Meds: tramadol 300 mg Oral TM24 1 tab once daily; sv sv 18:29 18:18 Home Meds: tramadol 300 mg Oral BP17 1 cap once daily; sv sv 19:15 17:59 Telemetry/MedSurg (observation) pm1 rd1 19:15 17:59 pm1 rd1 11/25 02:25 11/24 19:15 [facility] ER HOLD rd1 cg 11/25 02:25 11/24 19:15 ERHOLD- rd1 cg
[2020-11-24] MEDS ORDERED: MAGNESIUM SULFATE 1 gm IVPB 1 GM/100 ML BAG IV ONE (18:59)
[2020-11-24] MEDS ORDERED: ONDANSETRON 4 MG/2 ML VIAL IV PRN (20:51)
[2020-11-24] MEDS: OXcarbazepine 150 MG TAB PO SCH (23:01)
[2020-11-24] MEDS: GABAPENTIN 300 MG CAP PO SCH (23:01)
[2020-11-24 23:50] LABS: Protime INR 1.07
[2020-11-25] MEDS ORDERED: GABAPENTIN 300 MG CAP ONE (02:11)
[2020-11-25] MEDS ORDERED: OXcarbazepine 150 MG TAB ONE (02:23)
--- NOTE | 2020-11-25 03:00 | P.HP ---
Certification for Inpatient Patient admitted to: Observation With expected LOS: <2 Midnights Practitioner: I am a practitioner with admitting privileges, knowledge of patient current condition, hospital course, and medical plan of care. Services: Services provided to patient in accordance with Admission requirements found in Title 42 Section 412.3 of the Code of Federal Regulations Patient History Date of Service: 11/25/20 Reason for admission: AMS History of Present Illness: Mr. Martinez is a 70 yo M with CAD, HTN, and GERD here today for complaints of right foot pain. Per daughter, he fell on Tuesday and went to [facility]. They told him they wanted to transfer him for evaluation of his heart but he left AMA. His daughter also reports that he has had mental status changes for the past few months. CT head shows area of infarction in deep left frontal lobe white matter near head of caudate is favored to be remote, favoring an old infarction. Xray of the foot is within normal limits. Trop 0.14, BNP 1103. Plt 106. Mg 1.5. Incidentally found to be COVID positive. Allergies codeine [Codeine] Allergy (Verified 09/28/20 21:54) Nausea/Vomiting Home Medications: Gabapentin 300 mg PO QID 03/26/12 Oxcarbazepine 600 mg PO TID 03/26/12 Tramadol HCl [Tramadol HCl ER] 300 mg PO DAILY 03/26/12 Hydrocodone Bit/Acetaminophen [Hydrocodon-Acetaminophen 5-325] 1 each PO Q6HP PRN #40 tablet 06/04/12 Meclizine HCl [Motion Relief] 25 mg PO BID PRN 01/13/15 Metoprolol Tartrate [Lopressor*] 50 mg PO DAILY 02/14/19 Pantoprazole [Protonix Tab*] 40 mg PO DAILY 02/14/19 Ticagrelor [Brilinta*] 11/24/20 - Past Medical/Surgical History Has patient received pneumonia vaccine in the past: Yes Diabetic: No -: GERD, HTN, KIDNEY STONES, [place], CAD -: PROSTATE, LITHOTRIPSY, ENDARTERECTOMY RIGHT CAROTID, MULTIPLE STENTS Psychosocial/ Personal History: Patient lives at home with family - Family History Mother -: Cancer Brother -: Cancer Sister -: Cancer - Social History Smoking Status: Current every day smoker Alcohol use: No CD- Drugs: No Caffeine use: Yes Place of Residence: Home Review of Systems 10-point ROS is otherwise unremarkable Musculoskeletal: Foot Pain Neurological: Confusion Physical Examination - Vital Signs Temperature: 97.9 F Blood Pressure: 146/73 Pulse: 68 Respirations: 16 Pulse Ox (%): 97 - Physical Exam General: Alert, In no apparent distress HEENT: Atraumatic, PERRLA, Mucous membr. moist/pink, EOMI, Sclerae nonicteric Neck: Supple, 2+ carotid pulse no bruit, No LAD, Without JVD or thyroid abnormality Respiratory: Clear to auscultation bilaterally, Normal air movement Cardiovascular: Regular rate/rhythm, Normal S1 S2 Gastrointestinal: Normal bowel sounds, No tenderness Musculoskeletal: No tenderness Integumentary: No rashes Neurological: Normal speech, Normal strength at 5/5 x4 extr, Normal tone, Sensation intact, Cranial nerves 3-12 intact, Abnormal affect Lymphatics: No axilla or inguinal lymphadenopathy - Studies Laboratory Data (last 24 hrs) 11/24/20 14:45: WBC 4.60, Hgb 11.2 L, Hct 33.7 L, Plt Count 106 L 11/24/20 14:45: Sodium 137, Potassium 4.5, BUN 20 H, Creatinine 1.17, Glucose 90, Magnesium 1.5 L, Total Bilirubin 0.4, AST 94 H, ALT 21, Alkaline Phosphatase 99 Assessment and Plan - Plan Assessment AMS, old infarction on CT Head Elevated troponin, history of CAD Hypomagnesemia COVID+ finding GERD HTN Plan AMS, old infarction on CT Head - MRI w/wo contrast in the AM, outpatient neurology followup Elevated troponin, history of CAD - trend troponins, ECHO pending, lipid panel pending, outpatient cardiology followup Hypomagnesemia - magnesium replacement protocol COVID+ finding - continue to monitor for symptoms GERD - stable, continue to monitor HTN - stable, continue to monitor DVT ppx Discharge Plan: Home Plan to discharge in: 24 Hours - Advance Directives Does patient have a Living Will: No Does patient have a Durable POA for Healthcare: No - Code Status/Comfort Care Code Status Assessed: Yes (full code ) Critical Care: No Time Spent Managing Pts Care (In Minutes): 70
[2020-11-25] MEDS ORDERED: METOPROLOL TAR 50 MG TAB PO SCH (05:21)
[2020-11-25 05:52] LABS: Absolute Lymphocytes (CBC) 0.7 K/uL (0.7-4.9); Basophils % 0.3 % (0-1.3); Hematocrit 33.2 % (39.6-49.0); Lymphocytes % 21.7 % (15.3-44.8); MPV 8.7 fL (7.6-11.3); RBC Red Blood Cell Count 3.42 M/uL (4.33-5.43)
[2020-11-25 06:05] LABS: Albumin 3.2 g/dL (3.4-5.0); Bilirubin Total 0.5 mg/dL (0.2-1.0); Magnesium 1.5 mg/dL (1.8-2.4); Phosphorus 2.7 mg/dL (2.5-4.9); Potassium 3.8 mmol/L (3.5-5.1); Protein, Total 7.1 g/dL (6.4-8.2); Thyroid Stimulating Hormone 0.942 uIU/mL (0.360-3.740)
[2020-11-25] MEDS ORDERED: Magnesium Sulfate 2gm IVPB 2 G/50 ML BAG IV ONE (06:23)
[2020-11-25 07:04] LABS: Blood Morphology Comment NOT SEEN (NOT SEEN); Platelet Estimate DECR; White Blood Cell Scan OK (OK)
[2020-11-25] MEDS ORDERED: POTASSIUM 25 MEQ EFFERV TAB PO ONE (08:00)
[2020-11-25] MEDS: GABAPENTIN 300 MG CAP PO SCH ×4 (08:48→20:27)
[2020-11-25] MEDS: OXcarbazepine 150 MG TAB PO SCH ×3 (09:00→20:27)
--- NOTE | 2020-11-25 11:48 | RAD REPORT ---
EXAM DESCRIPTION: MRI - Brain W/Wo Cont - 11/25/2020 10:28 am CLINICAL HISTORY: Confusion/alteration of consciousness COMPARISON: head CT November 24, 2020 TECHNIQUE: Axial, sagittal, and coronal magnetic images of the brain were obtained. 20 cc MultiHance administered intravenously FINDINGS: A 3 centimeter area of abnormal signal within the left basal ganglia has the appearance of an acute infarction. It demonstrates mild enhancement. The ventricles are normal in caliber. An extra-axial fluid collection is not noted. Fluid within the sinuses/mastoids is not seen IMPRESSION: 3 centimeter acute infarction left basal ganglia Patient's nurse America from the ICU was notified 11:43 a.m. 11/25/2020
[2020-11-25] MEDS: FOLIC ACID 1 MG TABLET PO SCH (16:13)
[2020-11-25] MEDS: ASPIRIN EC 81 MG TAB PO SCH (16:13)
[2020-11-25] MEDS: CLOPIDOGREL 75 MG TABLET PO SCH (16:13)
--- NOTE | 2020-11-25 17:56 | P.PN ---
Subjective Date of Service: 11/25/20 Chief Complaint: AMS Patient with low volume speech, not forthcoming. He may not be comprehending questions and follows commands intermittently. Unable to obtain subjective complain. Physical Examination - Vital Signs Temperature: 98.9 F Blood Pressure: 127/64 Pulse: 75 Respirations: 21 Pulse Ox (%): 98 - Physical Exam General: In no apparent distress, Oriented x2 HEENT: Mucous membr. moist/pink Neck: JVD not distended Respiratory: Clear to auscultation bilaterally, Normal air movement Cardiovascular: No edema, Regular rate/rhythm, Normal S1 S2 Gastrointestinal: Normal bowel sounds, Soft and benign, Non-distended Musculoskeletal: No swelling, No tenderness Integumentary: No rashes, No erythema Neurological: Cranial nerves 3-12 intact, Other (Could not assess motor Fully but patient seems to move all extremities spontaneously.) - Studies Laboratory Data (last 24 hrs) 11/25/20 05:26: Troponin I 0.11 H 11/25/20 05:26: Sodium 135 L, Potassium 3.8, BUN 19 H, Creatinine 0.87, Glucose 92, Phosphorus 2.7, Magnesium 1.5 L, Total Bilirubin 0.5, AST 83 H, ALT 21, Alkaline Phosphatase 94, Triglycerides 96, Cholesterol 163, HDL Cholesterol 37 L, Cholesterol/HDL Ratio 4.41 11/25/20 05:26: WBC 3.20 L D, Hgb 11.6 L, Hct 33.2 L, Plt Count 96 L 11/24/20 23:15: PT 12.3, INR 1.07 11/24/20 22:15: Troponin I 0.12 H Assessment And Plan - Current Problems (Diagnosis) (1) Acute CVA (cerebrovascular accident) Current Visit: Yes Status: Acute (2) COVID-19 virus infection Current Visit: Yes Status: Acute (3) Hypertension Current Visit: No Status: Chronic Qualifiers: Hypertension type: essential hypertension Qualified Code(s): I10 - Ess ential (primary) hypertension (4) Altered mental status Current Visit: Yes Status: Acute (5) Elevated troponin Current Visit: Yes Status: Acute (6) CAD (coronary artery disease) Current Visit: No Status: Acute Qualifiers: Coronary Disease-Associated Artery/Lesion type: bypass graft [place] vs. transplanted heart: [place] heart Associated angina: without angina Qualified Code(s): I25.810 - Atherosclerosis of coronary artery bypass graft(s) without angina pectoris - Plan Altered mental status likely secondary to acute CVA. Patient is asymptomatic from the COVID 19 infection. MRI of the brain result reviewed and reporting basal ganglia acute CVA. Patient started on aspirin. Cannot IV Plavix given significant thrombocytopenia. Neurology consulted. Obtain carotid Doppler and echocardiogram. MRA of the head and neck. Speech therapy consult PT consult. Elevated troponin likely secondary to demand ischemia. Troponin trended flat.
--- NOTE | 2020-11-25 19:17 | EKG ---
Test Date: 2020-11-24 Test Time: 14:07:20 Driver Sales: MAKSIM MEASUREMENT RESULTS: Intervals: Rate: 89 KS: 156 QRSD: 90 QT: 378 QTc: 459 [place]: P: 69 KS: 156 QRS: 27 T: 44 INTERPRETIVE STATEMENTS: Normal sinus rhythm Possible Inferior infarct, age undetermined Abnormal ECG Compared to ECG 09/28/2020 13:17:36 No significant changes Electronically Signed On 11-25-20 19:14:01 CDT by Wilbert Zamorano
[2020-11-25] MEDS: ATORVASTATIN 20 MG TAB PO SCH (20:27)
[2020-11-25] MEDS ORDERED: MAGNESIUM SULFATE 1 gm IVPB 1 GM/100 ML BAG IV ONE (20:39)
--- NOTE | 2020-11-25 21:20 | RAD REPORT ---
EXAM DESCRIPTION: US - CP - 11/25/2020 5:58 pm CLINICAL HISTORY: Acute CVA COMPARISON: Carotid Artery Bilateral dated 02/20/2019; Brain W/Wo Cont dated 11/25/2020 TECHNIQUE: Real-time sonographic evaluation of both carotid systems was performed. Doppler interroga tion was performed with waveform tracing bilaterally. FINDINGS: Left: Hard and mixed plaque involving the left ICA. Peak systolic velocities on the left s demarcus are 267, 72, and 163 cm/s of the ICA, CCA, and ECA, respectively. This is consistent with a >70% stenosis of the left ICA. ICA/CCA PSV: 3.70 Right: Soft plaque identified of the right ICA. The peak systolic velocities on the right side are 75 , 81, and 99 cm/s of the ICA, CCA, ECA, respectively. No hemodynamically significant stenosis. ICA/CC A PSV: 0.94 Antegrade flow in the bilateral vertebral arteries. IMPRESSION: Left carotid system: Greater than 70% stenosis of the left ICA. Right carotid system: No hemodynamically significant stenoses.
[2020-11-26 05:18] LABS: Phosphorus 3.1 mg/dL (2.5-4.9); Potassium 3.9 mmol/L (3.5-5.1)
[2020-11-26] MEDS: METOPROLOL TAR 50 MG TAB PO SCH (08:34)
[2020-11-26] MEDS: OXcarbazepine 150 MG TAB PO SCH ×3 (08:34→20:40)
[2020-11-26] MEDS: CLOPIDOGREL 75 MG TABLET PO SCH (08:35)
[2020-11-26] MEDS: FOLIC ACID 1 MG TABLET PO SCH (08:35)
[2020-11-26] MEDS: GABAPENTIN 300 MG CAP PO SCH ×4 (08:35→20:40)
[2020-11-26] MEDS: ASPIRIN EC 81 MG TAB PO SCH (08:35)
--- NOTE | 2020-11-26 08:47 | ECHO ---
HEIGHT: 5 ft 9 in WEIGHT: 158 lb 0 oz DATE OF STUDY: 11/25/[address]: Juan C Brody 2-DIMENSIONAL: YES M.MODE: YES DOPPLER: YES COLOR FLOW: YES TDS: YES PORTABLE: NO DEFINITY: NO BUBBLE STUDY: NO DIAGNOSIS: SYNCOPE CARDIAC HISTORY: CATHERIZATION: SURGERY: PROSTHETIC VALVE: PACEMAKER: MEASUREMENTS (cm) DIASTOLIC (NORMALS) SYSTOLIC (NORMALS) IVSd 0.7 (0.6-1.2) LA Diam (1.9-4.0) LVEF 49% LVIDd 3.7 (3.5-5.7) LVIDs 2.8 (2.0-3.5) %FS 24% LVPWd 0.7 (0.6-1.2) Ao Diam 3.3 (2.0-3.7) 2 DIMENSIONAL ASSESSMENT: RIGHT ATRIUM: NORMAL LEFT ATRIUM: NORMAL RIGHT VENTRICLE: NORMAL LEFT VENTRICLE: NORMAL TRICUSPID VALVE: NORMAL MITRAL VALVE: NORMAL PULMONIC VALVE: NORMAL AORTIC VALVE: NORMAL PERICARDIAL EFFUSION: NONE AORTIC ROOT: NORMAL LEFT VENTRICULAR WALL MOTION: MILD GLOBAL HYPOKINESIS. DOPPLER/COLOR FLOW: NORMAL COMMENTS: TECHNICALLY DIFFICULT STUDY. MILD GLOBAL HYPOKINESIS. LEFT VENTRICULAR EJECTION FRACTION 49%. NO EFFUSION. TECHNOLOGIST: Krian HERNADEZ
--- NOTE | 2020-11-26 15:02 | RAD REPORT ---
EXAM DESCRIPTION: MRI - MRA Head Wo Cont - 11/26/2020 2:38 pm CLINICAL HISTORY: CVA COMPARISON: None. TECHNIQUE: Magnetic resonance angiogram was performed. 3D MIPS reconstruction performed FINDINGS: The anterior cerebral, middle cerebral, posterior cerebral, distal internal carotid and ba silar arteries do not demonstrate a significant stenosis. An aneurysm is not displayed. IMPRESSION: No acute abnormality is displayed
--- NOTE | 2020-11-26 15:06 | RAD REPORT ---
EXAM DESCRIPTION: MRI - MRA Neck W/Wo Cont - 11/26/2020 2:42 pm CLINICAL HISTORY: CVA COMPARISON: November 25, 2020 carotid ultrasound TECHNIQUE: Magnetic resonance angiogram of the neck was performed. 19 cc MultiHance was administered intravenously. 3D MIPS reconstruction performed FINDINGS: Marked plaque is present within the proximal left internal carotid artery The remainder of the common carotid, internal carotid and external carotid arteries do not demonstrat e a significant stenosis. An aneurysm is not seen. The vertebral arteries are codominant without visualization of an abnormality. IMPRESSION: Severe plaque within the proximal left internal carotid artery resulting in an approxima tely 80% stenosis NASCET criteria used. Mild 0-49% stenosis Moderate 50-69% stenosis Severe 70-99% stenosis
[2020-11-26] MEDS: ACETAMINOPHEN 500 MG TAB PO PRN (16:06)
--- NOTE | 2020-11-26 17:18 | P.PN ---
Subjective Date of Service: 11/26/20 Chief Complaint: AMS Patient is more awake and communicating today. He is oriented x3 He has no new complain. No limb weakness. Physical Examination - Vital Signs Temperature: 100.3 F Blood Pressure: 122/74 Pulse: 104 Respirations: 41 Pulse Ox (%): 99 - Physical Exam General: In no apparent distress, Oriented x3 HEENT: Mucous membr. moist/pink Neck: JVD not distended Respiratory: Normal air movement Cardiovascular: Regular rate/rhythm, Normal S1 S2 Gastrointestinal: Soft and benign, Non-distended, No tenderness Musculoskeletal: No swelling, No contractures Integumentary: No rashes, No erythema Neurological: Normal strength at 5/5 x4 extr, Cranial nerves 3-12 intact Assessment And Plan - Current Problems (Diagnosis) (1) Acute CVA (cerebrovascular accident) Current Visit: Yes Status: Acute (2) COVID-19 virus infection Current Visit: Yes Status: Acute (3) Hypertension Current Visit: No Status: Chronic Qualifiers: Hypertension type: essential hypertension Qualified Code(s): I10 - Essential (primary) hypertension (4) Altered mental status Current Visit: Yes Status: Acute (5) Elevated troponin Current Visit: Yes Status: Acute (6) CAD (coronary artery disease) Current Visit: No Status: Acute Qualifiers: Coronary Disease-Associated Artery/Lesion type: bypass graft [place] vs. transplanted heart: [place] heart Associated angina: without angina Qualified Code(s): I25.810 - Atherosclerosis of coronary artery bypass graft(s) without angina pectoris - Plan Altered mental status likely secondary to acute CVA. Patient is asymptomatic from the COVID 19 infection. MRI of the brain result reviewed and reporting left basal ganglia acute CVA. MRA neck shows 80% occlusion of the left internal carotid artery. Case discussed with neurology-Dr. Vance. Patient will need neuro intervention. Will obtain consult from neuro intervention team at [facility] for possible transfer. Patient started on aspirin. Cannot give Plavix given significant thrombocytopenia. Echocardiogram shows global hypokinesis in with EF of 49%. No thrombus. Awaiting Speech therapy evaluation and PT evaluation. Elevated troponin likely secondary to demand ischemia. Troponin trended flat.
[2020-11-26] MEDS: MECLIZINE HCL 12.5 MG TAB PO SCH ×2 (17:49→22:55)
[2020-11-26] MEDS: ATORVASTATIN 20 MG TAB PO SCH (20:40)
--- NOTE | 2020-11-26 22:20 | CON ---
Reason For Consultation: Consultation called because of altered mental status and stroke. History Of Present Illness: Mr. Martinez is a 70-year-old patient with multiple medical problems and stroke risk factors including coronary artery disease, status post multiple cardiac stents and a rig ht carotid endarterectomy along with hypertension, who comes to [facility] with several days of right foot pain, weakness, and confusion. The patient was initially seen at [facility] but left against medical advice. He had a head CT scan that showed possible infarction in the left fron santos lobe. It was felt to be actually not acute but more remote. He was also found to be positive fo r COVID-19. The patient eventually came to [facility] on 11/25/2020 with those symptoms. H is head CT scan showed an area of infarction in the deep left frontal lobe near to head of the caudat e, which was favored to be remote and there was atrophy and chronic ischemic change identified. Albright laura, he had a brain MRI subsequently, which identified an acute infarct that is 3 cm in size in the l eft basal ganglia, which explained some of the patient's right-sided symptoms. Furthermore, his neck magnetic resonance angiogram showed severe plaque in the proximal left internal carotid artery measu ring around 80% stenosis. Magnetic resonance angiogram of his brain showed no significant abnormalit ies. His echocardiogram showed 49% ejection fraction with no effusions. Mild global hypokinesis. H is carotid artery ultrasound identified greater than 70% stenosis of the left internal carotid artery and no hemodynamically significant stenosis on the right carotid artery. Blood work showed no signi ficant abnormalities on complete blood count with differential on coagulation panel, and his electrol yte panel and basic metabolic panel showed slightly low sodium, elevated BUN consistent with mild deh ydration, low calcium of 8, low magnesium 1.5, which has been corrected. Troponin was also found to be elevated. His HDL cholesterol was low at 37, LDL cholesterol 107, thyroid function study normal. Urine essentially unremarkable and again positive for COVID-19. Since his hospitalization, his altered mental status is actually improving somewhat. He is following instructions although with repeated commands to cross the midline when asked to do so such as taking the left index finger and touching the right earlobe. Past Medical History: As noted in addition to peripheral neuropathy treated with gabapentin, gastroe sophageal reflux, kidney stones. Surgical History: Prostate surgery, lithotripsy, carotid endarterectomy on the right and cardiac consuelo nts. Allergies: CODEINE. Medications: At home gabapentin 300 mg 4 times daily, Oxcarbazepine 600 mg 3 times daily, tramadol 3 00 mg daily, [place] 5/325 every 6 hours as needed, meclizine 25 mg twice daily as needed, Lopressor 50 mg daily, Protonix 40 mg daily, Brilinta daily. Family History: Positive for cancer in mother, brother and sister. Social History: The patient smokes up to pack of cigarettes daily and drinks caffeinated beverages. Denies alcohol use. Review of Systems: Foot pain and there was obvious confusion and right-sided weakness in arm and leg and that is improvi ng somewhat. Otherwise, some mild cough with no fevers and chills. Physical Examination: Vital Signs: Blood pressure 133/77, pulse of 118, respiratory rate . Temperature up to 10 0.3, weight 158 pounds, height 5 feet 9 inches, BMI 23.3, oxygen saturation 97 to 99%. General: Mr. Martinez is resting in bed. He has finished eating his lunch. HEENT: He appears to be normocephalic and atraumatic. His sclerae are anicteric. Oropharynx is pin k and moist. Neck: Appears supple. Chest: Decreased breath sounds bilaterally. Neurological: He is alert and oriented to person, but takes extra encouragement to follow the simple commands. Cranial nerves did not show an obvious focal deficit. In terms of motor examination, he does move both arms slowly, perhaps less so on the right with mild weakness noted, maybe 4+/5 right u pper extremity. Lower extremities similarly so but on the left side intact strength. Coordination i ntact. He does have some difficulty in following complex commands. He has some difficulty with repe tition. Reflexes are symmetric. Sensation decreased in a stocking-glove fashion. The patient was n ot ambulated and requires a gait belt and would be up with physical therapy. Assessment And Plan: Mr. 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 He will be best served by an emergent right carotid endarterectomy versus a stent proc edure. In the interim, he should be on aspirin along with Plavix, Lipitor 20 mg at night, folic acid 1 mg daily. Continue with mild permissive hypertension. Continue gabapentin and the patient may be transferred to [facility] for further higher level of care. SHANT/JORGE Voice ID: [id number] Report ID: [id number]
[2020-11-27] MEDS: MECLIZINE HCL 12.5 MG TAB PO SCH ×2 (04:58→12:21)
[2020-11-27] MEDS: OXcarbazepine 150 MG TAB PO SCH ×3 (08:46→21:00)
[2020-11-27] MEDS: METOPROLOL TAR 50 MG TAB PO SCH (08:46)
[2020-11-27] MEDS: ASPIRIN EC 81 MG TAB PO SCH (08:47)
[2020-11-27] MEDS: CLOPIDOGREL 75 MG TABLET PO SCH (08:47)
[2020-11-27] MEDS: FOLIC ACID 1 MG TABLET PO SCH (08:47)
[2020-11-27] MEDS: GABAPENTIN 300 MG CAP PO SCH ×4 (08:47→21:00)
[2020-11-27] MEDS: ENSURE ENLIVE 237 ML CAN PO SCH ×2 (09:00→21:02)
--- NOTE | 2020-11-27 13:24 | P.PN ---
Subjective Date of Service: 11/27/20 Chief Complaint: AMS Patient is drowsy today oral intake is poor today. No limb weakness. Physical Examination - Vital Signs Temperature: 99.4 F Blood Pressure: 108/63 Pulse: 80 Respirations: 34 Pulse Ox (%): 100 - Physical Exam General: Other (Drowsy) HEENT: Mucous membr. moist/pink Neck: JVD not distended Respiratory: Clear to auscultation bilaterally, Normal air movement Cardiovascular: No edema, Regular rate/rhythm, Normal S1 S2 Gastrointestinal: Soft and benign, Non-distended, No tenderness Musculoskeletal: No swelling Integumentary: No rashes Neurological: Other (No focal motor deficit.) Assessment And Plan - Current Problems (Diagnosis) (1) Acute CVA (cerebrovascular accident) Current Visit: Yes Status: Acute (2) COVID-19 virus infection Current Visit: Yes Status: Acute (3) Hypertension Current Visit: No Status: Chronic Qualifiers: Hypertension type: essential hypertension Qualified Code(s): I10 - Essential (primary) hypertension (4) Altered mental status Current Visit: Yes Status: Acute (5) Elevated troponin Current Visit: Yes Status: Acute (6) CAD (coronary artery disease) Current Visit: No Status: Acute Qualifiers: Coronary Disease-Associated Artery/Lesion type: bypass graft [place] vs. transplanted heart: [place] heart Associated angina: without angina Qualified Code(s): I25.810 - Atherosclerosis of coronary artery bypass graft(s) without angina pectoris (7) Carotid artery stenosis Current Visit: Yes Status: Acute - Plan Altered mental status likely secondary to acute CVA. Patient is also on other psychotropic medications including gabapentin, [place] and meclizine. Patient is asymptomatic from the COVID 19 infection. MRI of the brain result reviewed and reporting left basal ganglia acute CVA. MRA neck shows 80% occlusion of the left internal carotid artery. Case discussed with neurology-Dr. Vance. Patient will need neuro intervention. I spoke to neuro ex chef Dr. Lamar at [facility] who noted her left internal carotid stenosis is an incidental finding and not likely related to the acute CVA in the brainstem. He recommended neuro intervention within 6-8 weeks. Continue aspirin. Cannot give Plavix given significant thrombocytopenia. Echocardiogram shows global hypokinesis in with EF of 49%. No thrombus. Elevated troponin likely secondary to demand ischemia. Troponin trended flat. PT to evaluate patient for discharge planning.
[2020-11-27] MEDS: ACETAMINOPHEN 500 MG TAB PO PRN ×2 (21:02→23:02)
[2020-11-27] MEDS: ATORVASTATIN 20 MG TAB PO SCH (21:04)
[2020-11-27] MEDS: NA CHLORIDE 0.9% 1,000 ML IV SCH (23:00)
[2020-11-27] MEDS ORDERED: NA CHLORIDE 0.9% 1,000 ML ONE (23:21)
[2020-11-28 07:05] LABS: Potassium 3.7 mmol/L (3.5-5.1)
[2020-11-28] MEDS: GABAPENTIN 300 MG CAP PO SCH ×3 (09:00→12:53)
[2020-11-28] MEDS: OXcarbazepine 150 MG TAB PO SCH ×3 (09:00→12:57)
[2020-11-28] MEDS: ENSURE ENLIVE 237 ML CAN PO SCH ×2 (09:00→20:43)
[2020-11-28] MEDS: FOLIC ACID 1 MG TABLET PO SCH (09:31)
[2020-11-28] MEDS: METOPROLOL TAR 50 MG TAB PO SCH (09:31)
[2020-11-28] MEDS: ASPIRIN EC 81 MG TAB PO SCH (09:31)
[2020-11-28] MEDS: CLOPIDOGREL 75 MG TABLET PO SCH (09:31)
[2020-11-28] MEDS: NA CHLORIDE 0.9% 1,000 ML IV SCH ×2 (09:51→19:15)
--- NOTE | 2020-11-28 12:55 | P.PN ---
Subjective Date of Service: 11/28/20 Chief Complaint: AMS Patient is drowsy remain drowsy most of the day. No limb weakness. He has no problem with swallowing. Physical Examination - Vital Signs Temperature: 98.9 F Blood Pressure: 86/52 Pulse: 80 Respirations: 23 Pulse Ox (%): 97 - Physical Exam General: Other (Drowsy) HEENT: Mucous membr. moist/pink Respiratory: Clear to auscultation bilaterally, Normal air movement Cardiovascular: Regular rate/rhythm, Normal S1 S2 Gastrointestinal: Soft and benign, Non-distended, No tenderness Musculoskeletal: No swelling Integumentary: No rashes, No erythema Neurological: Normal strength at 5/5 x4 extr, Cranial nerves 3-12 intact Assessment And Plan - Current Problems (Diagnosis) (1) Acute CVA (cerebrovascular accident) Current Visit: Yes Status: Acute (2) COVID-19 virus infection Current Visit: Yes Status: Acute (3) Hypertension Current Visit: No Status: Chronic Qualifiers: Hypertension type: essential hypertension Qualified Code(s): I10 - Essential (primary) hypertension (4) Altered mental status Current Visit: Yes Status: Acute (5) Elevated troponin Current Visit: Yes Status: Acute (6) CAD (coronary artery disease) Current Visit: No Status: Acute Qualifiers: Coronary Disease-Associated Artery/Lesion type: bypass graft [place] vs. transplanted heart: [place] heart Associated angina: without angina Qualified Code(s): I25.810 - Atherosclerosis of coronary artery bypass graft(s) without angina pectoris (7) Carotid artery stenosis Current Visit: Yes Status: Acute - Plan Altered mental status likely secondary to acute CVA. Patient is also on other psychotropic medications including gabapentin, [place] and meclizine. Patient is asymptomatic from the COVID 19 infection. MRI of the brain result reviewed and reporting left basal ganglia acute CVA. MRA neck shows 80% occlusion of the left internal carotid artery. Case discussed with neurology-Dr. Vance. Patient will need neuro intervention. I spoke to neuro predatory animal exterminator Dr. Lamar at [facility] who noted her left internal carotid stenosis is an incidental finding and not likely related to the acute CVA in the brainstem. He recommended neuro intervention within 6-8 weeks. Hold gabapentin, Trileptal and meclizine until mental status improve. Feeding as tolerated. Continue aspirin. Cannot give Plavix given significant thrombocytopenia. Echocardiogram shows global hypokinesis in with EF of 49%. No thrombus. Elevated troponin likely secondary to demand ischemia. Troponin trended flat. PT to evaluate patient for discharge planning. [place] for feeding if patient don't wake up soon.
[2020-11-28] MEDS: ATORVASTATIN 20 MG TAB PO SCH (20:37)
[2020-11-28] MEDS: ACETAMINOPHEN 500 MG TAB PO PRN (21:31)
[2020-11-29] MEDS: NA CHLORIDE 0.9% 1,000 ML IV SCH ×2 (04:59→12:23)
[2020-11-29 05:40] LABS: Absolute Lymphocytes (CBC) 0.7 K/uL (0.7-4.9); Basophils % 0.3 % (0-1.3); Hematocrit 32.3 % (39.6-49.0); Lymphocytes % 14.9 % (15.3-44.8); MPV 8.6 fL (7.6-11.3); RBC Red Blood Cell Count 3.33 M/uL (4.33-5.43)
[2020-11-29 06:06] LABS: Potassium 3.3 mmol/L (3.5-5.1)
[2020-11-29] MEDS ORDERED: POTASSIUM CL SA 10 MEQ TAB PO ONE ×2 (07:30→16:12)
[2020-11-29] MEDS: ASPIRIN EC 81 MG TAB PO SCH (08:09)
[2020-11-29] MEDS: METOPROLOL TAR 50 MG TAB PO SCH ×2 (08:09→21:15)
[2020-11-29] MEDS: CLOPIDOGREL 75 MG TABLET PO SCH (08:09)
[2020-11-29] MEDS: FOLIC ACID 1 MG TABLET PO SCH (08:09)
[2020-11-29] MEDS: ENSURE ENLIVE 237 ML CAN PO SCH ×3 (08:10→21:16)
--- NOTE | 2020-11-29 13:37 | P.PN ---
Subjective Date of Service: 11/29/20 Chief Complaint: AMS Patient is awake and communicating meaningfully He is drinking but not eating solid food. Nursing staff report he is weak and needs assistance even with turning in bed. Physical Examination - Vital Signs Temperature: 99.0 F Blood Pressure: 146/71 Pulse: 84 Respirations: 33 Pulse Ox (%): 99 - Physical Exam General: In no apparent distress, Other (Awake and communicating today) Neck: JVD not distended Respiratory: Other (Nonlabored breathing) Cardiovascular: No edema, Regular rate/rhythm, Normal S1 S2 Gastrointestinal: Soft and benign, Non-distended Musculoskeletal: No swelling Neurological: Other (Moves all extremities) Assessment And Plan - Current Problems (Diagnosis) (1) Acute CVA (cerebrovascular accident) Current Visit: Yes Status: Acute (2) COVID-19 virus infection Current Visit: Yes Status: Acute (3) Hypertension Current Visit: No Status: Chronic Qualifiers: Hypertension type: essential hypertension Qualified Code(s): I10 - Essential (primary) hypertension (4) Altered mental status Current Visit: Yes Status: Acute (5) Elevated troponin Current Visit: Yes Status: Acute (6) CAD (coronary artery disease) Current Visit: No Status: Acute Qualifiers: Coronary Disease-Associated Artery/Lesion type: bypass graft [place] vs. transplanted heart: [place] heart Associated angina: without angina Qualified Code(s): I25.810 - Atherosclerosis of coronary artery bypass graft(s) without angina pectoris (7) Carotid artery stenosis Current Visit: Yes Status: Acute - Plan Altered mental status likely secondary to acute CVA. Patient is also on other psychotropic medications including gabapentin, [place] and meclizine. Patient is asymptomatic from the COVID 19 infection. MRI of the brain result reviewed and reporting left basal ganglia acute CVA. MRA neck shows 80% occlusion of the left internal carotid artery. Case discussed with neurology-Dr. Vance who recommended neuro intervention. I spoke to neuro boat diesel motor mechanic Dr. Lamar at [facility] who noted her left internal carotid stenosis is an incidental finding and not likely related to the acute CVA in the brainstem. He recommended neuro intervention within 6-8 weeks. Hold gabapentin, Trileptal and meclizine until mental status improve. Feeding as tolerated. Continue aspirin. Cannot give Plavix given significant thrombocytopenia. Echocardiogram shows global hypokinesis in with EF of 49%. No thrombus. Elevated troponin likely secondary to demand ischemia. Troponin trended flat. Patient noted to be generally weak needing total assistance Disposition to skilled rehab. No problem with swallowing. Encourage feeding.
[2020-11-29] MEDS: HYDRALAZINE HCL 20 MG/ML VIAL IV PRN (16:03)
[2020-11-29] MEDS: ACETAMINOPHEN 500 MG TAB PO PRN (16:21)
[2020-11-29] MEDS: ATORVASTATIN 20 MG TAB PO SCH (21:15)
[2020-11-30] MEDS: NA CHLORIDE 0.9% 1,000 ML IV SCH ×3 (00:30→20:56)
[2020-11-30] MEDS: HYDRALAZINE HCL 20 MG/ML VIAL IV PRN ×3 (02:14→23:14)
[2020-11-30 05:58] LABS: BUN Blood Urea Nitrogen 13 mg/dL (7-18); Bicarbonate 18 mmol/L (21-32); Ferritin 536.1 ng/mL (26-388); Glucose Level 86 mg/dL (74-106); Phosphorus 1.9 mg/dL (2.5-4.9); Potassium 3.1 mmol/L (3.5-5.1); Sodium Level 138 mmol/L (136-145)
[2020-11-30 06:02] LABS: Magnesium 1.3 mg/dL (1.8-2.4)
[2020-11-30] MEDS ORDERED: Magnesium Sulfate 2gm IVPB 2 G/50 ML BAG IV ONE ×3 (06:08→18:46)
[2020-11-30] MEDS ORDERED: POTASSIUM PHOS IN 0.9 % NACL 15 MMOL/250 ML BAG IV ONE ×2 (06:08→06:36)
[2020-11-30] MEDS ORDERED: POTASSIUM 25 MEQ EFFERV TAB PO ONE (08:00)
[2020-11-30] MEDS: ENSURE ENLIVE 237 ML CAN PO SCH ×2 (09:00→20:55)
[2020-11-30] MEDS: ASPIRIN EC 81 MG TAB PO SCH (10:31)
[2020-11-30] MEDS: METOPROLOL TAR 50 MG TAB PO SCH ×2 (10:31→20:54)
[2020-11-30] MEDS: FOLIC ACID 1 MG TABLET PO SCH (10:31)
[2020-11-30] MEDS: CLOPIDOGREL 75 MG TABLET PO SCH (10:31)
[2020-11-30] MEDS ORDERED: POTASSIUM CL SA 10 MEQ TAB PO ONE (11:00)
--- NOTE | 2020-11-30 13:37 | P.PN ---
Subjective Date of Service: 11/30/20 Chief Complaint: AMS Patient is awake and communicating meaningfully. He is drinking but not eating solid food. Patient has fine tremors. Physical Examination - Vital Signs Temperature: 99.2 F Blood Pressure: 158/80 Pulse: 88 Respirations: 34 Pulse Ox (%): 97 - Physical Exam General: Confused, Other (Awake) HEENT: Mucous membr. moist/pink Neck: JVD not distended Respiratory: Other (Nonlabored breathing) Cardiovascular: Regular rate/rhythm, Normal S1 S2 Gastrointestinal: Soft and benign, Non-distended, No tenderness Musculoskeletal: No swelling Integumentary: No rashes Neurological: Other (No focal motor deficit) Assessment And Plan - Current Problems (Diagnosis) (1) Acute CVA (cerebrovascular accident) Current Visit: Yes Status: Acute (2) COVID-19 virus infection Current Visit: Yes Status: Acute (3) Hypertension Current Visit: No Status: Chronic Qualifiers: Hypertension type: essential hypertension Qualified Code(s): I10 - Essential (primary) hypertension (4) Altered mental status Current Visit: Yes Status: Acute (5) Elevated troponin Current Visit: Yes Status: Acute (6) CAD (coronary artery disease) Current Visit: No Status: Acute Qualifiers: Coronary Disease-Associated Artery/Lesion type: bypass graft [place] vs. transplanted heart: [place] heart Associated angina: without angina Qualified Code(s): I25.810 - Atherosclerosis of coronary artery bypass graft(s) without angina pectoris (7) Carotid artery stenosis Current Visit: Yes Status: Acute - Plan Altered mental status likely secondary to acute CVA. Patient is also on other psychotropic medications including gabapentin, [place] and meclizine. Patient is asymptomatic from the COVID 19 infection. MRI of the brain result reviewed and reporting left basal ganglia acute CVA. MRA neck shows 80% occlusion of the left internal carotid artery. Case discussed with neurology-Dr. Vance who recommended neuro intervention. I spoke to neuro brass reclaimer Dr. Lamar at [facility] who noted her left internal carotid stenosis is an incidental finding and not likely related to the acute CVA in the brainstem. He recommended neuro intervention within 6-8 weeks. Feeding as tolerated. Continue aspirin. Thrombocytopenia improved. Add plavix. Echocardiogram shows global hypokinesis in with EF of 49%. No thrombus. Elevated troponin likely secondary to demand ischemia. Troponin trended flat. Patient noted to be generally weak needing total assistance Disposition to skilled rehab. No problem with swallowing. Encourage feeding.
[2020-11-30 14:20] LABS: C.diff Antigen/Toxin Ag neg : Tox neg (NEG : NEG)
[2020-11-30 17:52] LABS: Magnesium 1.5 mg/dL (1.8-2.4); Potassium 3.6 mmol/L (3.5-5.1)
[2020-11-30] MEDS ORDERED: KCL 20 MEQ/100 mL IVPB 20 MEQ/100 ML BAG IV SCH (19:00)
[2020-11-30] MEDS: ATORVASTATIN 20 MG TAB PO SCH (20:54)
[2020-11-30] MEDS: ACETAMINOPHEN 500 MG TAB PO PRN (20:56)
[2020-11-30] MEDS ORDERED: OXcarbazepine 150 MG TAB PO SCH (21:00)
[2020-12-01 05:22] LABS: BUN Blood Urea Nitrogen 13 mg/dL (7-18); Bicarbonate 17 mmol/L (21-32); Ferritin 515.8 ng/mL (26-388); Glucose Level 84 mg/dL (74-106); Phosphorus 2.3 mg/dL (2.5-4.9); Potassium 3.3 mmol/L (3.5-5.1); Sodium Level 137 mmol/L (136-145)
[2020-12-01] MEDS: HYDRALAZINE HCL 20 MG/ML VIAL IV PRN ×2 (05:22→15:20)
[2020-12-01] MEDS ORDERED: KCL 20 MEQ/100 mL IVPB 20 MEQ/100 ML BAG IV SCH (07:00)
[2020-12-01] MEDS: CLOPIDOGREL 75 MG TABLET PO SCH (07:59)
[2020-12-01] MEDS: FOLIC ACID 1 MG TABLET PO SCH (07:59)
[2020-12-01] MEDS: METOPROLOL TAR 50 MG TAB PO SCH ×3 (07:59→21:00)
[2020-12-01] MEDS: ASPIRIN EC 81 MG TAB PO SCH (07:59)
[2020-12-01] MEDS: NA CHLORIDE 0.9% 1,000 ML IV SCH ×2 (08:00→17:17)
[2020-12-01] MEDS ORDERED: POTASSIUM PHOS IN 0.9 % NACL 15 MMOL/250 ML BAG IV ONE (09:00)
[2020-12-01] MEDS: ENSURE ENLIVE 237 ML CAN PO SCH ×2 (09:00→21:00)
--- NOTE | 2020-12-01 13:22 | P.PN ---
Subjective Date of Service: 12/01/20 Chief Complaint: AMS Patient is more drowsy today after starting his Trileptal. Blood work is showing metabolic acidosis. Physical Examination - Vital Signs Temperature: 97.9 F Blood Pressure: 166/82 Pulse: 80 Respirations: 22 Pulse Ox (%): 98 - Physical Exam General: Confused, Other (Drowsy) HEENT: Mucous membr. moist/pink Neck: JVD not distended Respiratory: Other (Nonlabored breathing) Cardiovascular: Regular rate/rhythm, Normal S1 S2 Gastrointestinal: Soft and benign, Non-distended, No tenderness Musculoskeletal: No swelling Integumentary: No rashes Neurological: Other (Moves all extremities spontaneously.) Assessment And Plan - Current Problems (Diagnosis) (1) Acute CVA (cerebrovascular accident) Current Visit: Yes Status: Acute (2) COVID-19 virus infection Current Visit: Yes Status: Acute (3) Hypertension Current Visit: No Status: Chronic Qualifiers: Hypertension type: essential hypertension Qualified Code(s): I10 - Essential (primary) hypertension (4) Altered mental status Current Visit: Yes Status: Acute (5) Elevated troponin Current Visit: Yes Status: Acute (6) CAD (coronary artery disease) Current Visit: No Status: Acute Qualifiers: Coronary Disease-Associated Artery/Lesion type: bypass graft [place] vs. transplanted heart: [place] heart Associated angina: without angina Qualified Code(s): I25.810 - Atherosclerosis of coronary artery bypass graft(s) without angina pectoris (7) Carotid artery stenosis Current Visit: Yes Status: Acute - Plan Altered mental status likely secondary to acute CVA. Patient is also on other psychotropic medications including gabapentin, [place] and meclizine. Patient more drowsy today after restarting his Trileptal. Discussed case with Dr. Vance. Will reduce dose by half. Patient is asymptomatic from the COVID 19 infection. MRI of the brain result reviewed and reporting left basal ganglia acute CVA. MRA neck shows 80% occlusion of the left internal carotid artery. Case discussed with neurology-Dr. Vance who recommended neuro intervention. I spoke to neuro soap maker Dr. Lamar at [facility] who noted her left internal carotid stenosis is an incidental finding and not likely related to the acute CVA in the brainstem. He recommended neuro intervention within 6-8 weeks. Daughter requesting for patient to be transferred to [facility] for he had carotid endarterectomy done on the right given his intermittent AMS. Will repeat head CT today. Feeding as tolerated. Continue aspirin and Plavix Echocardiogram shows global hypokinesis in with EF of 49%. No thrombus. Elevated troponin likely secondary to demand ischemia. Troponin trended flat. Patient noted to be generally weak needing total assistance No problem with swallowing.
--- NOTE | 2020-12-01 14:55 | RAD REPORT ---
EXAM DESCRIPTION: CT - Head Brain Wo Cont - 12/01/2020 2:48 pm CLINICAL HISTORY: AMS Headache, drowsiness COMPARISON: Head Brain Wo Cont dated 11/24/2020; Head Brain Wo Cont dated 02/20/2019; MRA Neck W/Wo Co nt dated 11/26/2020; MRA Head Wo Cont dated 11/26/2020; Brain W/Wo Cont dated 11/25/2020 TECHNIQUE: All CT scans are performed using dose optimization technique as appropriate and may inclu de automated exposure control or mA/KV adjustment according to patient size. FINDINGS: Moderate generalized brain atrophy. No intracranial hemorrhage, hydrocephalus or extra-axi al fluid collection.Diminished density left basal ganglia again seen compatible with recent infarctio n.No areas of brain edema or evidence of midline shift. Fluid is present in the sphenoid and right maxillary sinus. The calvarium is intact. IMPRESSION: No acute intracranial abnormality. Multifocal paranasal sinus fluid.
[2020-12-01 16:57] LABS: Arterial Blood Carboxyhemoglob 0.6 % (0-1.5); Blood Gas Oxyhemoglobin 96.2 % (94-97); Blood O2 Saturation 97.9 % (92-98.5)
[2020-12-01] MEDS: ATORVASTATIN 20 MG TAB PO SCH ×2 (19:59→21:00)
[2020-12-01] MEDS: OXcarbazepine 150 MG TAB PO SCH ×2 (20:00→21:00)
[2020-12-01] MEDS ORDERED: METOPROLOL TARTRATE 5 MG/5 ML INJ IV STA (20:14)
[2020-12-02] MEDS: HYDRALAZINE HCL 20 MG/ML VIAL IV PRN ×2 (00:12→06:18)
[2020-12-02] MEDS: NA CHLORIDE 0.9% 1,000 ML IV SCH ×2 (03:00→13:00)
[2020-12-02 05:13] LABS: Absolute Lymphocytes (CBC) 0.6 K/uL (0.7-4.9); Basophils % 0.2 % (0-1.3); Hematocrit 34.9 % (39.6-49.0); Lymphocytes % 7.1 % (15.3-44.8); MPV 8.3 fL (7.6-11.3); RBC Red Blood Cell Count 3.63 M/uL (4.33-5.43)
[2020-12-02 05:37] LABS: BUN Blood Urea Nitrogen 15 mg/dL (7-18); Glucose Level 78 mg/dL (74-106); Potassium 3.6 mmol/L (3.5-5.1); Sodium Level 138 mmol/L (136-145)
[2020-12-02 06:02] LABS: Bicarbonate 14 mmol/L (21-32)
[2020-12-02 06:47] LABS: Albumin 2.7 g/dL (3.4-5.0); Bilirubin Direct 0.2 mg/dL (0-0.2); Bilirubin Total 0.5 mg/dL (0.2-1.0); Ferritin 524.2 ng/mL (26-388); Magnesium 1.5 mg/dL (1.8-2.4); Protein, Total 6.5 g/dL (6.4-8.2)
[2020-12-02] MEDS ORDERED: METOPROLOL TARTRATE 5 MG/5 ML INJ IV PRN (06:53)
--- NOTE | 2020-12-02 07:08 | P.PN ---
Subjective Date of Service: 12/02/20 Chief Complaint: AMS Subjective: Other (no new changes overnight. pt remains mute, nods yes/no. follows some basic commands. HCO3 dropping still. pt is tachycardic/tachypneic. on IVF and room air) Review of Systems is unable to be obtained Physical Examination - Vital Signs Temperature: 98.0 F Blood Pressure: 173/74 Pulse: 110 Respirations: 31 Pulse Ox (%): 97 Assessment & Plan Physician Review Additional Text: Physical Exam General: Confused, nonverbal, follows basic commands intermittently HEENT: Mucous membr. moist/pink Respiratory: Nonlabored breathing, intermittent tachypnea: 30s Cardiovascular: sinus tachycardia 100-110, Normal S1 S2, no edema Gastrointestinal: Soft and benign, Non-distended, No tenderness Musculoskeletal: No swelling Integumentary: No rashes Neurological: minimally moves all 4 extremities, squeezes hands b/l, moves b/l toes. Assessment And Plan Acute Encephalopathy Acute CVA Elevated troponin, history of CAD Hypomagnesemia COVID+ GERD HTN -AMS initially with some improvement, now worsened since 12/01 -Nursing staff report clinical change since yesterday -Patient is not responding verbally, seems to nod yes/no, and seemed to understand some questions yesterday -Patient seems to understand some questions today, not following more than some very basic commands -unable to obtain accurate physical exam, but does appear more weak on the right side compared to left -Add on LFTs, procalcitonin, CRP/ferritin to labs at this morning -Acidosis appears to be worsening. mixed vs respiratory. pt has been tachypneic -ABG ordered, nephrology consulted -will obtain MRI - r/o new/evolving CVA -Dr. Vance following. 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 -Case discussed with neurology-Dr. Vance who recommended neuro intervention. Neuro check writer Dr. Lamar at [facility] who noted left internal carotid stenosis is an incidental finding and not likely related to the acute CVA in the brainstem. He recommended neuro intervention within 6-8 weeks. -Daughter requested for patient to be transferred to [facility] for he had carotid endarterectomy done on the right given his intermittent AMS. -his physician reportedly accepted patient pending bed availability in hospital in [facility], however all hospitals were at capacity when last checked yesterday -continue ASA, plavix -Echocardiogram shows global hypokinesis in with EF of 49%. No thrombus. -Elevated troponin likely secondary to demand ischemia. Troponin trended flat. -Patient noted to be generally weak needing total assistance, slightly worse on R Time Spent Managing Pts Care (In Minutes): 40
[2020-12-02] MEDS: ASPIRIN EC 81 MG TAB PO SCH (09:00)
[2020-12-02] MEDS: ENSURE ENLIVE 237 ML CAN PO SCH (09:00)
--- NOTE | 2020-12-02 09:53 | RAD REPORT ---
EXAM DESCRIPTION: RAD - Chest Single View - 12/02/2020 9:32 am CLINICAL HISTORY: tachypnea, COVID Chest pain. COMPARISON: Chest Single View dated 11/24/2020; Chest Single View dated 09/28/2020; Chest Single View dated 02/20/2019; Chest Single View dated 02/14/2019 FINDINGS: Portable technique limits examination quality. The lungs are grossly clear. The heart is normal in size. Enteric tube coils in the stomach.
[2020-12-02] MEDS ORDERED: Magnesium Sulfate 2gm IVPB 2 G/50 ML BAG IV ONE (10:00)
--- NOTE | 2020-12-02 10:13 | RAD REPORT ---
EXAM DESCRIPTION: RAD - Abdomen 1 View (KUB) - 12/02/2020 9:32 am CLINICAL HISTORY: dobhoff placement Pain COMPARISON: Abdomen 1 View (KUB) dated 08/11/2016; Abdomen 1 View (KUB) dated 07/13/2016; Abdomen 1 Vi ew (KUB) dated 06/10/2016; ABDOMEN 1 VIEW KUB dated 02/13/2015 FINDINGS: Enteric tube is coiled in the stomach.
[2020-12-02] MEDS: METOPROLOL TAR 50 MG TAB PO SCH ×2 (10:30→20:34)
[2020-12-02] MEDS: CLOPIDOGREL 75 MG TABLET PO SCH (10:30)
[2020-12-02] MEDS: FOLIC ACID 1 MG TABLET PO SCH (10:30)
[2020-12-02] MEDS: ASPIRIN 81 MG CHEWABLE TABLET PO SCH (10:32)
--- NOTE | 2020-12-02 10:39 | P.CNS ---
Date of Consult: 12/02/20 Reason for Consult: Acidosis, electrolyte derangements Requesting Physician: Felix Gunter Chief Complaint: AMS History of Present Illness: 70M w/ PMHx of Htn, CAD, & GERD who p/w R foot pain & AMS. He has had mental status decline for the past few months per his family's report. Head CT showed infarct in the deep L frontal lobe that seems to be non-acute. He also is covid positive. He has primary respiratory alkalosis + metabolic acidosis w/ multiple lateral active lesions. He has dysphagia and has minimal by mouth intake currently. Allergies codeine [Codeine] Allergy (Verified 09/28/20 21:54) Nausea/Vomiting Home Medications: Gabapentin 300 mg PO QID 03/26/12 Oxcarbazepine 600 mg PO TID 03/26/12 Tramadol HCl [Tramadol HCl ER] 300 mg PO DAILY 03/26/12 Hydrocodone Bit/Acetaminophen [Hydrocodon-Acetaminophen 5-325] 1 each PO Q6HP PRN #40 tablet 06/04/12 Meclizine HCl [Motion Relief] 25 mg PO QID 01/13/15 Metoprolol Tartrate [Lopressor*] 50 mg PO DAILY 02/14/19 Pantoprazole [Protonix Tab*] 40 mg PO DAILY 02/14/19 - Past Medical/Surgical History Diabetic: No -: GERD, HTN, KIDNEY STONES, CT, CAD -: PROSTATE, LITHOTRIPSY, ENDARTERECTOMY RIGHT CAROTID, MULTIPLE STENTS Psychosocial/ Personal History: Patient lives at home with family - Family History Mother Medical History: Cancer Brother Medical History: Cancer Sister Medical History: Cancer - Social History Smoking Status: Current every day smoker Alcohol use: No CD- Drugs: No Caffeine use: Yes Place of Residence: Home Review of Systems Other: unable to obtain accurately due to patient's altered mental status. Physical Examination Temp Pulse Resp BP Pulse Ox 98.0 F 120 H 31 H 177/83 H 97 12/02/20 10:18 12/02/20 10:32 12/02/20 10:18 12/02/20 10:32 12/02/20 10:18 General: Other (appears as his stated age) HEENT: Atraumatic, Normocephalic Neck: Supple, JVD not distended Respiratory: Diminished Cardiovascular: No rubs, No murmurs Gastrointestinal: Soft and benign, Non-distended Musculoskeletal: No warmth Integumentary: No warmth Neurological: Other (+confusion; nonverbal) Lymphatics: No axilla or inguinal lymphadenopathy Urinary: Other (No bladder distention) External genitalia: Deferred Rectal: Deferred Conclusions/Impression: # Respiratory alkalosis + metabolic acidosis Repeat ABG today showed primary respiratory alkalosis with non-gap metabolic acidosis ABG pH 7.45, thus no need for bicarb therapy. However, if he develops further increasing work of breathing or respiratory fatigue, he will need a repeat ABG at that point as he will most likely be already in respiratory acidosis. Together with the metabolic acidosis, he will then need bicarb therapy at that point. Non-gap metabolic acidosis secondary to recent diarrhea # Failure to thrive w/ dysphagia # HypoK monitor/replete prn # HypoPO4 monitor/treat when necessary # HypoMg monitor/repeat when necessary # Acute diarrhea Stool studies sent # Acute encephalopathy +CVA Further evaluation/management per other services # COVID infection Per other services # Hypertension; history of CAD Troponin elevated Monitor
[2020-12-02] MEDS ORDERED: LORazepam 2 MG/ML VIAL IV ONE (11:11)
[2020-12-02] MEDS ORDERED: LORazepam 2 MG/ML VIAL ONE (11:35)
[2020-12-02] MEDS ORDERED: JEVITY 1.5 CAL LIQUID 1,000 ML BOT RTH SCH (12:00)
--- NOTE | 2020-12-02 12:04 | RAD REPORT ---
EXAM DESCRIPTION: MRI - Brain Wo Cont - 12/02/2020 11:38 am CLINICAL HISTORY: r/o new/worsening CVA, drooling, mute Headache, drowsiness, history of CVA COMPARISON: Head Brain Wo Cont dated 12/01/2020 TECHNIQUE: Multi-sequence, multiplanar MR imaging of the brain was performed without contrast. FINDINGS: No intracranial hemorrhage, hydrocephalus or extra-axial fluid collections. No edema or sh ift of midline structures. No findings to suspect brain mass. 32 x 9 mm oblong area of infarction aga in noted left basal ganglia. There is no new areas of CVA visualized. Midline structures are normally formed. Multifocal fluid is seen in the paranasal sinuses particularly the sphenoid sinuses and right maxilla ry antrum. IMPRESSION: No new area of acute infarction is detected. No hemorrhage or midline shift seen.
[2020-12-02 12:12] LABS: Arterial Blood Carboxyhemoglob 0.5 % (0-1.5); Blood Gas Oxyhemoglobin 95.3 % (94-97)
[2020-12-02 12:46] LABS: Urine Appearance CLEAR (Clear); Urine Bilirubin NEGATIVE (Negative); Urine Blood TRACE (Negative); Urine Color YELLOW (Yellow); Urine Glucose NEGATIVE (Negative); Urine Protein TRACE (Negative); Urine Specific Gravity 1.015 (1.005-1.030)
[2020-12-02 12:49] LABS: Urine Microscopic Reflex ORDER UMIC
[2020-12-02 13:01] LABS: Urine Bacteria <20 /HPF (NONE SEEN); Urine RBC <5 /HPF (NONE SEEN)
[2020-12-02] MEDS: Ringers Lactate 1,000 ML IV SCH ×2 (13:28→23:00)
[2020-12-02] MEDS: OXcarbazepine 150 MG TAB PO SCH (20:35)
[2020-12-02] MEDS: ATORVASTATIN 20 MG TAB PO SCH (20:35)
[2020-12-02] MEDS: ACETAMINOPHEN 500 MG TAB PO PRN (20:36)
--- NOTE | 2020-12-02 20:41 | PN ---
Subjective: Mr. Martinez is resting in ICU bed. He does answer to his name with eye opening and tur ns towards the direction of voice, but did not follow any commands to move his hands or feet. Jose Miguel pandya, the hospitalist, Dr. Gunter mentioned that earlier today, the patient did follow commands to squeez e hands bilaterally. He is not awake enough to do physical therapy per the physical therapist. Objective: Vital Signs: Blood pressure 159/71, pulse of up to 96, respiratory rate 20 to 22, temper ature 99.4. Saturation is 98%. General: Mr. Martinez is resting in bed. As noted, he does open eyes and turn towards voice, but di d not follow my instructions. Does have equal tone in the upper and lower extremities. He does, how ever, have some difficulty in appearing to hold the right side more stiffly than the left. This is u pper and lower extremity. Laboratory Studies: Complete blood count with differential shows white blood cell count of 9.0, hemo globin 12.1. Arterial blood gas shows pH 7.45, PO2 91, pCO2 18. His chemistries show carbon dioxide down to 14, calcium 8.1, magnesium 1.7. C-reactive protein 28.6, procalcitonin negative at less marilou n 0.05. urinalysis shows 2+ ketones and trace of blood. Repeat brain MRI identified the left basal ganglia stroke measuring 32 x 9 mm. The stroke is evolving. There are no new areas of st roke. His neck magnetic resonance angiogram identified severe plaque in the left internal carotid ar brandon up to about 80%. The brain magnetic resonance angiogram showed no acute blockages. His echocar diogram showed ejection fraction of 49% with no effusion and mild global hypokinesis. Carotid artery ultrasound study showed greater than left ICA stenosis. The patient did have right carot id endarterectomy previously. Assessment: Mr. 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 He also has a left basal ganglia stroke which causes superimposed difficulty wit h his movement, coordination and difficulty in expressing himself. He is now more than a week in [facility] and has been nonambulatory and is significantly debilitated. 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 Several attemp ts were made to have the patient transferred to [place] for intervention in the anterior circulation, which may help his perfuses posterior part of the brain that does have the stroke and is at risk for further ischemia. He is accepted to [facility], but there are no beds. Plan: 1.The patient will require long-term care. At this point will require either stenting or endarterec [place] of the left internal carotid artery. 2.He should have permissive hypertension, not lower blood pressure greater than 140. 3.Aggressive management of his respiratory status given his COVID condition and likely encephalopath y related to COVID. 4.Other comorbid conditions should be addressed aggressively. 5.This was discussed with the patient's daughter and hospitalist. YOSSI Voice ID: [id number] Report ID: [id number]
[2020-12-02] MEDS ORDERED: MAGNESIUM SULFATE 1 gm IVPB 1 GM/100 ML BAG IV ONE (21:00)
[2020-12-02] MEDS ORDERED: POTASSIUM 25 MEQ EFFERV TAB PO ONE (21:00)
[2020-12-03 05:23] LABS: BUN Blood Urea Nitrogen 15 mg/dL (7-18); Bicarbonate 23 mmol/L (21-32); Ferritin 482.8 ng/mL (26-388); Glucose Level 112 mg/dL (74-106); Magnesium 1.7 mg/dL (1.8-2.4); Sodium Level 138 mmol/L (136-145)
--- NOTE | 2020-12-03 05:57 | P.PN ---
Subjective Date of Service: 12/03/20 Chief Complaint: AMS Subjective: No new changes Physical Examination - Vital Signs Temperature: 96.9 F Blood Pressure: 158/58 Pulse: 89 Respirations: 22 Pulse Ox (%): 97 - Physical Exam General: Other (appears as his stated age) HEENT: Atraumatic, Normocephalic Neck: Supple, JVD not distended Respiratory: Diminished Cardiovascular: No rubs, No murmurs Gastrointestinal: Soft and benign Integumentary: No warmth Neurological: Abnormal speech Urinary: Other (no bladder distention) External genitalia: Deferred Rectal: Deferred Assessment And Plan - Plan # Respiratory alkalosis + metabolic acidosis ABG still w/ primary respiratory alkalosis No need for bicarb therapy. However, if he develops further increasing work of breathing or respiratory fatigue, he will need a repeat ABG at that point as he will most likely be already in respiratory acidosis. Together with the metabolic acidosis, he will then need bicarb therapy at that point. Non-gap metabolic acidosis secondary to recent diarrhea # Failure to thrive w/ dysphagia Mngt per primary team # HypoK Monitor/replete prn # HypoPO4 Monitor/replete prn # HypoMg Monitor/replete prn # Acute diarrhea Stool studies sent # Acute encephalopathy +CVA Further evaluation/management per other services # COVID infection Per other services # Hypertension; history of CAD Troponin elevated Monitor Physician Review Additional Text: Physical Exam General: Confused, nonverbal, follows basic commands intermittently HEENT: Mucous membr. moist/pink Respiratory: Nonlabored breathing, intermittent tachypnea: 30s Cardiovascular: sinus tachycardia 100-110, Normal S1 S2, no edema Gastrointestinal: Soft and benign, Non-distended, No tenderness Musculoskeletal: No swelling Integumentary: No rashes Neurological: minimally moves all 4 extremities, squeezes hands b/l, moves b/l toes. Assessment And Plan Acute Encephalopathy Acute CVA Elevated troponin, history of CAD Hypomagnesemia COVID+ GERD HTN -AMS initially with some improvement, now worsened since 12/01 -Nursing staff report clinical change since yesterday -Patient is not responding verbally, seems to nod yes/no, and seemed to understand some questions yesterday -Patient seems to understand some questions today, not following more than some very basic commands -unable to obtain accurate physical exam, but does appear more weak on the right side compared to left -Add on LFTs, procalcitonin, CRP/ferritin to labs at this morning -Acidosis appears to be worsening. mixed vs respiratory. pt has been tachypneic -ABG ordered, nephrology consulted -will obtain MRI - r/o new/evolving CVA -Dr. Vance following. 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 -Case discussed with neurology-Dr. Vance who recommended neuro intervention. Neuro blanket folder Dr. Lamar at [facility] who noted left internal carotid stenosis is an incidental finding and not likely related to the acute CVA in the brainstem. He recommended neuro intervention within 6-8 weeks. -Daughter requested for patient to be transferred to [facility] for he had carotid endarterectomy done on the right given his intermittent AMS. -his physician reportedly accepted patient pending bed availability in hospital in [facility], however all hospitals were at capacity when last checked yesterday -continue ASA, plavix -Echocardiogram shows global hypokinesis in with EF of 49%. No thrombus. -Elevated troponin likely secondary to demand ischemia. Troponin trended flat. -Patient noted to be generally weak needing total assistance, slightly worse on R
[2020-12-03 05:59] LABS: Potassium 2.9 mmol/L (3.5-5.1)
[2020-12-03 06:20] LABS: Arterial Blood Carboxyhemoglob 0.9 % (0-1.5); Blood O2 Saturation 80.7 % (92-98.5)
[2020-12-03] MEDS ORDERED: MAGNESIUM SULFATE 1 gm IVPB 1 GM/100 ML BAG IV ONE ×2 (06:21→20:02)
[2020-12-03 06:22] LABS: Absolute Lymphocytes (CBC) 0.8 K/uL (0.7-4.9); Basophils % 0.2 % (0-1.3); Hematocrit 30.7 % (39.6-49.0); Lymphocytes % 10.6 % (15.3-44.8); MPV 7.9 fL (7.6-11.3); RBC Red Blood Cell Count 3.23 M/uL (4.33-5.43)
[2020-12-03] MEDS: Ringers Lactate 1,000 ML IV SCH ×2 (07:00→09:00)
[2020-12-03] MEDS: KCL 20 MEQ/100 mL IVPB 20 MEQ/100 ML BAG IV SCH ×2 (07:44→10:08)
[2020-12-03] MEDS: FOLIC ACID 1 MG TABLET PO SCH (07:45)
[2020-12-03] MEDS: METOPROLOL TAR 50 MG TAB PO SCH ×2 (07:45→20:37)
[2020-12-03] MEDS: ASPIRIN 81 MG CHEWABLE TABLET PO SCH (07:45)
[2020-12-03] MEDS: CLOPIDOGREL 75 MG TABLET PO SCH (07:45)
--- NOTE | 2020-12-03 07:59 | P.CNS ---
Date of Consult: 12/02/20 (TV, Relative consented to TV) Reason for Consult: Resp alkalosis Chief Complaint: AMS History of Present Illness: PT Aw AMS- Baseline functioning good/ Nowunresponsive/ Resp piratory alkalosis. pos for COVID/ NE of resp failure/Hx of old stroke Allergies codeine [Codeine] Allergy (Verified 09/28/20 21:54) Nausea/Vomiting Home Medications: Gabapentin 300 mg PO QID 03/26/12 Oxcarbazepine 600 mg PO TID 03/26/12 Tramadol HCl [Tramadol HCl ER] 300 mg PO DAILY 03/26/12 Hydrocodone Bit/Acetaminophen [Hydrocodon-Acetaminophen 5-325] 1 each PO Q6HP PRN #40 tablet 06/04/12 Meclizine HCl [Motion Relief] 25 mg PO QID 01/13/15 Metoprolol Tartrate [Lopressor*] 50 mg PO DAILY 02/14/19 Pantoprazole [Protonix Tab*] 40 mg PO DAILY 02/14/19 - Past Medical/Surgical History Diabetic: No -: GERD, HTN, KIDNEY STONES, [place], CAD -: PROSTATE, LITHOTRIPSY, ENDARTERECTOMY RIGHT CAROTID, MULTIPLE STENTS Psychosocial/ Personal History: Patient lives at home with family - Family History Mother Medical History: Cancer Brother Medical History: Cancer Sister Medical History: Cancer - Social History Smoking Status: Current every day smoker Alcohol use: No CD- Drugs: No Caffeine use: Yes Place of Residence: Home Review of Systems is unable to be obtained Physical Examination Temp Pulse Resp BP Pulse Ox 96.9 F 100 H 23 H 135/86 96 12/03/20 05:57 12/03/20 07:45 12/03/20 06:00 12/03/20 07:45 12/03/20 06:00 - Problems (1) Respiratory alkalosis Current Visit: Yes Status: Acute Plan: Noclinical evidence of sepis, Hyperchloremic alkalosis/NE loss of bicarbonate/ ABG preogressive resp alkalosis/ ILD on CXRY Old basal ganglia infarction/ Agree with chage to lactate ringers/ Carotid stenosis/ poss hyperchloremic alkalosis
--- NOTE | 2020-12-03 10:12 | RAD REPORT ---
EXAM DESCRIPTION: Fidencio Single View12/03/2020 10:00 am CLINICAL HISTORY: Cough COMPARISON: November FINDINGS: The lungs appear clear of acute infiltrate. The heart is normal size. A feeding tube is coiled within the gastric fundus. The tip lies approximately 3 centimeters from the GE junction IMPRESSION: No acute abnormalities displayed
--- NOTE | 2020-12-03 10:50 | P.PN ---
Subjective Date of Service: 12/03/20 Chief Complaint: AMS Subjective: Improving (more awake/alert this morning. responds briefly mumbling to some questions - stated name and that we were in [place]. nursing reports cough developed overnight seems weak and unable to have strong cough) Review of Systems 10-point ROS is otherwise unremarkable Physical Examination - Vital Signs Temperature: 98.0 F Blood Pressure: 133/61 Pulse: 89 Respirations: 32 Pulse Ox (%): 95 Assessment & Plan Physician Review Additional Text: Physical Exam General: minimal response, seems to be oriented x2, mumbling, weak HEENT: NGT in place Respiratory: Nonlabored breathing, tachypnea Cardiovascular: sinus tachycardia 100-110, Normal S1 S2, no edema Gastrointestinal: Soft and benign, Non-distended, No tenderness Musculoskeletal: No swelling Integumentary: No rashes Neurological: minimally moves all 4 extremities, squeezes hands b/l, moves b/l toes. Assessment And Plan Acute Encephalopathy vs Encephalitis - possibly due to COVID vs CVA Acute CVA COVID-19+ Resp alkalosis with Metabolic acidosis Elevated troponin, history of CAD Hypomagnesemia GERD HTN -AMS initially with some improvement, worsened on 12/01, and slight improvement again -minimal verbal response, more alert/oriented -IVF changed to LR, nephrology consulted, bicarb improving -ABG improved -pulm consulted due to respiratory alkalosis, COVID+, tachypnea -repeat MRI (12/02) with no new findings -Dr. Vance following. 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 -Case discussed with neurology-Dr. Vance who recommended neuro intervention. Neuro staffing manager Dr. Lamar at [facility] who noted left internal carotid stenosis is an incidental finding and not likely related to the acute CVA in the brainstem. He recommended neuro intervention within 6-8 weeks. -Daughter requested for patient to be transferred to [facility] for he had carotid endarterectomy done on the right given his intermittent AMS. -his physician reportedly accepted patient pending bed availability in hospital in [place], however all hospitals were at capacity -continue ASA, plavix -Echocardiogram shows global hypokinesis in with EF of 49%. No thrombus. -Elevated troponin likely secondary to demand ischemia. Troponin trended flat. -discussed further with daughter on 12/02, and made DNR -after further discussion today, daughter states she will discuss further with her sisters and may be leaning towards hospice route, as her father wouldn't want to continue living like this, with this type of quality of life -states at this time would not pursue a PEG tube SW/CM consulted for hospice Time Spent Managing Pts Care (In Minutes): 40
[2020-12-03] MEDS: ACETAMINOPHEN 500 MG TAB PO PRN ×2 (12:26→20:48)
[2020-12-03] MEDS ORDERED: VANCOMYCIN 1.5 GM in NA CHLORIDE 0.9% 500 ML IVPB ONE (15:00)
[2020-12-03] MEDS: VANCOMYCIN 1 GM in NA CHLORIDE 0.9% 250 ML IVPB SCH ×2 (15:24→20:44)
[2020-12-03] MEDS ORDERED: KCL 20 MEQ/100 mL IVPB 20 MEQ/100 ML BAG IV SCH (16:00)
[2020-12-03] MEDS: Meropenem 1 GM/100 ML BAG IV SCH (17:13)
[2020-12-03 19:37] LABS: BUN Blood Urea Nitrogen 15 mg/dL (7-18); Bicarbonate 22 mmol/L (21-32); Glucose Level 115 mg/dL (74-106); Magnesium 1.7 mg/dL (1.8-2.4); Potassium 3.5 mmol/L (3.5-5.1); Sodium Level 136 mmol/L (136-145)
[2020-12-03] MEDS ORDERED: POTASSIUM PHOS IN 0.9 % NACL 15 MMOL/250 ML BAG IV ONE (20:02)
[2020-12-03] MEDS: ATORVASTATIN 20 MG TAB PO SCH (20:40)
[2020-12-03] MEDS: OXcarbazepine 150 MG TAB PO SCH (20:40)
[2020-12-04] MEDS: ACETAMINOPHEN 500 MG TAB PO PRN (01:09)
[2020-12-04] MEDS: Ringers Lactate 1,000 ML IV SCH (01:09)
[2020-12-04] MEDS: Meropenem 1 GM/100 ML BAG IV SCH ×2 (01:09→08:54)
[2020-12-04 04:35] LABS: ALT/SGPT 14 U/L (12-78); AST/SGOT 53 U/L (15-37); Albumin 2.2 g/dL (3.4-5.0); Alkaline Phosphatase 63 U/L (45-117); BUN Blood Urea Nitrogen 12 mg/dL (7-18); Bicarbonate 22 mmol/L (21-32); Bilirubin Total 0.4 mg/dL (0.2-1.0); Ferritin 483.7 ng/mL (26-388); Glucose Level 102 mg/dL (74-106); Magnesium 1.7 mg/dL (1.8-2.4); Phosphorus 3.9 mg/dL (2.5-4.9); Potassium 3.8 mmol/L (3.5-5.1); Protein, Total 5.7 g/dL (6.4-8.2); Sodium Level 136 mmol/L (136-145)
[2020-12-04 04:40] LABS: Absolute Lymphocytes (CBC) 0.7 K/uL (0.7-4.9); Basophils % 0.1 % (0-1.3); Hematocrit 31.1 % (39.6-49.0); Lymphocytes % 7.5 % (15.3-44.8); RBC Red Blood Cell Count 3.25 M/uL (4.33-5.43)
--- NOTE | 2020-12-04 05:37 | P.PN ---
Subjective Date of Service: 12/04/20 Chief Complaint: AMS Physical Examination - Vital Signs Temperature: 97.7 F Blood Pressure: 150/86 Pulse: 102 Respirations: 43 Pulse Ox (%): 97 Assessment And Plan - Plan # Respiratory alkalosis + metabolic acidosis ABG still w/ primary respiratory alkalosis No need for bicarb therapy. However, if he develops further increasing work of breathing or respiratory fatigue, he will need a repeat ABG at that point as he will most likely be already in respiratory acidosis. Together with the metabolic acidosis, he will then need bicarb therapy at that point. Non-gap metabolic acidosis secondary to recent diarrhea # Failure to thrive w/ dysphagia Mngt per primary team # HypoK Monitor/replete prn # HypoPO4 Monitor/replete prn # HypoMg Monitor/replete prn # Acute diarrhea Stool studies sent # Acute encephalopathy +CVA Further evaluation/management per other services # COVID infection Per other services # Hypertension; history of CAD Troponin elevated Monitor Physician Review Additional Text: Physical Exam General: Confused, nonverbal, follows basic commands intermittently HEENT: Mucous membr. moist/pink Respiratory: Nonlabored breathing, intermittent tachypnea: 30s Cardiovascular: sinus tachycardia 100-110, Normal S1 S2, no edema Gastrointestinal: Soft and benign, Non-distended, No tenderness Musculoskeletal: No swelling Integumentary: No rashes Neurological: minimally moves all 4 extremities, squeezes hands b/l, moves b/l toes. Assessment And Plan Acute Encephalopathy Acute CVA Elevated troponin, history of CAD Hypomagnesemia COVID+ GERD HTN -AMS initially with some improvement, now worsened since 12/01 -Nursing staff report clinical change since yesterday -Patient is not responding verbally, seems to nod yes/no, and seemed to understand some questions yesterday -Patient seems to understand some questions today, not following more than some very basic commands -unable to obtain accurate physical exam, but does appear more weak on the right side compared to left -Add on LFTs, procalcitonin, CRP/ferritin to labs at this morning -Acidosis appears to be worsening. mixed vs respiratory. pt has been tachypneic -ABG ordered, nephrology consulted -will obtain MRI - r/o new/evolving CVA -Dr. Vance following. 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 -Case discussed with neurology-Dr. Vance who recommended neuro intervention. Neuro railway track plant operator Dr. Lamar at [facility] who noted left internal carotid stenosis is an incidental finding and not likely related to the acute CVA in the brainstem. He recommended neuro intervention within 6-8 weeks. -Daughter requested for patient to be transferred to [facility] for he had carotid endarterectomy done on the right given his intermittent AMS. -his physician reportedly accepted patient pending bed availability in hospital in [facility], however all hospitals were at capacity when last checked yesterday -continue ASA, plavix -Echocardiogram shows global hypokinesis in with EF of 49%. No thrombus. -Elevated troponin likely secondary to demand ischemia. Troponin trended flat. -Patient noted to be generally weak needing total assistance, slightly worse on R
[2020-12-04 05:57] VITALS: BMI 21.2
[2020-12-04] MEDS ORDERED: MAGNESIUM SULFATE 1 gm IVPB 1 GM/100 ML BAG IV ONE (06:00)
[2020-12-04 06:24] LABS: Arterial Blood Carboxyhemoglob 0.7 % (0-1.5); Blood Gas Oxyhemoglobin 94.3 % (94-97)
[2020-12-04] MEDS ORDERED: POTASSIUM 25 MEQ EFFERV TAB FT ONE (08:00)
[2020-12-04] MEDS: ASPIRIN 81 MG CHEWABLE TABLET PO SCH (08:53)
[2020-12-04] MEDS: METOPROLOL TAR 50 MG TAB PO SCH (08:53)
[2020-12-04] MEDS: CLOPIDOGREL 75 MG TABLET PO SCH (08:53)
[2020-12-04] MEDS: FOLIC ACID 1 MG TABLET PO SCH (08:53)
[2020-12-04] MEDS: VANCOMYCIN 1 GM in NA CHLORIDE 0.9% 250 ML IVPB SCH (08:54)
[2020-12-04 09:33] VITALS: BP 157/71
[2020-12-04 11:35] VITALS: O2SAT 98
[2020-12-04 13:53] VITALS: TEMP 99.2
--- NOTE | 2020-12-04 21:06 | P.DS ---
Admission Date: 11/25/20 Discharge Date: 12/04/20 Disposition: HOSPICE-MEDICAL FACILITY Reason for Admission: CVA Consultations: Nephrology - Dr. Francisco Pulmonology - Dr. Scott Neurology - Dr. Vance Procedures: Problem List Acute Encephalopathy vs Encephalitis - possibly due to COVID vs CVA Acute CVA - basal ganglia with weakness, decreased cognition, aphasia, and difficulty swallowing COVID-19+ Resp alkalosis with Metabolic acidosis NSTEMI secondary to demand ischemia, history of CAD Hypomagnesemia GERD HTN Brief History of Present Illness: 70 yo M with CAD, HTN, and GERD here today for complaints of right foot pain. Per daughter, he fell on Tuesday and went to [facility]. They told him they wanted to transfer him for evaluation of his heart but he left AMA. His daughter also reports that he has had mental status changes for the past few months. CT head shows area of infarction in deep left frontal lobe white matter near head of caudate is favored to be remote, favoring an old infarction. Xray of the foot is within normal limits. Trop 0.14, BNP 1103. Plt 106. Mg 1.5. Incidentally found to be COVID positive. Hospital Course: MRI: 3cm acute infarction of left basal ganglia. 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 Reviewed with Dr. Vance who recommended transfer to tertiary care center for potential neuro-intervention to maximize blood flow. Dr. Lamar at [facility] was contacted and stated the L internal carotid stenosis is an incidental finding as it doesn't supply area of the basal ganglia, recommended neuro-intervention in 6-8 weeks. Patient's prior surgeon for other carotid stenosis was contacted by family and accepted patient, however there was no bed availability. Patient subsequently had worsening of his cognition, inconsistent and difficult to follow commands, minimally able to mumble some words, unable to swallow safely, weak cough, and minimal ability to move extremities. Repeat MRI was negative for acute findings. A dobhoff was placed and tube feeds were initiated. Infectious workup only revealed blood culture with CONS which was likely contaminant. He did not have any skin lesions/rashes or other focal findings of infection. Multiple long discussions were had with the patient's daughter, Karey, the POA. After further discussion with the other daughters, they ultimately decided to pursue hospice care and requested discontinuation of antibiotics and dobhoff. They stated their father would not want to continue to live like this, he had adamantly stated he would not want this level of support and low quality of life. He would not want a PEG tube, would not want to go to a halfway / SNF. Patient was discharged to inpatient hospice on 12/04. Vital Signs/Physical Exam: Physical Exam General: minimal response, seems to be oriented x1, mumbling, weak HEENT: NGT in place Respiratory: Nonlabored breathing, tachypnea Cardiovascular: Normal S1 S2, no edema Gastrointestinal: Soft and benign, Non-distended, No tenderness Musculoskeletal: No swelling Integumentary: No rashes Neurological: minimally moves all 4 extremities, squeezes hands b/l, moves b/l toes. Temp Pulse Resp BP Pulse Ox 99.2 F 106 H 35 H 157/71 H 98 12/04/20 12:00 12/04/20 09:00 12/04/20 09:00 12/04/20 09:00 12/04/20 09:00 Laboratory Data at Discharge: WBC 9.80 K/uL (4.3-10.9) D 12/04/20 03:30 Hgb 10.8 g/dL (13.6-17.9) L 12/04/20 03:30 Hct 31.1 % (39.6-49.0) L 12/04/20 03:30 Plt Count 224 K/uL (152-406) 12/04/20 03:30 PT 12.3 SECONDS (9.5-12.5) 11/24/20 23:15 INR 1.07 11/24/20 23:15 Sodium 136 mmol/L (136-145) 12/04/20 03:30 Potassium 3.8 mmol/L (3.5-5.1) 12/04/20 03:30 BUN 12 mg/dL (7-18) 12/04/20 03:30 Creatinine 0.68 mg/dL (0.55-1.3) 12/04/20 03:30 Glucose 102 mg/dL (74-106) 12/04/20 03:30 Phosphorus 3.9 mg/dL (2.5-4.9) D 12/04/20 03:30 Magnesium 1.7 mg/dL (1.8-2.4) L 12/04/20 03:30 Total Bilirubin 0.4 mg/dL (0.2-1.0) 12/04/20 03:30 AST 53 U/L (15-37) H 12/04/20 03:30 ALT 14 U/L (12-78) 12/04/20 03:30 Alkaline Phosphatase 63 U/L (45-117) 12/04/20 03:30 Troponin I 0.11 ng/mL (0.0-0.045) H 11/25/20 05:26 Triglycerides 96 mg/dL (<150) 11/25/20 05:26 Cholesterol 163 mg/dL (<200) 11/25/20 05:26 HDL Cholesterol 37 mg/dL (40-60) L 11/25/20 05:26 Cholesterol/HDL Ratio 4.41 11/25/20 05:26 Home Medications: Gabapentin 300 mg PO QID 03/26/12 Oxcarbazepine 600 mg PO TID 03/26/12 Tramadol HCl [Tramadol HCl ER] 300 mg PO DAILY 03/26/12 Hydrocodone Bit/Acetaminophen [Hydrocodon-Acetaminophen 5-325] 1 each PO Q6HP PRN #40 tablet 06/04/12 Meclizine HCl [Motion Relief] 25 mg PO QID 01/13/15 Metoprolol Tartrate [Lopressor*] 50 mg PO DAILY 02/14/19 Pantoprazole [Protonix Tab*] 40 mg PO DAILY 02/14/19 Followup: NONE,NONE [Primary Care Provider] - Time spent managing pt's care (in minutes): 45
== END 2020-12-04 14:25 | disposition hospice, inpatient (51) | DRG 64 ==
LOC: ER 13:13 → ERHOLD 20:27 → 3RD-ICU 11-25 02:34 → OBSVTOIN 11-25 14:42
PROVIDERS: ADMIT Internal Medicine; ATTEND Internal Medicine
DX: I63.9 Cerebral infarction, unspecified (principal); U07.1 COVID-19; G81.91 Hemiplegia, unspecified affecting right dominant side; E87.3 Alkalosis; E87.2 Acidosis; G93.40 Encephalopathy, unspecified; I24.8 Other forms of acute ischemic heart disease; I25.10 Atherosclerotic heart disease of native coronary artery without angina pectoris; I65.22 Occlusion and stenosis of left carotid artery; I10 Essential (primary) hypertension; D69.6 Thrombocytopenia, unspecified; G50.0 Trigeminal neuralgia; E83.42 Hypomagnesemia; R62.7 Adult failure to thrive; Z68.21 Body mass index [BMI] 21.0-21.9, adult; E87.6 Hypokalemia; R19.7 Diarrhea, unspecified; R41.89 Other symptoms and signs involving cognitive functions and awareness; R47.01 Aphasia; K21.9 Gastro-esophageal reflux disease without esophagitis
CPT/HCPCS: 36415; 70450; 70544; 70547; 70549; 70551; 70553; 71045; 74018; 80048; 80053; 80061; 80076; 81003; 81015; 82728; 82805; 82947; 83605; 83735; 83880; 84100; 84132; 84145; 84439; 84443; 84484; 85025; 85610; 86140; 87040; 87070; 87077; 87186; 87205; 87324; 87449; 92610; 93005; 93306; 93880; 94760; 96365; 96366; 97112; 97162; 97530; 99285; A9577; G0378; J0360; J2185; J3370; J3475; J3480; J7030; J7040; J7050; J7120; U0003

== ENCOUNTER 2020-12-04 16:48 | Inpatient (IN) | payer OTHER ==
--- OUTSIDE RECORDS SUMMARY | 2020-12-04 16:53 | XMS REPORT | Continuity of Care Document ---
:1950 Demographics Address [address] [place] [address] Work Phone Mobile Phone Email Address Preferred Language Iranian Marital Status Unknown Congregation Affiliation Unknown Race Unknown Additional Race(s) Unavailable White Ethnic Group Unknown Author Organization [facility] t Address [address] [place] [address] [place] [address] Care Team Providers Name Role Phone Brian WOOTEN, Lolis Moran Primary Care Physician DR BRIAN Attending Clinician Unavailable DR BRIAN Admitting Clinician Unavailable Payers Payer Name Policy Type Policy Effective Date Expiration Date Sour ce Number [facility] [id number] [facility] - MEDICARE MGD 00:00:00 [facility] [id number]/05/17 019-Present Problems Condition Condition Condition Status Onset Resolution Last Treating Co mments Source Name Details Category Date Date Treatment Clinician Date Unstable Unstable Disease Active [place] ang[place] angina 2-13 Methodi 00:00: st 00 Left-sided Left-sided Disease Active 2017-05 [place] chest pain chest pain 05-23 Md thodi 00:00: st 00 NSTEMI NSTEMI Disease Active 2017-05 [place] (non-ST (non-ST 1-07 Methodi elevated elevated 00:00: st myocardial myocardial 00 infarction infarction ) ) PSVT PSVT Disease Active 2017-05 [place] (paroxysma (paroxysma 05-21 Me thodi l l 00:00: st supraventr supraventr 00 icular icular tachycardi tachycardi a) a) Acute on Acute on Disease Active [place] chronic chronic 02-11 Methodi congestive congestive 00:00: st heart heart 00 failure failure CHEST PAIN Diagnosis Active 2011-02-24 Memoria 01-24 10:02:00 l CHEST 12:00: [place] PAIN 00 Active 01/24/2011 [place] LOWER BACK Diagnosis Active 2011-01-20 Memoria PAIN 01-20 19:58:00 l LOWER 00:00: [place] BACK PAIN 00 Active 01/20/[address] [facility] KIDNEY Diagnosis Active 2011-01-20 Mem oria STONES 6-16 19:58:00 l KIDNEY 06:00: Rolo STONES 00 Active 10/29/[address] [facility] LIFEFLIGHT Diagnosis Active 2011-04-01 Memoria 09-23 10:45:00 l 21:11: R[place] LIFEFLIGHT 00 Active 09/23/[address] [facility] HEADACHE Diagnosis Active 2011-01-20 M emoria 5- 19:58:00 l HEADACHE 00:00: Bernard n 00 Active 09/23/[address] [facility] Kidney Problem Active 2011-01-26 Memor ia stone 08:29:47 l Kidney [place] stone Active Problem 01/26/2011 [facility] Nephrostom Problem Active 2011-01-26 M emoria y tube 08:29:47 l Rolo Nephrostom y tube Active Problem 01/26/2011 [facility] Pain Problem Active 2011-01-26 Memor ia 08:29:47 l Pain [place] Active Problem 01/26/2011 [facility] CALCULUS Diagnosis Active 2011-01-20 M emoria OF KIDNEY 19:58:00 l CALCULUS Bernard n OF KIDNEY Active [facility] KIDNEY Diagnosis Active 2011-01-20 Mem oria ANOMALY 19:58:00 l NEC KIDNEY [place] ANOMALY NEC Active [facility] Pain in Pain in Diagnosis [facility] right hip [facility] Nondisplac Nondisplac Diagnosis Active [facility] ed ed [facility] - intertroch intertroch Me moria anteric anteric l fracture fracture Outpat i of right of right ent femur, femur, Clinics subsequent subsequent encounter encounter for closed for closed fracture fracture with with routine routine healing healing Acid Acid Disease Active [place] reflux reflux Methodi st Wears Wears Disease Active [place] glasses glasses Methodi st Full Full Disease Active [place] dentures dentures Method i st [facility] History of History of Disease Active [place] heart heart Methodi attack attack st TIA TIA Disease Active [place] (transient (transient Me thodi ischemic ischemic st attack) attack) Allergies, Adverse Reactions, Alerts Allergy Allergy Status Severity Reaction(s) Onset Inactive Treating Comm ents Source Name Type Date Date Clinician Codeine Propensi Active Rash 2007-0 Other [place] ty to 7-10 reaction( Methodi adverse 00:00: s): st reaction 00 Nausea s to and/or drug Vomiting CODEINE CODEINE Active Memoria l [place] penicill penicill Active Memori a ins ins l [place] codeine Adverse Active Info Not [facility] Reaction Available [facility] Family History Family Member Diagnosis Comments Start Date Stop Date Source Natural sister Uterine cancer [place] [facility] Natural sister Heart attack [place] [facility] Natural sister Liver cancer [place] [facility] Natural brother Lung cancer [place] [facility] Natural brother Heart attack [place] [facility] Natural father Leukemia [place] Me thodist Natural mother Uterine cancer [place] Social History Social Habit Start Date Stop Date Quantity Comments Source History of tobacco Cigarette Smoker [place] use Faith History [facility] Alcohol Std Drinks Method ist History [facility] Alcohol Binge Faith Cigarettes smoked 2018-07-03 2018-07-03 [place] current (pack per 00:00:00 00:00:[address] day) - Reported Cigarette 2018-07-03 2018-07-03 [place] pack-years 00:00:00 00:00:00 [facility] Tobacco use and 2018-07-03 2018-07-03 Current user [place] exposure 00:00:00 00:00:00 [facility] Alcohol intake 2018-07-03 2018-07-03 Current [place] 00:00:00 00:00:00 non-drinker of Faith alcohol (finding) History [facility] 2018-06-28 2018-06-28 1 Gil Alcohol Frequency 00:00:00 00:00:[address] Tobacco Comment 2018-06-28 2018-06-28 2 cigarettes per Nina ston 00:00:00 00:00:00 day Faith Sex [birth year] [place] 00:00:00 00:00:00 [facility] Smoking Status Start Date Stop Date Source Current every day smoker 2018-07-03 00:00:00 Nina Wahl Medications Ordered Filled Start Stop Current Ordering Indication Dosage Frequency Signature Comments Components Source Medication Medication Date Date Medication? Clinician (SIG) Name Name gabapentin Yes 300mg Q.[id number] Take 300 Gil (NEURONTIN) 2-18 [id number] mg by Adán moore 300 mg 12:27: 3D mouth 3 st capsule 18 (three) times a day. OXcarbazepi Yes 600mg Q.[id number] Take 600 Gil ne 2-18 [id number] mg by Raza (TRILEPTAL) 12:27: 3D mouth 3 st 600 MG 18 (three) tablet times a day. HYDROcodone Yes 1{tbl} Q6H Take 1 [place] -acetaminop 2-18 tablet by Met apple godinez (NORCO) 12:27: mouth st 10-325 mg 18 every 6 per tablet (six) hours. cholecalcif Yes 2000U QD Take 2,000 Gil irvin, 2-18 Units by Raza vitamin D3, 12:27: mouth st (VITAMIN 18 daily. D3) 2,000 unit capsule capsule Vicodin No Larry 2 tab, Me moria 5/500 oral 01-25 r J Cristian Route: PO, l tablet 00:10: Drug Form: Sonia nn 00 TAB, ONCE, Start date: 01/24/11 19:10:00, Stop date: 01/24/11 19:10:00 Flomax 0.4 Yes Larry 0.4 mg, 1 Memoria mg oral 01-24 r Chiquis Foster cap, PO, l capsule 23:21: Daily, 30 Sonia nn 19 cap, Substituti on Allowed, CAP [place] Yes Larry 1 tab, PO, Memoria 10/325 oral 01-24 r Chiquis Foster Q4-6H, l tablet 23:20: PRN, 24 [place] 58 tab, as needed for pain, Substituti on Allowed, Maintenanc e NS (Bolus) No Larry 1,000 mL, Memoria IV 1000 mL 01-24 r J Cristian Rate: l 21:03: 1,000 [place] 00 ml/hr, Infuse over: 1 hr, Route: IV, Total Volume: 1,000, Priority: STAT, Start date: 01/24/11 16:03:00, Duration: 1 doses or times, Stop date: 01/24/11 17:02:00, Bolus DoseBolus Dose Zofran No Larry 4 mg, 2 Me moria 01-24 r Chiquis Foster mL, Route: l 21:03: IVP, Drug Rolo 00 form: INJ, ONCE, Priority: STAT, Start date: 01/24/11 16:03:00, Stop date: 01/24/11 16:03:00 Dilaudid No Larry 1 mg, 0.5 Memoria 01-24 r Chiquis Foster mL, Route: l 21:03: IV, Drug [place] 00 form: INJ, ONCE, Priority: STAT, Start date: 01/24/11 16:03:00, Stop date: 01/24/11 16:03:00 Saline No Larry 5 ml, Bradley jose Flush 0.9% 01-24 mumtaz Foster Route: l 20:10: IVP, Drug [place] 00 Form: INJ, PRN, PRN Line Flush, [...] Home 01-24 on Allowed l Medication 19:48: Rolo 44 Vicodin Yes Substituti Bradley jose 5/500 [...] Bradley jose 01-21 Rubi Route: l 00:18: Ric IVP, Drug Rolo 00 form: INJ, ONCE, Priority: STAT, Start date: 01/20/11 19:18:00, Stop date: 01/20/11 19:18:00 Dilaudid No Ajita 2 mg, Memoria 01-20 Rubi Route: IV, l 22:55: Ric ONCE, Rolo Priority: STAT, Start date: 01/20/11 17:55:00, Stop date: 01/20/11 17:55:00 hydromorpho No Ajita 1 mg, Bradley jose ne 01-20 Rubi Route: l 22:54: Ric IVP, ONCE, Rolo 00 Priority: STAT, Start date: 01/20/11 17:54:00, Stop date: 01/20/11 17:54:00 morphine No Ajita 4 mg, 1 Memor ia Sulfate 01-20 Rubi mL, Route: l 21:44: Ric IVP, Drug [place] 00 form: INJ, ONCE, Priority: STAT, Start date: 01/20/11 16:44:00, Stop date: 01/20/11 16:44:00 Sodium No Ajita 500 mL, Memoria Chloride 01-20 Rubi Rate: 500 l 0.9% 21:44: Ric ml/hr, Rolo (Bolus) IV 00 Infuse 500 mL over: 1 hr, Route: IV, Total Volume: 500, Bolus Dose, Priority: STAT, Start date: 01/20/11 16:44:00, Duration: 1 doses or times, Stop date: 01/20/11 17:43:00 Brilinta Brilinta Yes Jesse not [facility] TraMADol TraMADol Yes Jesse not [facility] HCl ER HCl ER [facility] Metoprolol Metoprolol [...] Systolic (mm Hg) 2011-01-25 00:06:00 Bradley rial [place] Diastolic (mm Hg) 2011-01-25 00:06:00 Mem orial Rolo Peripheral Pulse Rate 2011-01-25 00:06:00 [facility] Oral (F) 2011-01-25 00:06:00 97.7 F [facility] Respitory Rate 2011-01-25 00:06:00 Memori al [place] Height 2011-01-24 19:40:00 175.26 cm Memorial Rolo Weight 2011-01-24 19:40:00 [facility] [place] Temperature Oral (F) 2011-01-24 19:40:00 97.4 F [facility] [place] Respitory Rate 2011-01-24 19:40:00 Memori al [place] Systolic (mm Hg) 2011-01-24 19:40:00 Bradley rial [place]olo Peripheral Pulse Rate 2011-01-24 19:40:00 [facility] [place] Diastolic (mm Hg) 2011-01-24 19:40:00 Mem orial Rolo Systolic (mm Hg) 2011-01-21 03:33:00 Bradley rial [place] Diastolic (mm Hg) 2011-01-21 03:33:00 Mem orial [place]olo Peripheral Pulse Rate 2011-01-21 03:33:00 Memorial Rolo Temperature Oral (F) 2011-01-21 03:33:00 97.4 F Memorial R[place] Respitory Rate 2011-01-21 03:33:00 Memori al [place] Systolic (mm Hg) 2011-01-21 00:57:00 Bradley rial Rolo Respitory Rate 2011-01-21 00:57:00 Memori al [place] Diastolic (mm Hg) 2011-01-21 00:57:00 Mem orial [place]olo Peripheral Pulse Rate 2011-01-21 00:57:00 Memorial Rolo Temperature Oral (F) 2011-01-20 22:07:00 98.0 F [facility] [place] Respitory Rate 2011-01-20 22:07:00 Memori al [place] Peripheral Pulse Rate 2011-01-20 22:07:00 [facility] [place] Diastolic (mm Hg) 2011-01-20 22:07:00 Mem orial Rolo Systolic (mm Hg) 2011-01-20 22:07:00 Bradley rial [place] Height 2011-01-20 17:27:00 175.26 cm [facility] [place] Weight 2011-01-20 17:27:00 [facility] Rolo Temperature Oral (F) 2011-01-20 17:27:00 97.0 F Memorial Rolo Procedures This patient has no known procedures. Plan of Care Planned Activity Planned Date Details Comments Source Future Scheduled 2020-12-14 INFLUENZA VACCINE [place] Test 00:00:00 [code = INFLUENZA VACCINE] Future Scheduled 2001 COLONOSCOPY SCREENING [place] [facility] Test 00:00:00 [code = COLONOSCOPY SCREENING] Future Scheduled 2001 SHINGLES VACCINES (#1) [place] [facility] Test 00:00:00 [code = SHINGLES VACCINES (#1)] Future Scheduled 1969 Hepatitis C screening [place] [facility] Test 00:00:00 (procedure) [code = 551127568] Future Scheduled 1963 COVID-19 VACCINE (1) Nina ston Faith Test 00:00:00 [code = COVID-19 VACCINE (1)] Future Scheduled 1957 65+ PNEUMOCOCCAL Gil Faith Test 00:00:00 VACCINE (1 of 2 - PPSV23) [code = 65+ PNEUMOCOCCAL VACCINE (1 of 2 - PPSV23)] Encounters Start End Encounter Admission Attending Care Care Encounter Source Date/Time Date/Time Type Type Clinicians Facility Department ID 2019-04-03 2019-04-03 [facility] [id number] 11:00[facility]00 11[facility]00[facility] Clin[facility] 2019-03-01 2019-03-01 [facility] [id number] 09:00[facility]00 09:00[facility]00 [facility] ent Clinics 2018-02-02 2018-02-02 Inpatient LOLIS [facility] [id number] [facility] 17:59:00 22:55:00 Medica l Center Results Test Description Test Time Test Comments Results Result Comments Source CHEMISTRY 2011-01-24 127.0 [facility] Sonia nn 20:11:00 CHEMISTRY 2011-01-24 63.0 [facility] Sonia nn 20:11:00 CHEMISTRY 2011-01-24 74.0 Memorial Sonia nn 20:11:00 CHEMISTRY 2011-01-24 1.2 [facility] Sonia nn 20:11:00 CHEMISTRY 2011-01-24 <0.02 Memorial Sonia nn 20:11:00 CHEMISTRY 2011-01-24 11.0 Memorial Sonia nn 20:11:00 CHEMISTRY 2011-01-24 0.2 Memorial Sonia nn 20:11:00 CHEMISTRY 2011-01-24 84.0 [facility] Sonia nn 20:11:00 CHEMISTRY 2011-01-24 16.0 Memorial Sonia nn 20:11:00 CHEMISTRY 2011-01-24 3.7 Memorial Sonia nn 20:11:00 CHEMISTRY 2011-01-24 20:11:00 Test Item Value Reference Range Interpretation Comme nts A/G Ratio (test code = A/G Ratio) 0.9 1 0.7-1.6 N Memorial VbjbzuhUBAAAFLRO5572-26-53 20:11:003.9[facility]ann[facility]MISTRY 2011-01-24 20:11:00 Test Item Value Reference Range Interpretation Comments B/C Ratio (test code = B/C Ratio) 13.0 1 6-25 N [facility] AtlgthfDIRAVVRXX0921-69-31 20:11:0013.7[facility] HermannCHEMISTRY 2011-01-24 20:11:72024.0[facility] LrfuwmySLDOUQYTE2580-04-42 20:11:001.6[facility]orial QmasswuTZSMAHOUT7390-85-87 20:11:0020.0[facility] VyughavKDAYELIRA4003-81-04 20:11:0097.0[facility]orial TmrjwfkGCIFBZDYW3917-59-34 20:11:003.7[facility] Rolo XCCGUSDBL6205-14-83 20:11:007.6[facility] TsjygpvMDGXTBYZR3242-39-63 20:11:009.1 [facility] KeyrmhbIMHDYUHVW6327-31-60 20:11:0025.0[facility] HermannCHEMISTRY 2011-01-24 20:11:57287.0[facility] CporwftRXCMBANEV3795-29-04 20:11:00 Test Item Value Reference Range Interpretation Comments CK MB Index (test 1.6 1 See_Comment N [Automate d message] The code = CK MB Index) system w [facility] generated this result transmit rosmery reference range : <=2.5. The reference range was not used to interpr et this result as jovanni l/abnormal. [facility] Area[facility]bgmicoNWDLDNVMHR2673-98-02 20:11:00 Test Item Value Reference Range Interpretation Comments PTT (test code = PTT) 30.9 s 22.9-35.8 N [facility] AreaJctyfwuJEUTDNYPKN1003-37-03 20:11:00 Test Item Value Reference Range Interpretation Comments PT (test code = PT) 12.0 s 12.0-14.7 N [facility] LydxtjdMLMEYIYGTT8258-95-01 20:11:00 Test Item Value Reference Range Interpretation Comments INR (test code = INR) 0.88 1 0.85-1.17 N [facility] AreaLkktgloYQGLILCTOG8565-60-48 20:11:00 Test Item Value Reference Range Interpretation Comments MCH (test code = MCH) 32.2 pg 27.0-31.0 H Memorial EbzatgfHGKBFZWYVE3636-48-49 20:11:0094.6[facility] HermannHEMATOLOGY 2011-01-24 20:11:0013.4[facility] DstdvkcOQFDFSETDQ2095-16-52 20:11:0034.0[facility] JpfhhwzAMQOWCIMVQ6846-11-74 20:11:007.5[facility] ZwxpcohKANQILLQNM9697-62-67 20:11:58476.0[facility] FbuoanaRDQUIGCLAG7338-52-41 20:11:0013.4[facility] [place] JSKRGNUQPE3068-26-18 20:11:004.16[facility] YdpqyikWZDIZAOTVI8888-00-05 20:11:00 39.4[facility] XdrkqvfKBHKENIOZH4281-01-87 20:11:005.5[facility] HermannHEMATOLOGY 2011-01-24 20:11:0066.1[facility] ZxtyqlpFXCPYFXUEJ7976-67-67 20:11:007.5[facility] ZvdapooSZWVYMEMEC6007-48-64 20:11:0022.5[facility] ZyrwjpcNVCGRCICLA1818-67-27 20:11:003.1[facility] XxmxlluECJKPTITGA9457-11-08 20:11:000.4[facility] [place] UDZFTOKIPL2872-85-41 20:11:001.2[facility] FvevhztDTGQMSRTRQ1184-96-48 20:11:000.2 Memorial MtxzfshVSRROYQJEK8353-03-74 20:11:000.8[facility] HermannHEMATOLOGY 2011-01-24 20:11:003.6[facility] UwyefmvWUEMIDIEIQ2618-26-38 20:11:000.0[facility] OygujgbLOWSZLIQMB5531-55-67 20:00:00Negative *NA*(01/24/2011 15:00:00) ?? [facility] AreaLayaedmYPCDVYDLDM2949-20-41 20:00:00Large *ABN*(01/24/2011 15:00:00) ?? [facility] Center[facility]ouppovNXBSSSFRHQ2809-65-86 20:00:00 Test Item Value Reference Range Interpretation Comments UA pH (test code = UA pH) 7.0 1 5.0-8.0 N [facility] AreaYcjrnhnXWBZLOCNKN8592-39-89 20:00:00>=300 mg/dL *ABN*(01/24/2011 15:00:00) ??[facility] AreaLmudvfdSCRXTGOOMT3982-92-11 20:00:00Red *ABN*(01/24/2011 15:00:00) ??[facility] CenterWltclxbVRGQZYOBNO2988-90-47 20:00:00Cloudy *ABN*(01/24/2011 15:00:00) ??[facility] AreaMhjuizeBNOSHSCCRB3000-04-09 20:00:00 Test Item Value Reference Range Interpretation Comments UA Spec Grav (test code = UA Spec 1.02 [address] [facility] CenterBfiogkhALSIJKLIQN4177-67-83 20:00:000-2 /HPF (01/24/2011 15:00:00) ?? [facility] AreaCkhpbtsYOAQROGRYD9445-65-48 20:00:00>100 /HPF *ABN*(01/24/2011 15:00:00) ??[facility] AreaMztayarQYKGJNLUMP8368-75-46 20:00:00Occasional /HPF (01/24/2011 15:00:00) ??[facility] AreaZwpoocwRCHHKEJCSS7090-94-97 20:00:00Negative (01/24/2011 15:00:00) ??[facility] AreaHnygzfuTJHTLBGEHN5025-94-02 20:00:00Moderate *ABN*(01/24/2011 15:00:00) ??[facility] AreaRvxehpnIVMUPKWASN9509-99-61 20:00:00Rare /LPF (01/24/2011 15:00:00) ??[facility] TrtcnswGJSBMQMSLQ3590-65-16 20:00:000.2 Memorial BjaljiqHIHAXSYZAS8080-47-37 20:00:00Negative (01/24/2011 15:00:00) ?? [facility] LepsizlMWZSBOCPFQ9165-74-14 20:00:00Negative *NA*(01/24/2011 15:00:00) ??[facility] EaduylzKNIGDCFKFN7795-97-57 22:41:00Negative *NA*(01/20/2011 17:41:00) ??[facility] FxrgjioTNTGJVALL2759-62-76 22:30:0014.3[facility] [place] PDAFUVKKJ4082-99-53 22:30:009.1[facility] BhipafoTSECFANVN2754-58-18 22:30:29119.0 Memorial HkseelkXYRMVYFLI5625-47-00 22:30:001.3[facility] HermannCHEMISTRY 2011-01-20 22:30:0090.0[facility] PixydstKYUPOBCEJ2320-32-00 22:30:0014.0[facility] XchblxoTAKNSYKSO1521-58-02 22:30:004.3[facility] XyqmbtxDRJUZUIWC3375-27-63 22:30:0028.0[facility] IszvetoLXNNIVIHQ1359-44-04 22:30:0097.0[facility] [place] XHGXGGYAUG3739-59-11 22:30:008.1[facility] SbgncgmGWKVTLTCBN9474-53-82 22:30:00 34.0[facility] DehkgsmLFDYHLCHHO6831-03-18 22:30:00 Test Item Value Reference Range Interpretation Comments MCH (test code = MCH) 31.8 pg 27.0-31.0 H Memorial XrhudhxCYIXULXMGF2592-09-55 22:30:0012.5[facility] HermannHEMATOLOGY 2011-01-20 22:30:89599.0[facility] VutzjonRCRJKHCABE5067-16-27 22:30:0014.4 Memorial AbgblxfEUQFIGQBCO0716-16-23 22:30:0093.6[facility] HermannHEMATOLOGY 2011-01-20 22:30:0042.2[facility] NfilbkpQCELNHXYAF5423-05-92 22:30:005.4[facility] SsspqzhYNPQVPLALX2717-04-09 22:30:004.51[facility] RpusdgdAIVRRZMVEO5621-80-85 22:30:001.6[facility] PmdjtavXZXVTIFMIY3757-59-32 22:30:003.5[facility] [place] XJDTDYFRPP0975-16-03 22:30:000.4[facility] JfbaauzVVVJGYCMFE8451-92-82 22:30:000.2 [facility] VmlxogsWKPVHUIOMD1675-51-63 22:30:000.1[facility] HermannHEMATOLOGY 2011-01-20 22:30:00Normal (01/20/2011 17:30:00) ??[facility]annHEMATOLOGY 2011-01-20 22:30:008.1[facility] GfdukeqVSVECRFNOM0949-27-17 22:30:003.0[facility] EhzhenaWBJFSRRMBS0066-90-61 22:30:0022.3[facility] RaovbpaUMNPDYFRES3316-92-08 22:30:001.2[facility] ZthedopICBONHXBZI5240-65-01 22:30:00Normal (01/20/2011 17:30:00) ??[facility] VdebxlaGRAOAWKUMS2487-11-94 22:30:0065.0[facility] [place] LAKRBFLLKA7722-14-57 22:30:99462 mg/dL *ABN*(01/20/2011 17:30:00) ??[facility] AreaZhekmxlNGNJQXYSBZ3234-75-23 22:30:00 Test Item Value Reference Range Interpretation Comments UA pH (test code = UA pH) 7.0 1 5.0-8.0 N [facility] BbrtkvmNUSFQWPOQO8839-33-63 22:30:00Negative (01/20/2011 17:30:00) ?? [facility] HzrgjupYRKEQWALWC2685-18-27 22:30:00Negative *NA*(01/20/2011 17:30:00) ??[facility] JazbnzbZKSYFZBBZM9220-52-69 22:30:00Negative (01/20/2011 17:30:00) ?? [facility] VijkfjyMXEOBCPZAF6480-12-97 22:30:00 Test Item Value Reference Range Interpretation Comments UA Spec Grav (test code = UA Spec 1.02 1 N Grav) [facility] LezjtluSZYJRAIOTA5236-83-26 22:30:00Cloudy *ABN*(01/20/2011 17:30:00) ??[facility] HuqjivyNVPJNSXDBE0584-07-89 22:30:00Red *ABN*(01/20/2011 17:30:00) ?? [facility] SeaiwtjUIRFUUBCFI5066-92-12 22:30:00Moderate *ABN*(01/20/2011 17:30:00) ??[facility] AetrguvOBXIMWVIWV6746-04-68 22:30:00Negative (01/20/2011 17:30:00) ?? [facility] JucofnzNNMGYTIBBF2977-18-87 22:30:000.2[facility] HermannURINALYSIS 2011-01-20 22:30:00Large *ABN*(01/20/2011 17:30:00) ??[facility] HermannURINALYSIS 2011-01-20 22:30:00Occasional /HPF *ABN*(01/20/2011 17:30:00) ??[facility] NFXMCIMYDB3708-03-70 22:30:00None Seen (01/20/2011 17:30:00) ??[facility] NARISJMMAM6915-31-06 22:30:00Rare /LPF (01/20/2011 17:30:00) ??[facility] BMPTSWBKIZ6107-38-31 22:30:000-2 /HPF (01/20/2011 17:30:00) ??[facility] SCPQPFLXUQ2603-67-04 22:30:00Occasional /HPF (01/20/2011 17:30:00) ??[facility] MpaccrcUCQEIDTLQN0051-23-79 22:30:00>100 /HPF *ABN*(01/20/2011 17:30:00) ?? [facility] [place]
[2020-12-04 17:01] VITALS: BMI 21.1
[2020-12-04] MEDS ORDERED: LORazepam 2 MG/ML VIAL IV PRN (17:04)
[2020-12-04] MEDS ORDERED: ONDANSETRON 4 MG/2 ML VIAL IV PRN (17:06)
[2020-12-04] MEDS ORDERED: BISACODYL 10 MG RECTAL SUPP PR PRN (17:07)
[2020-12-04] MEDS: LORazepam 2 MG/ML VIAL IV SCH ×2 (17:33→23:56)
[2020-12-04] MEDS: MORPHINE 2 MG/ML SYR IV SCH ×2 (17:34→22:39)
[2020-12-04] MEDS: SCOPOLAMINE HYDROBROMIDE PATCH TD SCH (17:34)
[2020-12-04] MEDS: MORPHINE 2 MG/ML SYR IV PRN (20:33)
[2020-12-04] MEDS: ACETAMINOPHEN 650MG/RECT SUPP PR PRN (20:34)
[2020-12-05] MEDS: MORPHINE 2 MG/ML SYR IV PRN (01:42)
[2020-12-05] MEDS: MORPHINE 2 MG/ML SYR IV SCH ×4 (05:15→22:01)
[2020-12-05] MEDS: LORazepam 2 MG/ML VIAL IV SCH ×3 (06:05→17:35)
[2020-12-06] MEDS: LORazepam 2 MG/ML VIAL IV SCH ×4 (00:04→17:38)
[2020-12-06] MEDS: MORPHINE 2 MG/ML SYR IV SCH ×4 (04:30→21:44)
[2020-12-07] MEDS: LORazepam 2 MG/ML VIAL IV SCH ×4 (00:05→17:42)
[2020-12-07] MEDS: MORPHINE 2 MG/ML SYR IV SCH ×4 (04:02→23:23)
[2020-12-07] MEDS: MORPHINE 2 MG/ML SYR IV PRN ×3 (08:24→20:35)
[2020-12-07] MEDS: SCOPOLAMINE HYDROBROMIDE PATCH TD SCH (17:33)
[2020-12-08] MEDS: LORazepam 2 MG/ML VIAL IV SCH ×4 (00:50→18:00)
[2020-12-08] MEDS: MORPHINE 2 MG/ML SYR IV PRN ×2 (02:33→07:53)
[2020-12-08] MEDS: MORPHINE 2 MG/ML SYR IV SCH ×4 (04:30→23:36)
[2020-12-09] MEDS: LORazepam 2 MG/ML VIAL IV SCH ×4 (00:10→17:13)
[2020-12-09] MEDS: MORPHINE 2 MG/ML SYR IV SCH ×4 (05:14→23:23)
[2020-12-09] MEDS: MORPHINE 2 MG/ML SYR IV PRN (20:14)
[2020-12-10] MEDS: ACETAMINOPHEN 650MG/RECT SUPP PR PRN ×2 (00:10→11:35)
[2020-12-10] MEDS: LORazepam 2 MG/ML VIAL IV SCH ×4 (00:10→18:56)
[2020-12-10] MEDS: MORPHINE 2 MG/ML SYR IV SCH ×4 (05:49→23:22)
[2020-12-10] MEDS: MORPHINE 2 MG/ML SYR IV PRN (11:35)
[2020-12-10] MEDS: SCOPOLAMINE HYDROBROMIDE PATCH TD SCH (17:11)
[2020-12-11] MEDS: LORazepam 2 MG/ML VIAL IV SCH ×4 (00:54→18:07)
[2020-12-11] MEDS: MORPHINE 2 MG/ML SYR IV SCH ×4 (05:32→23:12)
[2020-12-12] MEDS: MORPHINE 2 MG/ML SYR IV SCH ×4 (07:24→22:37)
[2020-12-12] MEDS: LORazepam 2 MG/ML VIAL IV SCH ×4 (07:25→17:04)
[2020-12-12] MEDS: ACETAMINOPHEN 650MG/RECT SUPP PR PRN (08:56)
[2020-12-13] MEDS: LORazepam 2 MG/ML VIAL IV SCH ×4 (00:14→17:01)
[2020-12-13] MEDS: MORPHINE 2 MG/ML SYR IV SCH ×4 (04:47→22:18)
[2020-12-13] MEDS: SCOPOLAMINE HYDROBROMIDE PATCH TD SCH (17:02)
[2020-12-14] MEDS: LORazepam 2 MG/ML VIAL IV SCH ×5 (00:16→23:57)
[2020-12-14] MEDS: MORPHINE 2 MG/ML SYR IV SCH ×4 (04:45→23:09)
[2020-12-14 21:10] VITALS: O2SAT 92
[2020-12-14 21:15] VITALS: BP 106/67; TEMP 97.5
== END 2020-12-15 05:00 | disposition expired | DRG 951 ==
LOC: 3RD-ICU 16:48
PROVIDERS: ADMIT Internal Medicine Hematology & Oncology; ATTEND Internal Medicine Hematology & Oncology
DX: Z51.5 Encounter for palliative care (principal); U07.1 COVID-19; I25.10 Atherosclerotic heart disease of native coronary artery without angina pectoris; Z86.73 Personal history of transient ischemic attack (TIA), and cerebral infarction without residual deficits
CPT/HCPCS: J2270; U0003